=== PATIENT | male | born 1960 | race Two or more races ===

== ENCOUNTER 2020-02-14 12:22 | Emergency (ER) | payer OTHER, SELFPAY ==
[2020-02-14 12:58] VITALS: BP 116/75; PULSE 61; RESP 18; TEMP 36.8; O2SAT 98; BMI 22.1
--- NOTE | 2020-02-14 12:59 | XR_ITS ---
EXAMINATION: XR FINGER, LEFT CLINICAL INFORMATION: Thumb clicking COMPARISON: None TECHNIQUE: Three views of the left thumb. FINDINGS: The bones and soft tissues are normal. No fracture. Alignment is anatomic. Joint spaces are maintained. XR/XR finger LT min 2V IMPRESSION: Unremarkable exam.
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
== END 2020-02-14 14:20 | disposition home or self-care (01) ==
LOC: HO.ED 14:02
PROVIDERS: Emergency Provider Emergency Medicine
DX: S56.312A Strain of extensor or abductor muscles, fascia and tendons of left thumb at forearm level, initial encounter (principal); M79.645 Pain in left finger(s); I10 Essential (primary) hypertension; X58.XXXA Exposure to other specified factors, initial encounter; Y93.9 Activity, unspecified; Y92.9 Unspecified place or not applicable; Y99.9 Unspecified external cause status; Z79.899 Other long term (current) drug therapy
CPT/HCPCS: 73140; 99283

== ENCOUNTER 2020-02-23 09:28 | Emergency (ER) | payer OTHER, SELFPAY ==
--- NOTE | 2020-02-23 10:24 | ECG_ITS ---
Test Reason : LIGHT HEADED Blood Pressure : / mmHG Vent. Rate : 049 BPM Atrial Rate : 049 BPM P-R Int : 144 ms QRS Dur : 106 ms QT Int : 428 ms P-R-T Axes : 059 065 048 degrees QTc Int : 386 ms Sinus bradycardia Voltage criteria for left ventricular hypertrophy Abnormal ECG No significant changes seen Referred By: Leela Owen Electronically Signed By:MARIAJOSE ASHRAF MD
[2020-02-23 10:25] VITALS: BP 136/77; PULSE 52; RESP 18; TEMP 37.2; O2SAT 98; BMI 23.0
--- NOTE | 2020-02-23 10:25 | XR_ITS ---
EXAMINATION: XR CHEST CLINICAL INFORMATION: Cough COMPARISON: None TECHNIQUE: Frontal view of the chest was obtained. FINDINGS: Cardiac and mediastinal silhouette is within normal limits. Lungs are symmetric expanded.. No focal consolidation. No effusion, edema or pneumothorax. No acute osseous abnormality seen. XR/XR chest 1V IMPRESSION: No evidence of focal consolidation.
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
[2020-02-23 10:52] LABS: MANUAL DIFF FLAG NO
[2020-02-23 10:56] LABS: Basophils Percent Auto 0.3 % (0-2); Eosinophils Absolute Auto 0.1 X10*3/uL (0.0-0.4); Eosinophils Percent Auto 0.6 % (0-4); Hematocrit 41.1 % (42-52); Hemoglobin 14.2 g/dl (14.0-18.0); Imm Gran Abs Auto 0.03 X10*3/uL (0.00-0.03); Imm Gran Pct Auto 0.3 % (0.0-0.4); Lymphocytes Absolute Auto 2.8 X10*3/uL (1.2-4.9); Lymphocytes Percent Auto 26.7 % (20-40); Mean Corpuscular HGB Conc 34.5 g/dl (31.0-36.0); Mean Corpuscular Hemoglobin 31.6 pg (27.0-33.0); Mean Corpuscular Volume 91.3 fL (80-98); Mean Platelet Volume 10.4 fL (9.4-12.4); Monocytes Absolute Auto 0.8 X10*3/uL (0.1-1.2); Monocytes Percent Auto 7.4 % (2-11); Neutrophils Absolute Auto 6.7 X10*3/uL (2.0-8.3); Neutrophils Percent Auto 64.7 % (45-73); Platelet Count 199 X10*3/uL (160-400); Red Cell Distribution Width 11.7 % (11.0-16.0); White Blood Count 10.4 X10*3/uL (4.8-10.8)
[2020-02-23 11:23] LABS: Anion Gap 12 (12-20); Blood Urea Nitrogen 22 mg/dL (9-16); Calcium 9.3 mg/dL (8.4-10.2); Carbon Dioxide 24 mmol/L (22-29); Chloride 105 mmol/L (96-108); Creatinine Clr Calc Pharmacy 85.5; Estimated Glomerular Filt Rate > 60; Glucose Random 79 mg/dL (60-115); Sodium 137 mmol/L (135-145)
[2020-02-23 11:27] LABS: Troponin-I High Sensitivity < 3.5 ng/L (<3.5-35.0)
[2020-02-23 11:31] VITALS: BP 118/71; PULSE 45; RESP 16; TEMP 36.6; O2SAT 98
[2020-02-23] MEDS: ondansetron HCL 4 MG/2 ML VIAL IVPUSH (11:33)
[2020-02-23] MEDS: Acetaminophen 325 MG TABLET 650 MG PO (11:33)
[2020-02-23] MEDS: 0.9 % Sodium Chloride 500 ML IV (11:33)
[2020-02-23 13:13] LABS: Alanine Aminotransferase 23 U/L (0-40); Albumin Level 3.9 g/dL (3.5-5.0); Alkaline Phosphatase 58 U/L (39-117); Aspartate Amino Transferase 22 U/L (5-37); Bilirubin Direct 0.2 mg/dL (0.0-0.5); Bilirubin Total 0.5 mg/dL (0.0-1.0); Lipase 15 U/L (8-78); Magnesium 2.1 mg/dL (1.6-2.6); Total Protein 6.5 g/dL (6.5-8.0)
== END 2020-02-23 13:30 | disposition home or self-care (01) ==
PROVIDERS: Emergency Provider Emergency Medicine
DX: M79.10 Myalgia, unspecified site (principal); I10 Essential (primary) hypertension; R11.2 Nausea with vomiting, unspecified; R42 Dizziness and giddiness; F17.200 Nicotine dependence, unspecified, uncomplicated; Z20.828 Contact with and (suspected) exposure to other viral communicable diseases; Z71.6 Tobacco abuse counseling; Z79.899 Other long term (current) drug therapy
CPT/HCPCS: 36415; 71045; 80048; 80076; 83690; 83735; 84484; 85025; 93005; 96361; 96374; 99284; J2405; U0003

== ENCOUNTER 2020-02-26 09:17 | Emergency (ER) | payer OTHER, SELFPAY ==
[2020-02-26 09:28] VITALS: BP 158/107; PULSE 71; RESP 18; TEMP 36.6; O2SAT 100; BMI 22.1
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
[2020-02-26 09:48] LABS: Basophils Percent Auto 0.4 % (0-2); Eosinophils Absolute Auto 0.2 X10*3/uL (0.0-0.4); Eosinophils Percent Auto 2.5 % (0-4); Hematocrit 43.8 % (42-52); Hemoglobin 15.2 g/dl (14.0-18.0); Imm Gran Abs Auto 0.02 X10*3/uL (0.00-0.03); Imm Gran Pct Auto 0.3 % (0.0-0.4); Lymphocytes Absolute Auto 2.6 X10*3/uL (1.2-4.9); MANUAL DIFF FLAG NO; Mean Corpuscular HGB Conc 34.7 g/dl (31.0-36.0); Mean Corpuscular Hemoglobin 31.9 pg (27.0-33.0); Mean Corpuscular Volume 91.8 fL (80-98); Mean Platelet Volume 10.1 fL (9.4-12.4); Monocytes Absolute Auto 0.6 X10*3/uL (0.1-1.2); Neutrophils Absolute Auto 3.5 X10*3/uL (2.0-8.3); Neutrophils Percent Auto 50.8 % (45-73); Platelet Count 207 X10*3/uL (160-400); Red Blood Count 4.77 X10*6/uL (4.60-5.80); Red Cell Distribution Width 11.3 % (11.0-16.0); White Blood Count 6.9 X10*3/uL (4.8-10.8)
[2020-02-26] MEDS: LORazepam 2 MG/ML VIAL 1 MG IVPUSH (09:50)
[2020-02-26] MEDS: 0.9 % Sodium Chloride 500 ML 1000 ML IV (09:50)
[2020-02-26] MEDS: ondansetron HCL 4 MG/2 ML VIAL IVPUSH (09:50)
[2020-02-26 10:23] LABS: Ethanol 38 mg/dL
[2020-02-26 10:29] LABS: Alanine Aminotransferase 29 U/L (0-40); Albumin Level 4.6 g/dL (3.5-5.0); Alkaline Phosphatase 77 U/L (39-117); Anion Gap 11 (12-20); Aspartate Amino Transferase 26 U/L (5-37); Bilirubin Direct 0.2 mg/dL (0.0-0.5); Bilirubin Total 0.6 mg/dL (0.0-1.0); Blood Urea Nitrogen 17 mg/dL (9-16); Calcium 9.7 mg/dL (8.4-10.2); Carbon Dioxide 29 mmol/L (22-29); Chloride 101 mmol/L (96-108); Creatinine Clr Calc Pharmacy 78.2; Estimated Glomerular Filt Rate > 60; Glucose Random 103 mg/dL (60-115); Lipase 22 U/L (8-78); Potassium 3.9 mmol/l (3.3-5.1); Sodium 137 mmol/L (135-145); Total Protein 7.7 g/dL (6.5-8.0)
[2020-02-26] MEDS: Famotidine/PF 20 MG/2 ML VIAL IVPUSH (10:29)
[2020-02-26 10:33] LABS: Glucose Urine UA NEG (NEG); Leukocyte Esterase Urine NEG (NEG); Nitrite Urine NEG (NEG); Urine Blood NEG (NEG); Urine Ketones NEG (NEG); Urine Protein NEG (NEG-TRACE)
[2020-02-26 10:39] LABS: Appearance Urine CLEAR; Color Urine YELLOW; UACC Culture Trigger NO
[2020-02-26 11:16] VITALS: BP 114/72; PULSE 60; RESP 16
== END 2020-02-26 11:41 | disposition home or self-care (01) ==
PROVIDERS: Emergency Provider Emergency Medicine
DX: K29.20 Alcoholic gastritis without bleeding (principal); R10.9 Unspecified abdominal pain; F41.1 Generalized anxiety disorder; F43.0 Acute stress reaction; Z79.899 Other long term (current) drug therapy
CPT/HCPCS: 36415; 80048; 80076; 80320; 81003; 83690; 85025; 96374; 96375; 99284; J2060; J2405

== ENCOUNTER 2020-02-29 22:13 | Emergency (ER) | payer OTHER, SELFPAY ==
[2020-02-29 22:19] VITALS: BP 151/81; PULSE 73; RESP 19; TEMP 36.8; O2SAT 100; BMI 50.3
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
--- NOTE | 2020-02-29 23:04 | XR_ITS ---
EXAMINATION: XR ABDOMEN KUB CLINICAL INDICATION: Severe constipation. COMPARISON: None TECHNIQUE: AP view of the abdomen. FINDINGS: Small volume of stool in the colon. Most of the stool is in the ascending colon with very little stool in the left colon. No abnormal dilated bowel. Nonobstructive bowel pattern. No radiopaque urinary calculi. XR/XR KUB IMPRESSION: Normal abdomen. Small volume of stool in colon.
[2020-02-29] MEDS: Milk of Magnesia 30 ML ORAL.SUSP PO (23:27)
[2020-02-29] MEDS: bisacodyL 5 MG TABLET.DR 10 MG PO (23:27)
== END 2020-03-01 | disposition home or self-care (01) ==
PROVIDERS: Emergency Provider Internal Medicine
DX: K64.8 Other hemorrhoids (principal); K59.04 Chronic idiopathic constipation; F17.200 Nicotine dependence, unspecified, uncomplicated; Z71.6 Tobacco abuse counseling; F12.90 Cannabis use, unspecified, uncomplicated; Z79.899 Other long term (current) drug therapy
CPT/HCPCS: 74018; 99283

== ENCOUNTER 2020-03-31 09:28 | Emergency (ER) | payer OTHER, SELFPAY ==
[2020-03-31 09:51] VITALS: BP 145/96; PULSE 68; RESP 18; TEMP 36.7; O2SAT 99; BMI 22.1
--- NOTE | 2020-03-31 10:32 | ECG_ITS ---
Test Reason : MULTI COMPLAINTS Blood Pressure : / mmHG Vent. Rate : 055 BPM Atrial Rate : 055 BPM P-R Int : 150 ms QRS Dur : 100 ms QT Int : 412 ms P-R-T Axes : 059 064 048 degrees QTc Int : 394 ms Sinus bradycardia Moderate voltage criteria for LVH, may be normal variant Borderline ECG When compared with ECG of 23-FEB-2020 10:33, No significant change was found Referred By: Anabella Smith Electronically Signed By:Steven Kaur
--- NOTE | 2020-03-31 10:33 | XR_ITS ---
EXAMINATION: XR CHEST CLINICAL INFORMATION: Shortness of breath, abdominal pain COMPARISON: Chest radiograph 02/23/2020 TECHNIQUE: Portable upright AP view of the chest was obtained. FINDINGS: The lungs are clear. There is no airspace consolidation, definite groundglass opacity, or effusion. The heart is normal in size. The costophrenic sulci are clear. The vascularity is normal. The hilar and mediastinal contours are unremarkable. No visible acute bony abnormality. XR/XR chest 1V IMPRESSION: Unremarkable examination.
[2020-03-31] MEDS: 0.9 % Sodium Chloride 1,000 ML 999 ML IVCONT (11:11)
[2020-03-31 11:13] LABS: MANUAL DIFF FLAG NO
[2020-03-31 11:14] LABS: Basophils Percent Auto 0.3 % (0-2); Eosinophils Absolute Auto 0.1 X10*3/uL (0.0-0.4); Hematocrit 41.9 % (42-52); Hemoglobin 14.7 g/dl (14.0-18.0); Imm Gran Abs Auto 0.02 X10*3/uL (0.00-0.03); Imm Gran Pct Auto 0.3 % (0.0-0.4); Lymphocytes Absolute Auto 1.7 X10*3/uL (1.2-4.9); Lymphocytes Percent Auto 23.9 % (20-40); Mean Corpuscular HGB Conc 35.1 g/dl (31.0-36.0); Mean Corpuscular Hemoglobin 31.3 pg (27.0-33.0); Mean Corpuscular Volume 89.3 fL (80-98); Mean Platelet Volume 10.5 fL (9.4-12.4); Monocytes Absolute Auto 0.4 X10*3/uL (0.1-1.2); Monocytes Percent Auto 6.1 % (2-11); Neutrophils Absolute Auto 4.7 X10*3/uL (2.0-8.3); Neutrophils Percent Auto 67.4 % (45-73); Platelet Count 178 X10*3/uL (160-400); Red Blood Count 4.69 X10*6/uL (4.60-5.80); Red Cell Distribution Width 11.8 % (11.0-16.0); White Blood Count 6.9 X10*3/uL (4.8-10.8)
[2020-03-31 11:21] LABS: Glucose Urine UA NEG (NEG); Leukocyte Esterase Urine NEG (NEG); Nitrite Urine NEG (NEG); Specific Gravity - Urine 1.015 (1.005-1.025); Urine Blood NEG (NEG); Urine Ketones NEG (NEG); Urine Protein NEG (NEG-TRACE)
[2020-03-31 11:23] LABS: Appearance Urine CLEAR; Color Urine YELLOW
[2020-03-31 11:24] LABS: D Dimer < 200 NG/ML
[2020-03-31 11:26] LABS: Prothrombin Time 11.7 SEC (10.8-13.0)
[2020-03-31 11:36] LABS: Ethanol < 10 mg/dL
[2020-03-31 11:37] LABS: Alanine Aminotransferase 19 U/L (0-40); Albumin Level 4.4 g/dL (3.5-5.0); Alkaline Phosphatase 65 U/L (39-117); Anion Gap 14 (12-20); Aspartate Amino Transferase 21 U/L (5-37); Bilirubin Direct 0.2 mg/dL (0.0-0.5); Bilirubin Total 0.4 mg/dL (0.0-1.0); Blood Urea Nitrogen 21 mg/dL (9-16); Calcium 9.9 mg/dL (8.4-10.2); Carbon Dioxide 27 mmol/L (22-29); Chloride 102 mmol/L (96-108); Creatinine Clr Calc Pharmacy 85.1; Estimated Glomerular Filt Rate > 60; Glucose Random 99 mg/dL (60-115); Magnesium 2.1 mg/dL (1.6-2.6); Potassium 4.2 mmol/l (3.3-5.1); Sodium 139 mmol/L (135-145); Total Protein 7.4 g/dL (6.5-8.0)
[2020-03-31 11:38] LABS: Lipase 27 U/L (8-78)
[2020-03-31 11:38] LABS: Amphetamine Screen Urine Not Detected (Not Detect); Barbiturates, Urine Not Detected (Not Detect); Benzodiazepines Screen Urine Not Detected (Not Detect); Cannabinoid Screen Urine POSITIVE (Not Detect); Cocaine Screen Urine Not Detected (Not Detect); Opiate Screen Urine Not Detected (Not Detect); Phencyclidine Screen Urine Not Detected (Not Detect)
--- NOTE | 2020-03-31 11:38 | CT_ITS ---
EXAMINATION: CT ABDOMEN AND PELVIS WITHOUT CONTRAST CLINICAL INFORMATION: Abdominal pain COMPARISON: KUB February 2020 TECHNIQUE: Multidetector volumetric imaging was performed from the superior aspect of the liver through the pubic symphysis. Sagittal and coronal reformatted images were obtained on the technologist's workstation. This CT examination was performed using dose optimization techniques as appropriate, variously including the following: *Automated exposure control *Adjustment of mA and/or kV according to patient size (this includes techniques or standardized protocols for targeted exams where dose is matched to indication/reason for exam; i.e. extremities or head) *Use of iterative reconstruction technique DLP: 384 mGy-cm FINDINGS: LUNG BASES: The visualized lung bases are unremarkable. LIVER, GALLBLADDER, AND BILIARY TREE: The liver is normal in size, shape, and attenuation. No focal hepatic lesion or biliary ductal dilatation is present. The gallbladder is unremarkable with no evidence of radiopaque gallstones, gallbladder wall thickening, or obvious pericholecystic inflammatory changes. PANCREAS: Unremarkable. SPLEEN: Unremarkable. ADRENAL GLANDS: Unremarkable. KIDNEYS AND URETERS: There is a small 1 mm nonobstructing stone in the lower pole of the left kidney. The kidneys are otherwise unremarkable. No hydronephrosis, ureteral dilatation or ureteral stone is seen. BLADDER: There is mild diffuse bladder wall thickening. No bladder stone or mass is seen. GASTROINTESTINAL TRACT: The small and large bowel are unremarkable. The appendix is unremarkable. ABDOMINAL WALL: No significant hernia is appreciated. LYMPH NODES: Normal. VASCULAR: There is evidence of atherosclerotic disease. No aneurysm is seen. PELVIC VISCERA: The prostate gland is slightly enlarged measuring 3 x 4.5 x 4 cm. OSSEOUS STRUCTURES: There is degenerative disc disease at L4-L5. There is multilevel mild degenerative spondylosis. CT/CT abdomen pelvis wo con IMPRESSION: Small 1 mm nonobstructing left lower pole renal stone. Mild diffuse bladder wall thickening. Slightly enlarged prostate gland.
[2020-03-31 11:44] LABS: B Type Natriuretic Peptide < 10 pg/mL (<100); Troponin-I High Sensitivity < 3.5 ng/L (<3.5-35.0)
[2020-03-31 11:50] LABS: Influenza A PCR NEGATIVE (Negative); Influenza B PCR NEGATIVE (Negative); Resp Syncy Virus RNA Qual PCR NEGATIVE (Negative); SARS COV2 PCR INHOUSE NEGATIVE (Negative)
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
[2020-03-31 14:12] VITALS: BP 113/71; PULSE 50; RESP 18
== END 2020-03-31 15:02 | disposition home or self-care (01) ==
PROVIDERS: Physician Assistant Medical; Emergency Provider Emergency Medicine Emergency Medical Services
DX: J45.909 Unspecified asthma, uncomplicated (principal); Z20.828 Contact with and (suspected) exposure to other viral communicable diseases; N40.0 Benign prostatic hyperplasia without lower urinary tract symptoms; N20.0 Calculus of kidney; I10 Essential (primary) hypertension; F12.90 Cannabis use, unspecified, uncomplicated
CPT/HCPCS: 0241U; 36415; 71045; 74176; 80048; 80076; 80307; 80320; 81003; 83690; 83735; 83880; 84484; 85025; 85379; 85610; 93005; 96360; 99284

== ENCOUNTER 2020-04-12 21:02 | Emergency (ER) | payer OTHER, SELFPAY ==
[2020-04-12 21:20] VITALS: BP 141/75; PULSE 70; RESP 18; TEMP 36.6; O2SAT 97; BMI 22.1
[2020-04-12 23:49] VITALS: BP 120/75; PULSE 64; RESP 16; O2SAT 99
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
[2020-04-13 00:27] LABS: MANUAL DIFF FLAG NO
[2020-04-13 00:31] LABS: Basophils Percent Auto 0.4 % (0-2); Eosinophils Absolute Auto 0.3 X10*3/uL (0.0-0.4); Eosinophils Percent Auto 3.5 % (0-4); Hematocrit 38.4 % (42-52); Hemoglobin 13.4 g/dl (14.0-18.0); Imm Gran Abs Auto 0.01 X10*3/uL (0.00-0.03); Imm Gran Pct Auto 0.1 % (0.0-0.4); Lymphocytes Absolute Auto 2.9 X10*3/uL (1.2-4.9); Mean Corpuscular HGB Conc 34.9 g/dl (31.0-36.0); Mean Corpuscular Hemoglobin 31.6 pg (27.0-33.0); Mean Corpuscular Volume 90.6 fL (80-98); Mean Platelet Volume 10.5 fL (9.4-12.4); Monocytes Absolute Auto 0.6 X10*3/uL (0.1-1.2); Monocytes Percent Auto 7.7 % (2-11); Neutrophils Percent Auto 51.3 % (45-73); OBS Int Ctl Valid YES; OBS1 NEG (NEG); Platelet Count 185 X10*3/uL (160-400); Red Blood Count 4.24 X10*6/uL (4.60-5.80); White Blood Count 7.7 X10*3/uL (4.8-10.8)
[2020-04-13 00:38] LABS: Prothrombin Time 11.9 SEC (10.8-13.0)
[2020-04-13 01:04] LABS: Alanine Aminotransferase 26 U/L (0-40); Albumin Level 4.3 g/dL (3.5-5.0); Alkaline Phosphatase 61 U/L (39-117); Anion Gap 12 (12-20); Aspartate Amino Transferase 23 U/L (5-37); Bilirubin Total 0.6 mg/dL (0.0-1.0); Blood Urea Nitrogen 25 mg/dL (9-16); Calcium 9.3 mg/dL (8.4-10.2); Carbon Dioxide 28 mmol/L (22-29); Chloride 102 mmol/L (96-108); Creatinine Clr Calc Pharmacy 73.1; Estimated Glomerular Filt Rate > 60; Glucose Random 88 mg/dL (60-115); Potassium 3.7 mmol/l (3.3-5.1); Sodium 138 mmol/L (135-145)
== END 2020-04-13 03:05 | disposition home or self-care (01) ==
PROVIDERS: Emergency Provider Student in an Organized Health Care Education/Training Program
DX: K64.8 Other hemorrhoids (principal); I10 Essential (primary) hypertension
CPT/HCPCS: 36415; 80053; 82272; 85025; 85610; 99284

== ENCOUNTER 2020-04-16 12:49 | Emergency (ER) | payer OTHER, SELFPAY ==
[2020-04-16 13:17] VITALS: BP 119/65; PULSE 60; RESP 16; TEMP 36.8; O2SAT 97; BMI 22.1
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
[2020-04-16] MEDS: 0.9 % Sodium Chloride 1,000 ML 999 ML IVCONT (14:52)
[2020-04-16] MEDS: Morphine Sulfate 4 MG/ML CARTRIDGE IVPUSH (14:52)
[2020-04-16] MEDS: ondansetron HCL 4 MG/2 ML VIAL IVPUSH (14:53)
[2020-04-16 15:05] LABS: Basophils Percent Auto 0.4 % (0-2); Eosinophils Absolute Auto 0.2 X10*3/uL (0.0-0.4); Eosinophils Percent Auto 2.5 % (0-4); Hemoglobin 13.6 g/dl (14.0-18.0); Imm Gran Abs Auto 0.02 X10*3/uL (0.00-0.03); Imm Gran Pct Auto 0.2 % (0.0-0.4); Lymphocytes Absolute Auto 2.4 X10*3/uL (1.2-4.9); Lymphocytes Percent Auto 28.2 % (20-40); MANUAL DIFF FLAG NO; Mean Corpuscular HGB Conc 34.9 g/dl (31.0-36.0); Mean Corpuscular Hemoglobin 31.4 pg (27.0-33.0); Mean Corpuscular Volume 90.1 fL (80-98); Mean Platelet Volume 10.3 fL (9.4-12.4); Monocytes Absolute Auto 0.5 X10*3/uL (0.1-1.2); Monocytes Percent Auto 6.4 % (2-11); Neutrophils Absolute Auto 5.2 X10*3/uL (2.0-8.3); Neutrophils Percent Auto 62.3 % (45-73); Platelet Count 191 X10*3/uL (160-400); Red Blood Count 4.33 X10*6/uL (4.60-5.80); Red Cell Distribution Width 11.6 % (11.0-16.0); White Blood Count 8.4 X10*3/uL (4.8-10.8)
[2020-04-16 15:32] LABS: Alanine Aminotransferase 23 U/L (0-40); Albumin Level 4.3 g/dL (3.5-5.0); Alkaline Phosphatase 70 U/L (39-117); Anion Gap 11 (12-20); Aspartate Amino Transferase 21 U/L (5-37); Bilirubin Total 0.5 mg/dL (0.0-1.0); Blood Urea Nitrogen 14 mg/dL (9-16); Calcium 9.2 mg/dL (8.4-10.2); Carbon Dioxide 29 mmol/L (22-29); Chloride 104 mmol/L (96-108); Creatinine Clr Calc Pharmacy 90.1; Estimated Glomerular Filt Rate > 60; Glucose Random 118 mg/dL (60-115); Lipase 26 U/L (8-78); Potassium 3.9 mmol/l (3.3-5.1); Sodium 140 mmol/L (135-145); Total Protein 6.9 g/dL (6.5-8.0)
== END 2020-04-16 16:27 | disposition home or self-care (01) ==
PROVIDERS: Emergency Provider Emergency Medicine
DX: K59.00 Constipation, unspecified (principal); R10.2 Pelvic and perineal pain; F17.200 Nicotine dependence, unspecified, uncomplicated; Z71.6 Tobacco abuse counseling; Z79.899 Other long term (current) drug therapy
CPT/HCPCS: 36415; 80053; 83690; 85025; 96361; 96374; 96375; 99283; 99284; J2270; J2405

== ENCOUNTER → 2020-04-24 12:14 | Outpatient (BNVA) | payer OTHER, SELFPAY | PROVIDERS: Visit Provider Surgery | DX: K64.9 Unspecified hemorrhoids (principal) | CPT/HCPCS: 46600; 99202 ==

== ENCOUNTER 2020-05-19 08:31 | Day surgery (SDC) | payer OTHER, SELFPAY ==
[2020-05-12 14:51] VITALS: BMI 22.1
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
[2020-05-19 08:55] VITALS: BP 151/90; PULSE 66; RESP 16; TEMP 37.2; O2SAT 100
[2020-05-19] MEDS: Lactated Ringers 1,000 ML 100 ML IVCONT (09:00)
--- NOTE | 2020-05-19 09:03 | MHC.SHP ---
Pre-Procedural Eval Section B Chief Complaint: Bleeding hemorrhoids Allergies: Allergies Allergy/AdvReac Type Severity Reaction Status Date / Time iodine [IODINE] Allergy Unknown ITCHING Verified 05/12/20 14:32 quetiapine [From SEROQUEL] Allergy Unknown TIGHTNESS Verified 05/12/20 14:32 IN THROAT levofloxacin [From Levaquin] Allergy Anaphylaxis Verified 05/12/20 14:32 Plan I have reviewed the history and physical and performed a pertinent physical examination on my patient. No changes have occurred unless specified.
[2020-05-19 10:04] VITALS: BP 118/64; PULSE 48; RESP 16; TEMP 36.8; O2SAT 98
--- NOTE | 2020-05-19 10:04 | PM.OP ---
Brief Operative Note Date of Service: 05/19/20 Pre-op diagnosis: Internal and external hemorrhoids with pain and bleeding Post-op diagnosis: same Procedure: EUA, hemorrhoidectomy, x2 columns Surgeon: Kaiser Perkins MD Anesthesia: GLMA Estimated blood loss (mL): 20 Pathology: other (hemorrhoids) Condition: stable Disposition: PACU
--- NOTE | 2020-05-19 10:06 | P.OP_ITS ---
Operative Note Operative Note Date of Service: 05/19/20 Narrative: PROCEDURE EXAM UNDER ANESTHESIA, HEMORRHOIDECTOMY X2 COLUMNS PREOP DIAGNOSIS: INTERNAL AND EXTERNAL HEMORRHOIDS WITH PAIN AND BLEEDING POSTOP DIAGNOSIS: THE SAME ABOVE SURGEON: ADRIEN LO MD The patient is a 60-year-old male with longstanding issues with his hemorrhoids described as pain and bleeding. He therefore wanted to proceed with hemorrhoidectomy. He understood the technique of the procedure. He was aware of the risks, benefits, and alternatives. He was brought to the operating room placed in prone jeni-knife position under general anesthesia via laryngeal mask airway. The buttocks were retracted with wide tape laterally. The perianal was prepped and draped in the usual sterile fashion. A surgical time-out was done. The patient received Cefotan 2 g IV preoperatively. Examination of the anal orifice revealed an external hemorrhoid, bulky, on the right side. I inserted a Khalif Rivas retractor and examined the anal circumferentially. There was note of an internal and external hemorrhoidal column, bulky, on the right side. There was note of a hemorrhoidal column on the left which was also mix of internal and external hemorrhoids with the internal component appearing to prolapse easily. There were no other lesions. There was no fissure. There was no induration in the anal canal. I retracted the hemorrhoidal column on the right side with Marcelo graspers into the field of view. I proceeded to apply a figure-eight stitch with a chromic 3-0 at the pedicle of the hemorrhoid column on the right side. I made incision around this hemorrhoid column to the perianal skin using a blade 15. I excised this hemorrhoidal column above the plane of sphincters using scissors all the way to the pedicle. I then closed this incision with a running chromic 3-0 stitch. I proceeded to apply Marcelo graspers at the hemorrhoidal column on the left. This was used to retract the hemorrhoidal column out into the field. I made a figure of eight stitch at the pedicle proximal to the dentate line using chromic 3-0 and made an incision around this column to the anal verge using blade 15. I then excised this hemorrhoid column using scissors above the plane of sphincters . I closed this incision with a running chromic 3-0 stitch. Multiple additional hemostatic [id number] sutures were placed on the proximal aspect because of oozing. We observed for hemostasis. We cough fistulae irrigated and suctioned the irrigant fluid. I observed for about 2 minutes and once hemostasis was ensured I proceeded to then position a Gel-Foam packing into the anal canal. I infiltrated the perianal area with Marcaine 0.5% for postop analgesia. The Khalif Rivas retractor was removed the procedure was completed. The patient tolerated the procedure well. There were no immediate complications noted. Initial and final counts of sponges and instruments were correct. Estimated blood about 20 cc. The patient was extubated without difficulty and transferred to recovery room with stable by signs.
[2020-05-19 10:07] VITALS: BP 110/65; PULSE 48; RESP 14; O2SAT 94
[2020-05-19 10:12] VITALS: BP 109/63; PULSE 53; RESP 16; O2SAT 96
[2020-05-19 10:17] VITALS: BP 125/59; PULSE 56; RESP 18; O2SAT 97
[2020-05-19 10:32] VITALS: BP 122/58; PULSE 59; RESP 18; TEMP 36.8; O2SAT 97
--- NOTE | 2020-05-19 11:41 | HO.POSTANES ---
Post Anesthesia Evaluation Post Anesthesia Evaluation Vital Signs: Vital Signs Temp Pulse Resp BP Pulse Ox 05/19/20 10:32 98.2 F 59 18 122/58 L 97 05/19/20 10:17 56 18 125/59 L 97 05/19/20 10:12 53 16 109/63 96 05/19/20 10:07 48 L 14 110/65 94 05/19/20 10:04 98.3 F 48 L 16 118/64 98 05/19/20 08:55 99.0 F 66 16 151/90 H 100 Anesthesia: General LMA Mental Status: Awake Pain Control: Satisfactory Nausea/Vomiting: None Hydration: Adequate Anesthesia-Related Issues: No Anes. Related Issues
== END 2020-05-19 11:16 | disposition home or self-care (01) ==
PROVIDERS: Visit Provider Surgery
PROC: (CPT 46260; principal; 2020-05-19 10:30)
DX: K64.8 Other hemorrhoids (principal); K64.4 Residual hemorrhoidal skin tags; I10 Essential (primary) hypertension; Z79.899 Other long term (current) drug therapy
CPT/HCPCS: 46260; 88304; J1100; J2250; J2405; J3010

== ENCOUNTER → 2020-06-01 08:48 | Outpatient (BNVA) | payer OTHER, SELFPAY | PROVIDERS: Visit Provider Surgery | DX: K64.9 Unspecified hemorrhoids (principal) | CPT/HCPCS: 99212 ==

== ENCOUNTER 2020-08-18 07:47 | Outpatient (REF) | payer OTHER, SELFPAY ==
--- NOTE | ~2020-08-18 | XR_ITS ---
EXAMINATION: XR SHOULDER, RIGHT CLINICAL INFORMATION: Pain COMPARISON: Previous x-ray May 2019 TECHNIQUE: Three views of the right shoulder. FINDINGS: Bone alignment is normal. No fracture or dislocation is seen. There is arthritis at the glenohumeral and acromioclavicular joints with joint space narrowing and osteophyte formation. Soft tissues are unremarkable. XR/XR shoulder RT min 2V IMPRESSION: Arthritis.
== END 2020-08-18 07:48 | disposition home or self-care (01) ==
LOC: HO.HOSX 07:47
PROVIDERS: Visit Provider Physician Assistant
DX: M19.011 Primary osteoarthritis, right shoulder (principal)
CPT/HCPCS: 73030; 99202

== ENCOUNTER 2020-09-22 13:26 | Outpatient (REF) | payer OTHER, SELFPAY ==
--- NOTE | ~2020-09-22 | XR_ITS ---
EXAMINATION: XR CERVICAL SPINE CLINICAL INFORMATION: Neck pain. COMPARISON: None TECHNIQUE: 6 views of the cervical spine, inclusive of flexion and extension views, were obtained. FINDINGS: There is normal cervical lordosis and spinal alignment. Mild to moderate multilevel degenerative disc disease is seen from C3-C4 to C6-C7 with disc space narrowing, sclerosis and adjacent endplates, marginal osteophyte formation and mild bilateral neural foraminal narrowing. Mild multilevel bilateral facet arthropathy is seen. The odontoid process is intact. The prevertebral soft tissues are unremarkable. XR/XR cervical spine min 6V IMPRESSION: Mild to moderate multilevel degenerative changes as detailed above. No acute abnormality.
== END 2020-09-22 13:27 | disposition home or self-care (01) ==
LOC: HO.XRAY 13:26
PROVIDERS: Visit Provider Nurse Practitioner Family
DX: M54.2 Cervicalgia (principal)
CPT/HCPCS: 72052; 99202

== ENCOUNTER → 2020-10-20 08:39 | Outpatient (BNVA) | payer OTHER, SELFPAY | PROVIDERS: Visit Provider Nurse Practitioner Family ==

== ENCOUNTER 2020-10-21 10:31 | Emergency (ER) | payer OTHER, SELFPAY ==
--- NOTE | ~2020-10-21 | XR_ITS ---
EXAMINATION: XR CHEST CLINICAL INFORMATION: Dyspnea COMPARISON: 03/31/2020 TECHNIQUE: Frontal view of the chest was obtained. FINDINGS: Lungs are well expanded. The bronchial boyd appear to be chronically, mildly thickened. Query if there is history of cigarette smoking, bronchitis or asthma. No acute findings. No pulmonary edema, consolidation or pleural effusion. Cardiomediastinal silhouette has normal size and contour. The visualized bones are intact. XR/XR chest 1V IMPRESSION: No acute pulmonary disease compared to 03/31/2020.
[2020-10-21 10:48] VITALS: BP 118/76; PULSE 59; RESP 16; TEMP 36.6; O2SAT 99; BMI 23.6
[2020-10-21 11:02] VITALS: BP 133/83; PULSE 60; RESP 16; TEMP 36.7; O2SAT 99
--- NOTE | 2020-10-21 11:05 | ECG_ITS ---
Test Reason : DIZZINESS Blood Pressure : / mmHG Vent. Rate : 056 BPM Atrial Rate : 056 BPM P-R Int : 160 ms QRS Dur : 102 ms QT Int : 420 ms P-R-T Axes : 052 059 041 degrees QTc Int : 405 ms Sinus bradycardia Moderate voltage criteria for LVH, may be normal variant Borderline ECG When compared with ECG of 31-MAR-2020 10:57, No significant change was found Referred By: Leela Owen Electronically Signed By:MARY KWAN
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
[2020-10-21] MEDS: Lidocaine 4 % Patch ADH..PATCH 1 PATCH TRANSDERMA (11:31)
[2020-10-21] MEDS: diazePAM 5 MG TABLET PO (11:32)
[2020-10-21 11:34] LABS: MANUAL DIFF FLAG NO
[2020-10-21 11:37] LABS: Basophils Percent Auto 0.3 % (0-2); Eosinophils Absolute Auto 0.2 X10*3/uL (0.0-0.4); Eosinophils Percent Auto 2.7 % (0-4); Hematocrit 40.3 % (42-52); Hemoglobin 13.9 g/dl (14.0-18.0); Imm Gran Abs Auto 0.02 X10*3/uL (0.00-0.03); Imm Gran Pct Auto 0.3 % (0.0-0.4); Lymphocytes Absolute Auto 1.5 X10*3/uL (1.2-4.9); Lymphocytes Percent Auto 21.4 % (20-40); Mean Corpuscular HGB Conc 34.5 g/dl (31.0-36.0); Mean Corpuscular Hemoglobin 31.2 pg (27.0-33.0); Mean Corpuscular Volume 90.6 fL (80-98); Mean Platelet Volume 10.2 fL (9.4-12.4); Monocytes Absolute Auto 0.4 X10*3/uL (0.1-1.2); Monocytes Percent Auto 6.1 % (2-11); Neutrophils Absolute Auto 4.9 X10*3/uL (2.0-8.3); Neutrophils Percent Auto 69.2 % (45-73); Platelet Count 170 X10*3/uL (160-400); Red Blood Count 4.45 X10*6/uL (4.60-5.80); Red Cell Distribution Width 11.9 % (11.0-16.0); White Blood Count 7.1 X10*3/uL (4.8-10.8)
[2020-10-21 11:47] LABS: COVID-19 Test Negative (Negative)
[2020-10-21 12:06] LABS: Alanine Aminotransferase 24 U/L (0-40); Albumin Level 4.3 g/dL (3.5-5.0); Alkaline Phosphatase 64 U/L (39-117); Anion Gap 12 (12-20); Aspartate Amino Transferase 33 U/L (5-37); Bilirubin Direct 0.3 mg/dL (0.0-0.5); Bilirubin Total 0.6 mg/dL (0.0-1.0); Blood Urea Nitrogen 16 mg/dL (9-16); Calcium 10.1 mg/dL (8.4-10.2); Carbon Dioxide 27 mmol/L (22-29); Chloride 103 mmol/L (96-108); Creatinine Clr Calc Pharmacy 80.5; Estimated Glomerular Filt Rate > 60; Glucose Random 96 mg/dL (60-115); Magnesium 1.6 mg/dL (1.6-2.6); Potassium 4.1 mmol/L (3.3-5.1); Sodium 138 mmol/L (135-145)
[2020-10-21 12:18] LABS: Troponin-I High Sensitivity < 3.5 ng/L (<3.5-35.0)
== END 2020-10-21 12:33 | disposition home or self-care (01) ==
PROVIDERS: Emergency Provider Emergency Medicine
DX: M54.2 Cervicalgia (principal); J43.9 Emphysema, unspecified; I10 Essential (primary) hypertension; F17.210 Nicotine dependence, cigarettes, uncomplicated; Z79.899 Other long term (current) drug therapy; Z20.822 Contact with and (suspected) exposure to COVID-19
CPT/HCPCS: 36415; 71045; 80048; 80076; 83735; 84484; 85025; 87635; 93005; 99283; 99284

== ENCOUNTER 2021-06-25 10:46 | Emergency (ER) | payer OTHER, SELFPAY ==
[2021-06-25 11:51] VITALS: BP 120/89; PULSE 68; RESP 18; TEMP 36.4; O2SAT 100; BMI 22.2
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
[2021-06-25] MEDS: 0.9 % Sodium Chloride 1,000 ML 125 ML IVCONT (13:53)
[2021-06-25 13:58] LABS: MANUAL DIFF FLAG NO
[2021-06-25 14:00] VITALS: BP 115/67; PULSE 53; RESP 18; O2SAT 97
[2021-06-25 14:01] LABS: Basophils Percent Auto 0.5 % (0-2); Eosinophils Absolute Auto 0.2 X10*3/uL (0.0-0.4); Eosinophils Percent Auto 2.9 % (0-4); Hematocrit 43.7 % (42.0-52.0); Hemoglobin 14.9 g/dl (14.0-18.0); Imm Gran Abs Auto 0.02 X10*3/uL (0.00-0.03); Imm Gran Pct Auto 0.2 % (0.0-0.4); Lymphocytes Absolute Auto 2.4 X10*3/uL (1.2-4.9); Mean Corpuscular HGB Conc 34.1 g/dl (31.0-36.0); Mean Corpuscular Hemoglobin 31.7 pg (27.0-33.0); Mean Platelet Volume 10.4 fL (9.4-12.4); Monocytes Absolute Auto 0.4 X10*3/uL (0.1-1.2); Neutrophils Absolute Auto 5.1 x10*3/uL (2.0-8.3); Neutrophils Percent Auto 62.4 % (45-73); Platelet Count 192 X10*3/uL (160-400); Red Cell Distribution Width 12.3 % (11.0-16.0); White Blood Count 8.2 X10*3/uL (4.8-10.8)
[2021-06-25 14:17] LABS: Alanine Aminotransferase 41 U/L (0-40); Albumin Level 4.4 g/dL (3.5-5.0); Alkaline Phosphatase 71 U/L (39-117); Anion Gap 13 (12-20); Aspartate Amino Transferase 42 U/L (5-37); Bilirubin Direct 0.2 mg/dL (0.0-0.5); Bilirubin Total 0.4 mg/dL (0.0-1.0); Blood Urea Nitrogen 19 mg/dL (9-16); Calcium 10.1 mg/dL (8.4-10.2); Carbon Dioxide 28 mmol/L (22-29); Chloride 103 mmol/L (96-108); Creatinine Clr Calc Pharmacy 80.7; Estimated Glomerular Filt Rate > 60; Glucose Random 83 mg/dL (60-115); Lipase 20 U/L (8-78); Potassium 4.7 mmol/L (3.3-5.1); Sodium 139 mmol/L (135-145); Total Protein 7.8 g/dL (6.5-8.0)
[2021-06-25] MEDS: Pantoprazole Sodium 40 MG/10 ML VIAL IVPUSH (14:54)
== END 2021-06-25 15:28 | disposition home or self-care (01) ==
PROVIDERS: Emergency Provider Emergency Medicine
DX: K29.70 Gastritis, unspecified, without bleeding (principal); K70.10 Alcoholic hepatitis without ascites; I10 Essential (primary) hypertension; F17.200 Nicotine dependence, unspecified, uncomplicated; F12.90 Cannabis use, unspecified, uncomplicated
CPT/HCPCS: 36415; 80048; 80076; 83690; 85025; 96361; 96374; 99284

== ENCOUNTER 2021-08-10 07:56 | Outpatient (REF) | payer OTHER, SELFPAY ==
--- NOTE | ~2021-08-10 | US_ITS ---
EXAMINATION: US ABDOMEN COMPLETE CLINICAL INFORMATION: Altered liver function. Concern for alcoholic cirrhosis. COMPARISON: CT abdomen and pelvis 03/31/2020. X-ray KUB 02/29/2020. TECHNIQUE: Real-time imaging of the abdominal viscera. FINDINGS: PANCREAS: The pancreas is partially obscured by gas. The visualized head and the body the pancreas are homogeneous in echotexture. ABDOMINAL AORTA: The proximal, mid, and distal segments are normal in caliber. INFERIOR VENA CAVA: Visualized portions are normal. LIVER: Normal. The liver is normal in size. The liver contour is normal. Parenchymal echogenicity is normal. No focal hepatic lesion. There is no intrahepatic biliary duct dilatation seen. GALLBLADDER: Normal. The gallbladder is physiologically distended without evidence of stones, sludge, polyps, wall thickening or pericholecystic fluid. COMMON BILE DUCT: Normal in caliber measuring 0.5 cm in diameter. RIGHT KIDNEY: There is an anechoic cyst measuring 8 x 7 x 7 mm in the mid pole. No additional cysts are seen. No hydronephrosis or renal calculi. The kidney measures 10.4 cm in maximum dimension. LEFT KIDNEY: There is an anechoic cyst in the upper pole measuring 3 x 2 x 2 mm. No additional cysts are seen. No hydronephrosis or renal calculi. The kidney measures 9.9 cm in maximum dimension. SPLEEN: Normal. The spleen measures 8.6 cm in maximum dimension. FREE FLUID: None. US/US abdomen complete IMPRESSION: Bilateral renal cysts. No echogenic renal calculi or hydronephrosis is seen. The rest of the abdominal ultrasound is unremarkable.
== END 2021-08-10 07:57 | disposition home or self-care (01) ==
LOC: HO.US 07:56
PROVIDERS: Visit Provider Nurse Practitioner
DX: R79.89 Other specified abnormal findings of blood chemistry (principal)
CPT/HCPCS: 76700

== ENCOUNTER 2022-05-15 15:49 | Emergency (ER) | payer OTHER, SELFPAY ==
--- NOTE | ~2022-05-15 | XR_ITS ---
EXAMINATION: XR CHEST CLINICAL INFORMATION: Cough COMPARISON: 10/21/2020 TECHNIQUE: Frontal view of the chest was obtained. FINDINGS: No significant abnormality is noted involving the heart, lungs, mediastinum, bony thorax or soft tissues. XR/XR chest 1V IMPRESSION: Unremarkable examination.
[2022-05-15 15:54] VITALS: BP 148/88; PULSE 66; RESP 18; TEMP 36.6; O2SAT 99; BMI 26.6
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
--- NOTE | 2022-05-15 16:25 | ECG_ITS ---
Test Reason : lung issues Blood Pressure : / mmHG Vent. Rate : 061 BPM Atrial Rate : 061 BPM P-R Int : 156 ms QRS Dur : 102 ms QT Int : 398 ms P-R-T Axes : 068 063 051 degrees QTc Int : 400 ms Normal sinus rhythm Minimal voltage criteria for LVH, may be normal variant ( Sokolow-Osullivan ) Borderline ECG When compared with ECG of 21-OCT-2020 11:19, No significant change was found Referred By: Shital Dietz Electronically Signed By:Steven Kaur
[2022-05-15 17:00] LABS: Hematocrit 40.1 % (42.0-52.0); Hemoglobin 14.1 g/dl (14.0-18.0); Mean Corpuscular HGB Conc 35.2 g/dl (31.0-36.0); Mean Corpuscular Hemoglobin 31.9 pg (27.0-33.0); Mean Corpuscular Volume 90.7 fL (80.0-98.0); Platelet Count 193 X10*3/uL (160-400); Red Blood Count 4.42 X10*6/uL (4.60-5.80); Red Cell Distribution Width 12.3 % (11.0-16.0); White Blood Count 6.6 X10*3/uL (4.8-10.8)
[2022-05-15 17:15] LABS: COVID-19 Test Negative (Negative); IDNOW Serial# 16C4AD1C; IDNOW Serial# BCCEAD1C; Influenza A Negative (Negative); Influenza B2 Negative (Negative)
[2022-05-15 17:37] LABS: Anion Gap 9 (12-20); Blood Urea Nitrogen 9 mg/dL (9-16); Calcium 9.9 mg/dL (8.4-10.2); Carbon Dioxide 27 mmol/L (22-29); Chloride 106 mmol/L (96-108); Creatinine Clr Calc Pharmacy 86.3; Estimated Glomerular Filt Rate > 60; Glucose Random 99 mg/dL (60-115); Potassium 4.1 mmol/L (3.3-5.1); Sodium 138 mmol/L (135-145)
[2022-05-15 17:39] LABS: Alanine Aminotransferase 25 U/L (0-40); Albumin Level 4.4 g/dL (3.5-5.0); Alkaline Phosphatase 75 U/L (39-117); Aspartate Amino Transferase 33 U/L (5-37); Bilirubin Direct 0.2 mg/dL (0.0-0.5); Bilirubin Total 0.6 mg/dL (0.0-1.0); Total Protein 7.2 g/dL (6.5-8.0)
[2022-05-15 17:43] LABS: B Type Natriuretic Peptide 19 pg/mL (<100)
[2022-05-15 17:49] LABS: Troponin-I High Sensitivity < 3.5 ng/L (<3.5-35.0)
[2022-05-15 18:23] VITALS: BP 142/81; PULSE 58; RESP 16; TEMP 36.8; O2SAT 99
[2022-05-15 19:53] LABS: Troponin-I High Sensitivity < 3.5 ng/L (<3.5-35.0)
[2022-05-15 20:18] LABS: D Dimer High Sensitivity < 150 NG/ML
== END 2022-05-15 21:03 | disposition home or self-care (01) ==
PROVIDERS: Nurse Practitioner Family; Physician Assistant; Emergency Provider Emergency Medicine
DX: R06.02 Shortness of breath (principal); R06.01 Orthopnea; R05.9 Cough, unspecified; I10 Essential (primary) hypertension; F17.210 Nicotine dependence, cigarettes, uncomplicated; Z20.822 Contact with and (suspected) exposure to COVID-19; Z20.828 Contact with and (suspected) exposure to other viral communicable diseases; Z71.6 Tobacco abuse counseling; Z79.899 Other long term (current) drug therapy
CPT/HCPCS: 36415; 71045; 80048; 80076; 83880; 84484; 85027; 85379; 87502; 87635; 93005; 99283; 99284

== ENCOUNTER 2022-06-13 16:15 | Outpatient (REF) | payer OTHER, SELFPAY ==
--- NOTE | ~2022-06-13 | US_ITS ---
EXAMINATION: US RETROPERITONEAL LIMITED (AORTA) CLINICAL INFORMATION: Abdominal pain. Abdominal aortic aneurysm screening. COMPARISON: None. TECHNIQUE: Pedraza-scale, color Doppler and spectral Doppler evaluation of the abdominal aorta. FINDINGS: Calcified plaque is seen in the distal aorta and both common iliac arteries without evidence of aneurysm. The measurements of the aorta in maximum AP and transverse dimensions respectively are as follows: Proximal: 2.8 x 2.4 cm. Mid: 2.1 x 1.9 cm. Distal: 2.0 x 2.2 cm. PSV: 6.8 cm/s. The measurements of the common iliac arteries in maximum AP and TRV dimensions are as follows: Right Common Iliac Artery: 1.6 x 1.7 cm. Left Common Iliac Artery: 1.4 x 1.6 cm. US/US abdominal aortic aneurysm IMPRESSION: No evidence of abdominal aortic aneurysm.
== END 2022-06-13 16:16 | disposition home or self-care (01) ==
LOC: HO.US 16:15
PROVIDERS: Visit Provider Registered Nurse
DX: Z13.6 Encounter for screening for cardiovascular disorders (principal)
CPT/HCPCS: 76706

== ENCOUNTER → 2022-06-18 08:34 | Outpatient (BNVA) | payer OTHER, SELFPAY | PROVIDERS: PCP Student in an Organized Health Care Education/Training Program; Visit Provider Internal Medicine | DX: J44.9 Chronic obstructive pulmonary disease, unspecified (principal); Z87.891 Personal history of nicotine dependence | CPT/HCPCS: 99202 ==

== ENCOUNTER 2022-07-25 | Outpatient (REF) | payer OTHER, SELFPAY | END 2022-07-25 00:01 | disposition home or self-care (01) | LOC: HO.RESP | PROVIDERS: PCP Student in an Organized Health Care Education/Training Program; Visit Provider Internal Medicine | DX: J44.9 Chronic obstructive pulmonary disease, unspecified (principal); F17.200 Nicotine dependence, unspecified, uncomplicated; Z71.6 Tobacco abuse counseling | CPT/HCPCS: 94010; 99212 ==

== ENCOUNTER 2022-07-26 13:49 | Outpatient (REF) | payer OTHER, SELFPAY ==
--- NOTE | ~2022-07-26 | CT_ITS ---
EXAMINATION: CT CHEST SCREENING CLINICAL INFORMATION: 56 pack year history. Current smoker. COMPARISON: Previous chest x-ray most recent May 2022 TECHNIQUE: Multidetector volumetric CT imaging of the chest is performed without contrast using low dose technique. Additional 2D coronal and sagittal reformatted images and axial 3D maximum intensity projection (MIP) images are generated on the CT workstation. This CT examination was performed using dose optimization techniques as appropriate, variously including the following: *Automated exposure control *Adjustment of mA and/or kV according to patient size (this includes techniques or standardized protocols for targeted exams where dose is matched to indication/reason for exam; i.e. extremities or head) *Use of iterative reconstruction technique DLP: 48 mGy-cm FINDINGS: LUNGS: Emphysema. Faint 3 mm groundglass attenuation left upper lobe nodule axial image 158 series 5 small 2 mm right upper lobe nodules probably representing endobronchial secretions axial image 174 and 186 series 5. No endobronchial or endotracheal lesion. MEDIASTINUM: The mediastinum is normal. CORONARY ARTERY CALCIFICATION: Mild PLEURA: There is no pleural effusion. No pleural mass or thickening. AXILLA: No lymphadenopathy. UPPER ABDOMEN: Unremarkable OSSEOUS STRUCTURES: Degenerative changes of the spine. CT/CT lung screening IMPRESSION: Emphysema. Small pulmonary nodules. ASSESSMENT: Lung-RADS category 2: Benign RECOMMENDATION: Annual low-dose chest CT follow-up recommended
== END 2022-07-26 13:50 | disposition home or self-care (01) ==
LOC: HO.CT 13:49
PROVIDERS: PCP Student in an Organized Health Care Education/Training Program; Visit Provider Physician Assistant Medical
DX: Z12.2 Encounter for screening for malignant neoplasm of respiratory organs (principal); F17.210 Nicotine dependence, cigarettes, uncomplicated
CPT/HCPCS: 71271; G0296

== ENCOUNTER → 2022-10-02 08:10 | Outpatient (BNVA) | payer OTHER, SELFPAY | PROVIDERS: PCP Student in an Organized Health Care Education/Training Program; Visit Provider Internal Medicine | DX: J44.9 Chronic obstructive pulmonary disease, unspecified (principal); F17.210 Nicotine dependence, cigarettes, uncomplicated | CPT/HCPCS: 99212 ==

== ENCOUNTER 2023-01-03 13:53 | Outpatient (REF) | payer OTHER, SELFPAY ==
--- NOTE | ~2023-01-03 | XR_ITS ---
EXAMINATION: XR SHOULDER, LEFT CLINICAL INFORMATION: Pain COMPARISON: None available. TECHNIQUE: 5 views of the left shoulder. FINDINGS: No acute visible fracture or dislocation. Decreased acromiohumeral interval suggesting rotator cuff pathology. Degenerative arthropathy of the glenohumeral and acromioclavicular joint. Joint spaces and alignment are otherwise maintained. Soft tissues are unremarkable. Visualized portions of the left chest are unremarkable. XR/XR shoulder LT min 2V IMPRESSION: 1. No acute visible fracture or dislocation. 2. Decreased acromiohumeral interval suggesting rotator cuff pathology.
== END 2023-01-03 13:54 | disposition home or self-care (01) ==
LOC: HO.HHCX 13:53
PROVIDERS: Visit Provider Registered Nurse
DX: M25.512 Pain in left shoulder (principal); G89.29 Other chronic pain
CPT/HCPCS: 73030

== ENCOUNTER 2023-01-17 20:22 | Emergency (ER) | payer OTHER, SELFPAY ==
[2023-01-17 20:53] VITALS: BP 119/70; PULSE 56; RESP 18; TEMP 36.6; O2SAT 97; BMI 22.8
[2023-01-17 22:19] VITALS: BP 140/78; PULSE 60; RESP 20; TEMP 36.6; O2SAT 98
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
== END 2023-01-18 00:45 | disposition home or self-care (01) ==
PROVIDERS: Emergency Provider Emergency Medicine; PCP Student in an Organized Health Care Education/Training Program
DX: R11.2 Nausea with vomiting, unspecified (principal); G47.30 Sleep apnea, unspecified; I10 Essential (primary) hypertension; E78.00 Pure hypercholesterolemia, unspecified; F17.210 Nicotine dependence, cigarettes, uncomplicated; F12.90 Cannabis use, unspecified, uncomplicated; Z79.899 Other long term (current) drug therapy
CPT/HCPCS: 36415; 71046; 80053; 85025; 99283; 99284

== ENCOUNTER 2023-02-13 08:12 | Outpatient (REF) | payer OTHER, SELFPAY ==
[2023-02-13 11:20] LABS: Hematocrit 40.5 % (42.0-52.0); Hemoglobin 14.1 g/dl (14.0-18.0); Mean Corpuscular HGB Conc 34.8 g/dl (31.0-36.0); Mean Corpuscular Hemoglobin 32.6 pg (27.0-33.0); Mean Corpuscular Volume 93.5 fL (80.0-98.0); Platelet Count 193 X10*3/uL (160-400); Red Blood Count 4.33 X10*6/uL (4.60-5.80); Red Cell Distribution Width 11.9 % (11.0-16.0); White Blood Count 8.2 X10*3/uL (4.8-10.8)
[2023-02-13 11:30] LABS: Estimated Average Glucose 100 mg/dL; Hemoglobin A1c % 5.1 % (<6.0)
[2023-02-13 11:43] LABS: Alanine Aminotransferase 29 U/L (0-40); Albumin Level 4.5 g/dL (3.5-5.0); Alkaline Phosphatase 75 U/L (39-117); Anion Gap 11 (12-20); Aspartate Amino Transferase 35 U/L (5-37); Bilirubin Total 0.5 mg/dL (0.0-1.0); Blood Urea Nitrogen 18 mg/dL (9-16); Calcium 9.7 mg/dL (8.4-10.2); Carbon Dioxide 26 mmol/L (22-29); Chloride 103 mmol/L (96-108); Cholesterol 174 mg/dL (<200); Estimated Glomerular Filt Rate > 60; Glucose Random 68 mg/dL (60-115); HDL Cholesterol 63 mg/dL (>40); LDL Cholesterol Calculated 91 mg/dL (<100); Potassium 4.1 mmol/L (3.3-5.1); Sodium 136 mmol/L (135-145); Total Protein 7.7 g/dL (6.5-8.0); Triglycerides 100 mg/dL (<150)
[2023-02-13 11:55] LABS: HBc Num1 0.07 S/CO (0.00-0.79); HIV AB/AG Nonreactive (Nonreactive); HIV Num 1 0.05 S/CO (0.00-0.99); Hepatitis B Core Antibody Nonreactive (Nonreactive); ~HepC Num1 0.08 S/CO (0.00-0.79); ~Hepatitis B Surface Antibody REACTIVE (Nonreactive); ~Hepatitis C Antibody Nonreactive (Nonreactive)
[2023-02-13 12:02] LABS: Syphilis Screen Nonreactive (Nonreactive)
[2023-02-13 12:05] LABS: Prostate Specific Antigen 0.31 ng/mL (<0.05-4.0); TSH reflex Free T4 0.43 uIU/mL (0.32-4.0); Vitamin B12 323 pg/mL (200-900)
[2023-02-13 12:34] LABS: Creatinine Urine 53.89 mg/dL; Microalbum/Creatinine Ratio Ur 11.1 ug/mg cr (<30)
[2023-02-13 16:52] LABS: CT PCR NOT DETECTED (Not Detect.); NG PCR NOT DETECTED (Not Detect.)
[2023-02-18 01:29] LABS: VITAMIN D (1,25 OH) D3 23 pg/mL; Vit D (1,25-Dihydroxy) Total 23 pg/mL (18-72); Vitamin D (1,25 OH) D2 <8 pg/mL
== END 2023-02-13 08:13 | disposition home or self-care (01) ==
LOC: HO.HHCL 08:12
PROVIDERS: Visit Provider Student in an Organized Health Care Education/Training Program
DX: Z00.00 Encounter for general adult medical examination without abnormal findings (principal); Z11.3 Encounter for screening for infections with a predominantly sexual mode of transmission
CPT/HCPCS: 0353U; 36415; 80053; 80061; 82043; 82570; 82607; 82652; 82746; 83036; 84153; 84443; 85027; 86704; 86706; 86780; 86803; 87389

== ENCOUNTER 2023-03-24 09:15 | Outpatient (AMB) | payer OTHER, SELFPAY ==
[2023-03-24 09:35] VITALS: BP 118/72; PULSE 57; O2SAT 100; BMI 22.7
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
== END 2023-03-24 10:03 | disposition home or self-care (01) ==
PROVIDERS: PCP Student in an Organized Health Care Education/Training Program; Visit Provider Internal Medicine
DX: J44.9 Chronic obstructive pulmonary disease, unspecified (principal); F17.210 Nicotine dependence, cigarettes, uncomplicated; G47.33 Obstructive sleep apnea (adult) (pediatric)
CPT/HCPCS: 99213

== ENCOUNTER → 2023-03-24 09:15 | Outpatient (BNVA) | payer OTHER, SELFPAY | PROVIDERS: PCP Student in an Organized Health Care Education/Training Program; Visit Provider Internal Medicine | DX: G47.33 Obstructive sleep apnea (adult) (pediatric) (principal); J44.9 Chronic obstructive pulmonary disease, unspecified; F17.210 Nicotine dependence, cigarettes, uncomplicated | CPT/HCPCS: 99212 ==

== ENCOUNTER → 2023-05-14 08:37 | Outpatient (REF) | payer MEDICAID, SELFPAY | LOC: HO.SL 08:37 | PROVIDERS: PCP Student in an Organized Health Care Education/Training Program; Visit Provider Internal Medicine | DX: G47.33 Obstructive sleep apnea (adult) (pediatric) (principal) | CPT/HCPCS: 95806 ==

== ENCOUNTER → 2023-05-14 08:48 | Outpatient (BNV) | payer MEDICAID, SELFPAY | PROVIDERS: PCP Student in an Organized Health Care Education/Training Program; Visit Provider Internal Medicine | DX: R06.83 Snoring (principal) | CPT/HCPCS: 95806 ==

== ENCOUNTER 2023-05-28 09:43 | Outpatient (AMB) | payer MEDICAID, SELFPAY ==
[2023-05-28 09:58] VITALS: BP 112/62; PULSE 60; O2SAT 99; BMI 22.0
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
== END 2023-05-28 10:38 | disposition home or self-care (01) ==
PROVIDERS: PCP Student in an Organized Health Care Education/Training Program; Referring Provider Student in an Organized Health Care Education/Training Program; Visit Provider Internal Medicine
DX: F17.210 Nicotine dependence, cigarettes, uncomplicated (principal); J44.9 Chronic obstructive pulmonary disease, unspecified; G47.9 Sleep disorder, unspecified
CPT/HCPCS: 99213

== ENCOUNTER → 2023-05-28 09:43 | Outpatient (BNVA) | payer MEDICAID, SELFPAY | PROVIDERS: PCP Student in an Organized Health Care Education/Training Program; Visit Provider Internal Medicine | DX: J44.9 Chronic obstructive pulmonary disease, unspecified (principal); G47.9 Sleep disorder, unspecified; F17.210 Nicotine dependence, cigarettes, uncomplicated | CPT/HCPCS: 99212 ==

== ENCOUNTER 2023-06-24 07:52 | Outpatient (AMB) | payer MEDICAID, SELFPAY ==
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
[2023-06-24 08:18] VITALS: BP 118/65; PULSE 66; BMI 22.5
== END 2023-06-24 09:44 | disposition home or self-care (01) ==
PROVIDERS: PCP Student in an Organized Health Care Education/Training Program; Visit Provider Physician Assistant
DX: J44.9 Chronic obstructive pulmonary disease, unspecified (principal); R11.0 Nausea; K21.9 Gastro-esophageal reflux disease without esophagitis; Z12.11 Encounter for screening for malignant neoplasm of colon; K64.9 Unspecified hemorrhoids
CPT/HCPCS: 99203

== ENCOUNTER → 2023-06-24 07:52 | Outpatient (BNVA) | payer MEDICAID, SELFPAY | PROVIDERS: PCP Student in an Organized Health Care Education/Training Program; Visit Provider Physician Assistant | DX: Z12.11 Encounter for screening for malignant neoplasm of colon (principal); K21.9 Gastro-esophageal reflux disease without esophagitis; K64.9 Unspecified hemorrhoids; R11.0 Nausea; J44.9 Chronic obstructive pulmonary disease, unspecified | CPT/HCPCS: 99212 ==

== ENCOUNTER 2023-07-31 09:27 | Outpatient (REF) | payer MEDICAID, SELFPAY ==
--- NOTE | ~2023-07-31 | XR_ITS ---
EXAMINATION: XR SHOULDER, LEFT CLINICAL INFORMATION: Pain. COMPARISON: Radiographs dated 01/03/2023. TECHNIQUE: AP external rotation, Grashey, scapular Y, and axillary views of the left shoulder. FINDINGS: There is bony demineralization. The glenohumeral joint is intact. The acromioclavicular and coracoclavicular intervals are normal. There is mild osteoarthritic change of the acromioclavicular and coracoclavicular intervals. There is some narrowing of the rotator cuff interval, and there is cortical irregularity of the greater tuberosity of the proximal left humerus. No fracture or dislocation is seen. There is no focal soft tissue calcification or foreign body. No left pneumothorax is seen. XR/XR shoulder LT min 2V IMPRESSION: 1. There is mild osteoarthritic change of the left glenohumeral and acromioclavicular joints. 2. Findings suggest left rotator cuff impingement, without fay calcific tendinitis noted.
== END 2023-07-31 09:28 | disposition home or self-care (01) ==
LOC: HO.XRAY 09:27
PROVIDERS: PCP Student in an Organized Health Care Education/Training Program; Visit Provider Registered Nurse Emergency
DX: M25.512 Pain in left shoulder (principal)
CPT/HCPCS: 73030; 99212

== ENCOUNTER 2023-07-31 09:27 | Outpatient (AMB) | payer MEDICAID, SELFPAY ==
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
[2023-07-31 09:35] VITALS: BP 128/79; PULSE 65; RESP 18; O2SAT 97; BMI 22.7
== END 2023-07-31 09:42 | disposition home or self-care (01) ==
PROVIDERS: PCP Student in an Organized Health Care Education/Training Program; Visit Provider Registered Nurse Emergency
DX: M25.512 Pain in left shoulder (principal)
CPT/HCPCS: 99213

== ENCOUNTER 2023-08-19 06:07 | Outpatient (REF) | payer MEDICAID, SELFPAY ==
--- NOTE | ~2023-08-19 | FL_ITS ---
EXAMINATION: XR FLUOROSCOPY WITH IMAGES CLINICAL INFORMATION: Left shoulder pain. COMPARISON: None available. TECHNIQUE: Fluoroscopy Supervised By: Dr. Lawrence Basilio. Fluoroscopy Time: 0.3 minutes. Cumulative Dose: 1.19 mGy. DAP: 0.0206 Gycm2. Images: 3. FINDINGS: Intraoperative fluoroscopy and spot films were performed during a procedure in the OR. Images demonstrate a spinal needle overlying the left shoulder joint with contrast injected. Please see Dr. Lawrence Basilio report for complete details. FL/FL guidance in treatment room IMPRESSION: Intraoperative fluoroscopy and spot films were obtained. Please see Dr. Lawrence Basilio's report for complete details.
== END 2023-08-19 06:08 | disposition home or self-care (01) ==
LOC: CF 06:07
PROVIDERS: Visit Provider Anesthesiology
DX: M25.512 Pain in left shoulder (principal)
CPT/HCPCS: 20610; J2795; J3301; Q9967

== ENCOUNTER 2023-08-19 07:48 | Outpatient (AMB) | payer MEDICAID, SELFPAY ==
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
[2023-08-19 08:14] VITALS: BP 140/80; PULSE 70; RESP 18; O2SAT 98; BMI 22.7
[2023-08-19 08:15] VITALS: BP 142/78; PULSE 78; RESP 18; O2SAT 96
== END 2023-08-19 08:10 | disposition home or self-care (01) ==
LOC: HO.PMCPRC 07:48
PROVIDERS: PCP Student in an Organized Health Care Education/Training Program; Referring Provider Student in an Organized Health Care Education/Training Program; Visit Provider Anesthesiology
DX: M25.512 Pain in left shoulder (principal)
CPT/HCPCS: 20610; 77002

== ENCOUNTER 2023-09-19 08:38 | Outpatient (AMB) | payer MEDICAID, SELFPAY ==
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
[2023-09-19 08:50] VITALS: BP 138/81; PULSE 64; RESP 18; O2SAT 99; BMI 22.7
== END 2023-09-19 08:58 | disposition home or self-care (01) ==
PROVIDERS: PCP Student in an Organized Health Care Education/Training Program; Visit Provider Registered Nurse Emergency
DX: I83.819 Varicose veins of unspecified lower extremity with pain (principal); M25.512 Pain in left shoulder
CPT/HCPCS: 99213

== ENCOUNTER → 2023-09-19 08:38 | Outpatient (BNVA) | payer MEDICAID, SELFPAY | PROVIDERS: PCP Student in an Organized Health Care Education/Training Program; Visit Provider Registered Nurse Emergency | DX: I83.819 Varicose veins of unspecified lower extremity with pain (principal); M25.512 Pain in left shoulder | CPT/HCPCS: 99212 ==

== ENCOUNTER 2023-11-13 10:06 | Outpatient (AMB) | payer MEDICAID, SELFPAY ==
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
== END 2023-11-13 10:44 | disposition home or self-care (01) ==
PROVIDERS: PCP Student in an Organized Health Care Education/Training Program; Visit Provider Surgery Vascular Surgery
DX: I83.12 Varicose veins of left lower extremity with inflammation (principal)
CPT/HCPCS: 99204

== ENCOUNTER → 2023-11-13 10:06 | Outpatient (BNVA) | payer MEDICAID, SELFPAY | PROVIDERS: PCP Student in an Organized Health Care Education/Training Program; Visit Provider Surgery Vascular Surgery | DX: I83.12 Varicose veins of left lower extremity with inflammation (principal) | CPT/HCPCS: 99202 ==

== ENCOUNTER 2023-11-26 09:36 | Outpatient (AMB) | payer MEDICAID, SELFPAY ==
[2023-11-26 09:53] VITALS: BP 122/78; PULSE 68; O2SAT 96; BMI 23.1
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
== END 2023-11-26 10:18 | disposition home or self-care (01) ==
PROVIDERS: PCP Student in an Organized Health Care Education/Training Program; Visit Provider Internal Medicine
DX: J44.9 Chronic obstructive pulmonary disease, unspecified (principal); F17.210 Nicotine dependence, cigarettes, uncomplicated; G47.9 Sleep disorder, unspecified
CPT/HCPCS: 99213

== ENCOUNTER → 2023-11-26 09:36 | Outpatient (BNVA) | payer MEDICAID, SELFPAY | PROVIDERS: PCP Student in an Organized Health Care Education/Training Program; Visit Provider Internal Medicine | DX: J44.9 Chronic obstructive pulmonary disease, unspecified (principal); G47.9 Sleep disorder, unspecified; F17.210 Nicotine dependence, cigarettes, uncomplicated | CPT/HCPCS: 99212 ==

== ENCOUNTER 2023-12-29 10:24 | Emergency (ER) | payer MEDICAID, SELFPAY ==
--- NOTE | ~2023-12-29 | XR_ITS ---
EXAMINATION: XR CHEST CLINICAL INFORMATION: Shortness of breath COMPARISON: 01/17/2023 TECHNIQUE: 2 views of the chest were obtained. FINDINGS: No significant abnormality is noted involving the heart, lungs, mediastinum, bony thorax or soft tissues. XR/XR chest 2V IMPRESSION: Unremarkable examination. Electronically signed by: Jesus Gilman MD 12/29/2023 12:12 PM EDT RP
[2023-12-29 10:30] VITALS: BP 106/82; PULSE 71; RESP 20; TEMP 37.2; O2SAT 97; BMI 24.2
[2023-12-29 11:14] LABS: Basophils Absolute Auto 0.1 X10*3/uL (0.0-0.2); Basophils Percent Auto 0.5 % (0-2); Eosinophils Absolute Auto 0.2 X10*3/uL (0.0-0.4); Eosinophils Percent Auto 1.6 % (0-4); Hemoglobin 14.6 g/dl (14.0-18.0); Imm Gran Abs Auto 0.04 X10*3/uL (0.00-0.03); Imm Gran Pct Auto 0.3 % (0.0-0.4); Lymphocytes Absolute Auto 2.2 X10*3/uL (1.2-4.9); Lymphocytes Percent Auto 18.4 % (20-40); MANUAL DIFF FLAG NO; Mean Corpuscular HGB Conc 36.5 g/dl (31.0-36.0); Mean Corpuscular Hemoglobin 32.3 pg (27.0-33.0); Mean Corpuscular Volume 88.5 fL (80.0-98.0); Mean Platelet Volume 9.9 fL (9.4-12.4); Monocytes Absolute Auto 1.1 X10*3/uL (0.1-1.2); Monocytes Percent Auto 9.5 % (2-11); Neutrophils Absolute Auto 8.1 x10*3/uL (2.0-8.3); Neutrophils Percent Auto 69.7 % (45-73); Platelet Count 214 X10*3/uL (160-400); Red Blood Count 4.52 X10*6/uL (4.60-5.80); Red Cell Distribution Width 11.6 % (11.0-16.0); White Blood Count 11.7 X10*3/uL (4.8-10.8)
[2023-12-29 11:29] LABS: Alanine Aminotransferase 17 U/L (0-40); Albumin Level 4.4 g/dL (3.5-5.0); Alkaline Phosphatase 75 U/L (39-117); Anion Gap 12 (12-20); Aspartate Amino Transferase 21 U/L (5-37); Bilirubin Total 0.7 mg/dL (0.0-1.0); Blood Urea Nitrogen 13 mg/dL (9-16); COVID-19 Test Negative (Negative); Calcium 10.4 mg/dL (8.4-10.2); Carbon Dioxide 24 mmol/L (22-29); Chloride 103 mmol/L (96-108); Creatinine Clr Calc Pharmacy 69.3; Estimated Glomerular Filt Rate > 60; Glucose Random 91 mg/dL (60-115); IDNOW Serial# 152EDE1D; Magnesium 1.8 mg/dL (1.6-2.6); Potassium 3.4 mmol/L (3.3-5.1); Sodium 136 mmol/L (135-145); Total Protein 7.5 g/dL (6.5-8.0)
[2023-12-29 12:00] VITALS: BP 109/71; PULSE 65; RESP 18; TEMP 36.7; O2SAT 97
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
[2023-12-29] MEDS: predniSONE 20 MG TABLET 40 MG PO (13:48)
[2023-12-29] MEDS: Albuterol Sulfate 5 MG, Albuterol/Iprat 2.5/0.5MG 3 ML 3 ML INHALE (14:01)
[2023-12-29 14:05] VITALS: PULSE 57; RESP 17; O2SAT 100
[2023-12-29 14:51] VITALS: BP 109/71; PULSE 57; RESP 17; TEMP 37.2; O2SAT 95
== END 2023-12-29 14:57 | disposition home or self-care (01) ==
PROVIDERS: Emergency Provider Emergency Medicine; PCP Student in an Organized Health Care Education/Training Program
DX: J40 Bronchitis, not specified as acute or chronic (principal); R06.02 Shortness of breath; R05.9 Cough, unspecified; R50.9 Fever, unspecified; Z79.899 Other long term (current) drug therapy; Z11.52 Encounter for screening for COVID-19
CPT/HCPCS: 36415; 71046; 80053; 83735; 85025; 87635; 94640; 99284; 99285

== ENCOUNTER 2024-01-27 11:38 | Outpatient (REF) | payer MEDICAID, SELFPAY ==
--- NOTE | ~2024-01-27 | XR_ITS ---
EXAMINATION: XR FOOT, RIGHT CLINICAL INFORMATION: Splinter of right heel splinter right heel COMPARISON: None available. TECHNIQUE: AP, lateral, and oblique views of the right foot. FINDINGS: The bones are intact. No fracture. Alignment is anatomic. Joint spaces are maintained. There is soft tissue swelling in the plantar aspect of the calcaneus in the area of concern indicated by the patient. No radiopaque foreign body or gas is seen in this area. A splinter may be better visualized by ultrasound. There is an Achilles enthesophyte with several calcifications seen at the insertion of the Achilles tendon. XR/XR foot RT min 3V IMPRESSION: 1. No bony abnormality. 2. No radiopaque foreign body or gas is seen in the area of concern. A splinter may be better visualized by ultrasound. Electronically signed by: Annetta Barton MD 01/27/2024 03:08 PM EDT
== END 2024-01-27 11:39 | disposition home or self-care (01) ==
LOC: HO.HHCX 11:38
PROVIDERS: Visit Provider Internal Medicine
DX: S90.851A Superficial foreign body, right foot, initial encounter (principal)
CPT/HCPCS: 73630

== ENCOUNTER 2024-01-28 10:09 | Emergency (ER) | payer MEDICAID, SELFPAY ==
--- NOTE | ~2024-01-28 | XR_ITS ---
EXAMINATION: XR FOOT, RIGHT CLINICAL INFORMATION: Evaluation for foreign body COMPARISON: 01/27/2024 TECHNIQUE: AP, lateral, and oblique views of the right foot. FINDINGS: No fracture, dislocation or destructive process or radiopaque foreign body. Mild soft tissue swelling along the undersurface of the heel as was seen on yesterday's exam. Mild enthesopathy changes along the posterior calcaneus noted. XR/XR foot RT 2V IMPRESSION: No foreign body seen. Electronically signed by: Bradford Ochoa MD 01/28/2024 01:54 PM EDT
[2024-01-28 10:13] VITALS: BP 137/84; PULSE 68; RESP 16; TEMP 36.1; O2SAT 99; BMI 24.2
[2024-01-28 15:18] VITALS: BP 132/76; PULSE 57; RESP 16; TEMP 36.3; O2SAT 97
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
[2024-01-28] MEDS: Doxycycline Monohydrate 100 MG CAPSULE PO (17:15)
[2024-01-28] MEDS: cephALEXin 500 MG CAPSULE PO (17:15)
[2024-01-28 17:16] VITALS: BP 132/76; PULSE 57; RESP 16; TEMP 36.3; O2SAT 97
== END 2024-01-28 17:17 | disposition home or self-care (01) ==
PROVIDERS: Emergency Provider Emergency Medicine; PCP Student in an Organized Health Care Education/Training Program
DX: M79.5 Residual foreign body in soft tissue (principal); Z18.33 Retained wood fragments; I10 Essential (primary) hypertension; E78.5 Hyperlipidemia, unspecified; J44.9 Chronic obstructive pulmonary disease, unspecified
CPT/HCPCS: 73620; 99283; 99284

== ENCOUNTER 2024-03-03 09:41 | Emergency (ER) | payer MEDICAID, SELFPAY ==
--- NOTE | ~2024-03-03 | XR_ITS ---
EXAMINATION: XR FINGER, RIGHT CLINICAL INFORMATION: FB thumb. COMPARISON: None available. TECHNIQUE: PA view of the right hand as well as oblique and lateral views of the right thumb. FINDINGS: No radiopaque foreign body. No abnormal soft tissue calcification. Mild volar thumb soft tissue swelling. No acute fracture or dislocation. No concerning lytic or blastic osseous lesion. Mild joint space narrowing with small marginal osteophytes scattered throughout the metacarpophalangeal and interphalangeal joints. No periarticular osseous erosion or osteopenia. XR/XR finger RT min 2V IMPRESSION: 1. No radiopaque foreign body. Mild volar thumb soft tissue swelling. 2. Mild degenerative arthritis scattered throughout the metacarpophalangeal and interphalangeal joints. Electronically signed by: Kareem Fuentes MD 03/03/2024 11:40 AM [facility]
[2024-03-03 10:01] VITALS: BP 132/76; PULSE 65; RESP 18; TEMP 36.3; O2SAT 98; BMI 23.3
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
[2024-03-03] MEDS: Bacitracin Oint 0.9 GM PACKET 1 APPL TOPICAL (13:16)
[2024-03-03 13:19] VITALS: BP 103/55; PULSE 57; RESP 16; TEMP 36.4; O2SAT 97
[2024-03-03 13:30] VITALS: BP 103/55; PULSE 57; RESP 16; TEMP 36.4; O2SAT 97
== END 2024-03-03 13:30 | disposition home or self-care (01) ==
PROVIDERS: Emergency Provider Emergency Medicine; PCP Student in an Organized Health Care Education/Training Program
DX: S61.031A Puncture wound without foreign body of right thumb without damage to nail, initial encounter (principal); W45.8XXA Other foreign body or object entering through skin, initial encounter; M79.644 Pain in right finger(s); Y93.H2 Activity, gardening and landscaping; Y92.038 Other place in apartment as the place of occurrence of the external cause; Y99.9 Unspecified external cause status
CPT/HCPCS: 73140; 99283; 99284

== ENCOUNTER → 2024-04-22 23:27 | Outpatient (BNV) | payer MEDICAID, SELFPAY | PROVIDERS: Emergency Provider Internal Medicine; PCP Student in an Organized Health Care Education/Training Program; Visit Provider Radiology Diagnostic Radiology | DX: K56.41 Fecal impaction (principal) | CPT/HCPCS: 74018 ==

== ENCOUNTER 2024-08-17 09:26 | Outpatient (REF) | payer MEDICAID, SELFPAY ==
--- OUTSIDE RECORDS SUMMARY | 2024-08-17 10:21 | XMS_ITS | Encounter Summary ---
Author Organization [employer] Address [address] [facility] [address] [place] [address] Care Team Providers Care Slat Basket Top Maker Name Role Phone Hazel Hu MD Primary Care Pro vider Reason for Visit * Reason Onset Date Comments Appointment Request 07/09/2024 Encounter Details Date Type Department Care Team ([facility] Contact Info) Description 07/09/2024 Telephone [facility] [address] [place] [address] Hazel Hu MD [address] [place] [address] Appointment Request Social History Tobacco Use Types Packs/Day Years Used Date Smoking Tobacco: Every Day Cigarettes 1.5 53.3 Started: 1969 Passive Smoke Exposure: Never Smokeless Tobacco: Current Comments:Started at his 12 y of age until now -smokes 1 PQT a day but before 2PQT a day ---smoking for 51 years ---PQT a day calc 76.5 a year Alcohol Use Standard Drinks/Week Comments Yes 4 (1 standard drink = 0.6 oz pur e alcohol) social Depression Answer Date Recorded Patient Health Questionnaire-9 Score 3 02/12/2023 Patient Health Questionnaire-9 Score 3 02/12/2023 Last PHQ-9: Questionnaire Data Not on file 1 04/14/2022 Housing Stability Answer Date Recorded What is your housing situation today? I have darrell rizo 10/28/[address] you li ve. Do you have problems with any of the following? None of the above 10/28/2023 Food Insecurity Answer Date Recorded Within the past 12 months, y ou worried that your food would run out before you got money to buy more: Never True 10/28/2023 Within the past 12 months,th e food you bought just didn't last and you didn't have enough money to get more: Never True Transportation Answer Date Recorded In the past 12 months, has l ack of transportation kept you from medical appts, meetings, work or from getting things needed for daily living? No 10/28/2023 Utilities Answer Date Recorded In the past 12 months, has t he electric, gas, oil or water company threatened to shut off services in your home? No 10/28/2023 Depression Answer Date Recorded Patient Health Questionnaire-2 Score 0 02/12/2023 Internet Access Answer Date Recorded Internet Access Q1 Yes 12/15/2023 Internet Access Q2 Not on file 12/15/2023 Sex and Gender Information Value Date Recorded Sex Assigned at Male 02/11/2022 10:34 AM EDT Legal Sex Male 10:34 AM EDT Gender Identity Male 02/11/2022 10:34 AM EDT Sexual Orientation Straight 02/11/2022 10 :34 AM EDT documented as of this encounter Miscellaneous Notes * Telephone Encounter - Burt Tan - 07/09/2024 10:03 AM EDT Tc from pt requesting a callback to r/s appointment 07/09/2024 documented in this encounter Plan of Treatment Upcoming Encounters Date Type Department Care Team (Late st Contact Info) Description 08/27/2024 10:00 AM EDT Clinical Support [facility] [address] [place] [phone] Angeline Bond RN [address] [place] [address] 09/03/2024 1:00 PM EDT Office Visit [facility] [address] [place] [address] [phone] Hazel Hu MD [address] [place] [phone] documented as of this encounter Goals Goal Patient Goal Type Associated Problems Recent Progress Patient-Stated? Author Smoking cessation General No Dari Simmons, PharmD documented as of this encounter Visit Diagnoses Not on filedocumented in this encounter Additional Health Concerns Assessment Noted Time PHQ-9 Depression Total Score: 3 02/13/20 10:59 AM EDT documented as of this encounter Care Teams Slat Basket Top Maker Relationship Specialty Start Date End Date Hazel Hu MD [address] [place] [phone] PCP - General Internal Medicine 01/08/23 documented as of this encounter
--- OUTSIDE RECORDS SUMMARY | 2024-08-17 10:21 | XMS_ITS | Encounter Summary ---
Author Organization [employer] Address [address] [facility] 7t [place] [address] Care Team Providers Care Counter Attendant Name Role Phone Hazel Hu MD Primary Care Pro vider Reason for Visit * Reason Comments Med Refill Encounter Details Date Type Department Care Team (Late st Contact Info) Description 05/25/2024 Refill [facility] [address] [place] [address] Hazel Hu MD [address] [place] [address] Annual physical exam Social History Tobacco Use Types Packs/Day Years [...] AM EDT documented as of this encounter Plan of Treatment Upcoming Encounters Date Type Department Care Team (Late st Contact Info) Description 08/27/2024 10:00 AM EDT Clinical Support [facility] [address] [place] [phone] Angeline Bond RN [address] [place] [address] 09/03/2024 1:00 PM EDT Office Visit [facility] [address] [place] [phone] Hazel Hu MD [address] [place] [phone] documented as of this encounter Goals Goal Patient Goal Type Associated Problems Recent Progress Patient-Stated? Author Smoking cessation General Dari Bravo, SusieD documented as of this encounter Visit Diagnoses Diagnosis Annual physical exam Routine general medical examination at a health care facility documented in this encounter Additional Health Concerns Assessment Noted Time PHQ-9 Depression Total Score: 3 02/13/20 23 10:59 AM EDT documented as of this encounter Care Teams Counter Attendant Relationship Specialty Start Date End Date Hazel Hu MD [address] [place] [phone] PCP - General Internal Medicine 01/08/23 documented as of this encounter
--- OUTSIDE RECORDS SUMMARY | 2024-08-17 10:21 | XMS_ITS | Encounter Summary ---
Author Organization [employer] Address [address] [facility] [address] [place] [address] Care Team Providers Care Pet Groomer Name Role Phone Christa Banegas [facility] Primary Care Provider [phone] Hazel Hu MD Primary Care Pro vider Reason for Visit * Reason Onset Date Comments Appointment Request 06/18/2022 Encounter Details Date Type Department Care Team ([facility] Contact Info) Description 06/18/2022 Telephone [facility] [address] [place] [phone] Christa Banegas [address] Dept [place] [address] Appointment Request Social History Tobacco Use Types Packs/Day Years Used Date Smoking Tobacco: Every Day Cigarettes 1.5 53.3 Started: 1969 Smokeless Tobacco: Current Alcohol Use Standard Drinks/Week Comments Yes 4 (1 standard drink = 0.6 oz pur e alcohol) Sex and Gender Information Value Date Recorded Sex Assigned at Male 02/11/2022 10:34 AM EDT Legal Sex Male 10:34 AM EDT Gender Identity Male 02/11/2022 10:34 AM EDT Sexual Orientation Straight 02/11/2022 10 :34 AM EDT COVID-19 Exposure Response Date Recorded In the last 10 days, have yo u been in contact with someone who was confirmed or suspected to have Coronavirus/COVID-19? No / Unsure 06/13/2022 12:33 PM EST documented as of this encounter Miscellaneous Notes * Telephone Encounter - Juana Hinkle RN - 06/18/2022 12:48 PM EST TC to pt, no answer. L/M reminding he NCNS for SK[facility]PER initial appt on 04/25/22 and now is cancelling his [facility] initial appt 06/25/22. Left # for him to call and reschedule. Will update PCP. * Telephone Encounter - Randall Seguraos - 06/18/2022 12:36 PM EST Tc from pt requesting to r/s appt on 06-25-22 ( Initial [facility] TOP[facility] ) documented in this encounter Plan of Treatment Upcoming Encounters Date Type Department Care Team (Late st Contact Info) Description 08/27/2024 10:00 AM EDT Clinical Support [address] [phone] Angeline Bond RN [address] [place] [address] 09/03/2024 1:00 PM EDT Office Visit [address] [address] Hazel uH MD [address] [place] [phone] documented as of this encounter Visit Diagnoses Not on filedocumented in this encounter Care Teams Pet Groomer Relationship Specialty Start Date End Date Christa Banegas FNP PCP - General Family Medicine 12/06/21 01/07/23 Hazel Hu MD [address] [place] [phone] PCP - General Internal Medicine 01/08/23 documented as of this encounter
--- OUTSIDE RECORDS SUMMARY | 2024-08-17 10:21 | XMS_ITS | Encounter Summary ---
Author Organization [employer] Address [address] [facility] [address] [place] [address] Care Team Providers Care Petal Cutter Name Role Phone Hazel Hu MD Primary Care Pro vider Reason for Visit * Reason Onset Date Comments Med Refill 08/16/2024 Encounter Details Date Type Department Care Team ([facility] st Contact Info) Description 08/16/2024 Refill [facility] [address] [place], [place] [phone] Hazel Hu MD [address] [place] [address] Lumbago with sciatica, left side Social History Tobacco Use Types Packs/Day Years [...] encounter Miscellaneous Notes * Telephone Encounter - Marysol Ocasio RN - 08/16/2024 1:22 PM EDT Telephone call placed to pt regarding below message. Informed tylenol refill sent but in order to continue Rxing, he needs to get labs to recheck his liver. Informed labs ordered, can come to the labanytime at his convenience. Pt states will come tomorrow. Also informed I would like to book appt with PCP as he hasn't been seen in a while . Pt enthusiastically agreeable to this. Booked for followup with PCP 09/03. Pt agrees with plan and denied having any further questions or concerns at this time. Mailed appt reminder. Please advise pt that needs to get chem done to monitor I see when he was in the hospital in 04/2024 had elevated LFTS ,I am refilling this tylenol for 30 days but needs to recheck chem given tylenolcould affect liver if ongoing elevated LFTs,please advise to take no more than 1 tab BID if needed -I am ordering chem today Thanks * Telephone Encounter - Jennifer Osman LPN - 08/16/2024 11:18 AM EDT Last seen 07/26/24. documented in this encounter Plan of Treatment Upcoming Encounters Date Type Department Care Team (Late st Contact Info) Description 08/27/2024 10:00 AM EDT Clinical Support [facility] [address] [place] [phone] Angeline Bond, SALINA [address] [place] [address] 09/03/2024 1:00 PM EDT Office Visit [facility] [address] [place] [phone] Hazel Hu MD [address] [place] [address] documented as of this encounter Goals Goal Patient Goal Type Associated Problems Recent Progress Patient-Stated? Author Smoking cessation General Dari Bravo, SusieD documented as of this encounter Visit Diagnoses Diagnosis Lumbago with sciatica, left side documented in this encounter Additional Health Concerns Assessment Noted Time PHQ-9 Depression Total Score: 3 02/13/20 23 10:59 AM EDT documented as of this encounter Care Teams Petal Cutter Relationship Specialty Start Date End Date Hazel Hu MD [address] [place] [address] PCP - General Internal Medicine 01/08/23 documented as of this encounter
--- OUTSIDE RECORDS SUMMARY | 2024-08-17 10:21 | XMS_ITS | Encounter Summary ---
Author Organization [employer] Address [address] [facility] 7t [place] [address] Care Team Providers Care Senior Informatica Developer Name Role Phone Hazel Hu MD Primary Care Pro vider Reason for Visit * Reason Comments Med Refill Encounter Details Date Type Department Care Team (Late st Contact Info) Description 10/02/2023 Refill [facility] MEDICINE [address] [place] [address] Hazel Hu MD 230 [place] [address] Lumbago with sciatica, left side Social History [...] housing situation today? I have darrell rizo 01/27/[address] you li ve. Do you have problems with any of the following? None of the above 01/27/2023 Food Insecurity Answer Date Recorded Within the past 12 months, y ou worried that your food would run out before you got money to buy more: Never True 01/27/2023 Within the past 12 months,th e food you bought just didn't last and you didn't have enough money to get more: Never True Transportation Answer Date Recorded In the past 12 months, has l ack of transportation kept you from medical appts, meetings, work or from getting things needed for daily living? No 01/27/2023 Utilities Answer Date Recorded In the past 12 months, has t he electric, gas, oil or water company threatened to shut off services in your home? No 01/27/2023 Depression Answer Date Recorded Patient Health Questionnaire-2 Score 0 02/12/2023 Sex and Gender Information Value Date Recorded Sex Assigned at Male 02/11/2022 10:34 AM EDT Legal Sex Male 10:34 AM EDT Gender Identity Male 02/11/2022 10:34 AM EDT Sexual Orientation Straight 02/11/2022 10 :34 AM EDT documented as of this encounter Plan of Treatment Upcoming Encounters Date Type Department Care Team (Late st Contact Info) Description 08/27/2024 10:00 AM EDT Clinical Support [facility] MEDICINE [address] [place] [phone] Angeline Bond RN 505 [place] [address] 09/03/2024 1:00 PM EDT Office Visit [facility] MEDICINE [address] [place] [phone] Hazel Hu MD [address] [place] [phone] documented as of this encounter Goals Goal Patient Goal Type Associated Problems Recent Progress Patient-Stated? Author Smoking cessation General Dari Bravo, SusieD documented as of this encounter Visit Diagnoses Diagnosis Lumbago with sciatica, left side documented in this encounter Additional Health Concerns Assessment Noted Time PHQ-9 Depression Total Score: 3 02/13/20 10:59 AM EDT documented as of this encounter Care Teams Senior Informatica Developer Relationship Specialty Start Date End Date Hazel Hu MD [address] [place] [phone] PCP - General Internal Medicine 01/08/23 documented as of this encounter
--- OUTSIDE RECORDS SUMMARY | 2024-08-17 10:21 | XMS_ITS | Encounter Summary ---
Author Organization [employer] Address 75 [facility] 7t h Floor [address] Care Team Providers Care Pie Crimping Machine Operator Name Role Phone Hazel Hu MD Primary Care Pro vider Reason for Visit * Reason Comments Med Refill Encounter Details Date Type Department Care Team ([facility] st Contact Info) Description 06/04/2024 Refill [facility] MEDICINE [address] [place] [address] Hazel Hu MD 230 [place], [place] [phone] Social History Tobacco Use Types Packs/Day Years [...] Description 08/27/2024 10:00 AM EDT Clinical Support [facility] [address] [place] [phone] Angeline Bond RN 505 [place] [address] 09/03/2024 1:00 PM EDT Office Visit [facility] [address] [place] [phone] Hazel Hu MD [address] [place] [phone] documented as of this encounter Goals Goal Patient Goal Type Associated Problems Recent Progress Patient-Stated? Author Smoking cessation General No Dari Simmons, SusieD documented as of this encounter Visit Diagnoses Not on filedocumented in this encounter Additional Health Concerns Assessment Noted Time PHQ-9 Depression Total Score: 3 02/13/20 23 10:59 AM EDT documented as of this encounter Care Teams Pie Crimping Machine Operator Relationship Specialty Start Date End Date Hazel Hu MD [address] [place] [address] PCP - General Internal Medicine 01/08/23 documented as of this encounter
--- OUTSIDE RECORDS SUMMARY | 2024-08-17 10:21 | XMS_ITS | Encounter Summary ---
Author Organization [employer] Address 75 [facility] 7t [place] [address] Care Team Providers Care Soil Science Teacher Name Role Phone Hazel Hu MD Primary Care Pro vider Encounter Details Date Type Department Care Team (Late st Contact Info) Description 05/20/2024 Orders Only [facility]INE 230 [place], [place] [phone] Jaqueline Davis ANP 230 [place] [address] Social History Tobacco Use Types Packs/Day Years [...] Description 08/27/2024 10:00 AM EDT Clinical Support [facility] [address] [place] [phone] Angeline Bond, SALINA 505 [place] [address] 09/03/2024 1:00 PM EDT Office Visit [facility] [address] [place] [phone] Hazel Hu MD [address] [place] [phone] documented as of this encounter Goals Goal Patient Goal Type Associated Problems Recent Progress Patient-Stated? Author Smoking cessation General Dari Bravo, SusieD documented as of this encounter Visit Diagnoses Not on filedocumented in this encounter Additional Health Concerns Assessment Noted Time PHQ-9 Depression Total Score: 3 02/13/20 10:59 AM EDT documented as of this encounter Care Teams Soil Science Teacher Relationship Specialty Start Date End Date Hazel Hu MD [address] [place] [address] PCP - General Internal Medicine 01/08/23 documented as of this encounter
--- OUTSIDE RECORDS SUMMARY | 2024-08-17 10:21 | XMS_ITS | Encounter Summary ---
Author Organization [employer] Address 75 [facility] 7t [place] [address] Care Team Providers Care Finger Waver Name Role Phone Hazel Hu MD Primary Care Pro vider Encounter Details Date Type Department Care Team (Late st Contact Info) Description 08/16/2024 Orders Only [facility] MEDICINE 230 [place], [place] [phone] Hazel Hu MD 230 [place] [address] Transaminitis (Primary Dx) Social History Tobacco Use Types Packs/Day Years [...] your housing situation today? I have darrell darrius 10/28/[address] you li [...] Description 08/27/2024 10:00 AM EDT Clinical Support [facility] MEDICINE [address] [place] [phone] Angeline Bond RN 505 [place] [address] 09/03/2024 1:00 PM EDT Office Visit [facility] MEDICINE [address] [place] [phone] Hazel Hu MD [address] [place] [phone] Scheduled Orders Name Type Priority Associated Diagnoses Orde r Schedule Comprehensive Metabolic Panel Lab Routine Transaminitis Expected: 08/16/2024 (Approximate), Expires: 08/16/2025 documented as of this encounter Goals Goal Patient Goal Type Associated Problems Recent Progress Patient-Stated? Author Smoking cessation General Dari Bravo, Moustapha documented as of this encounter Visit Diagnoses Diagnosis Transaminitis- Primary Nonspecific elevation of levels of transaminase or lactic acid dehydrogenase (LDH) documented in this encounter Additional Health Concerns Assessment Noted Time PHQ-9 Depression Total Score: 3 02/13/20 10:59 AM EDT documented as of this encounter Care Teams Finger Waver Relationship Specialty Start Date End Date Hazel Hu MD [address] [place] [address] PCP - General Internal Medicine 01/08/23 documented as of this encounter
--- OUTSIDE RECORDS SUMMARY | 2024-08-17 10:21 | XMS_ITS | Encounter Summary ---
Author Organization [employer] Address 75 [facility] 7t [place] [address] Care Team Providers Care Taxi Servicer Name Role Phone Hazel Hu MD Primary Care Pro vider Reason for Visit * Reason Onset Date Comments Med Refill 01/14/2024 Encounter Details Date Type Department Care Team ([facility] st Contact Info) Description 01/14/2024 Telephone [facility] MEDICINE 230 [place] [address] Hazel Hu MD 230 [place] [address] Med Refill Social History Tobacco Use Types Packs/Day Years [...] encounter Miscellaneous Notes * Telephone Encounter - Kacie Hutchison MD - 01/14/2024 3:35 PM EDT Sent script * Telephone Encounter - Daya Hendrickson LPN - 01/14/2024 1:24 PM EDT PCP VAC.Please review request medication is not pended as last filled 11/26/22 * Telephone Encounter - Bceca Krause - 01/14/2024 1:16 PM EDT TC from pt requesting medication refill. Medications needing refill : sildenafil (Viagra) 50 MG tablet To be sent to: [facility] - [place], [place] - [address] documented in this encounter Plan of Treatment Upcoming Encounters Date Type Department Care Team (Late st Contact Info) Description 08/27/2024 10:00 AM EDT Clinical Support [facility] MEDICINE [address] [place] [phone] Angeline Bond, SALINA 505 [place] [address] 09/03/2024 1:00 PM EDT Office Visit [facility] [address] [place] [phone] Hazel Hu MD [address] [place] [address] documented as of this encounter Goals Goal Patient Goal Type Associated Problems Recent Progress Patient-Stated? Author Smoking cessation General Dari Bravo, PharmD documented as of this encounter Visit Diagnoses Not on filedocumented in this encounter Additional Health Concerns Assessment Noted Time PHQ-9 Depression Total Score: 3 02/13/20 10:59 AM EDT documented as of this encounter Care Teams Taxi Servicer Relationship Specialty Start Date End Date Hazel Hu MD [address] [place] [phone] PCP - General Internal Medicine 01/08/23 documented as of this encounter
--- OUTSIDE RECORDS SUMMARY | 2024-08-17 10:21 | XMS_ITS | Encounter Summary ---
Author Organization [employer] Address [address] [facility] 7t [place] [address] Care Team Providers Care Fabrication Lead Name Role Phone Hazel Hu MD Primary Care Pro vider Reason for Visit * Reason Onset Date Comments Med Refill 01/14/2024 Encounter Details Date Type Department Care Team ([facility] st Contact Info) Description 01/14/2024 Telephone [facility] MEDICINE [address] [place] [address] Hazel Hu MD 230 [place] [address] Med Refill Social History Tobacco Use Types [...] encounter Miscellaneous Notes * Telephone Encounter - Becca Krause - 01/14/2024 1:17 PM EDT TC from pt requesting medication refill. Medications needing refill : traMADol (Ultram) 50 MG tablet To be sent to: [facility] - [place], [place] - [address] [place] [address] documented in this encounter Plan of Treatment Upcoming Encounters Date Type Department Care Team ([facility] st Contact Info) Description 08/27/2024 10:00 AM EDT Clinical Support [facility] MEDICINE [address] [place] [phone] Angeline Bond RN 505 [place] [address] 09/03/2024 1:00 PM EDT Office Visit [facility] MEDICINE [address] [place] [phone] Hazel Hu MD 230 [place] [address] documented as of this encounter Goals Goal Patient Goal Type Associated Problems Recent Progress Patient-Stated? Author Smoking cessation General No Dari Simmons, SusieD documented as of this encounter Visit Diagnoses Not on filedocumented in this encounter Additional Health Concerns Assessment Noted Time PHQ-9 Depression Total Score: 3 02/13/20 10:59 AM EDT documented as of this encounter Care Teams Fabrication Lead Relationship Specialty Start Date End Date Hazel Hu MD [address] [place] [phone] PCP - General Internal Medicine 01/08/23 documented as of this encounter
--- OUTSIDE RECORDS SUMMARY | 2024-08-17 10:21 | XMS_ITS | Encounter Summary ---
Author Organization [employer] Address [address] [facility] 7t [place] [address] Care Team Providers Care Quill Machine Tender Name Role Phone Hazel Hu MD Primary Care Pro vider Encounter Details Date Type Department Care Team (Late st Contact Info) Description 01/14/2024 Orders Only [facility] MEDICINE 230 [place], [place] [phone] Kacie Hutchison MD 230 [place] [address] Social History Tobacco Use Types Packs/Day Years [...] Description 08/27/2024 10:00 AM EDT Clinical Support [facility] MEDICINE [address] [place] [phone] Angeline Bond RN 505 [place] [address] 09/03/2024 1:00 PM EDT Office Visit [facility] MED[facility] [address] [place] [address] Hazel Hu MD [address] [place] [phone] documented as of this encounter Goals Goal Patient Goal Type Associated Problems Recent Progress Patient-Stated? Author Smoking cessation General No Dari Simmons, Moustapha documented as of this encounter Visit Diagnoses Not on filedocumented in this encounter Additional Health Concerns Assessment Noted Time PHQ-9 Depression Total Score: 3 02/13/20 23 10:59 AM EDT documented as of this encounter Care Teams Quill Machine Tender Relationship Specialty Start Date End Date Hazel Hu MD [address] [place] [address] PCP - General Internal Medicine 01/08/23 documented as of this encounter
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
--- OUTSIDE RECORDS SUMMARY | 2024-08-17 10:21 | XMS_ITS | Encounter Summary ---
Author Organization [employer] Address [address] [facility] 7[address] [place] [address] Care Team Providers Care Heat Treating Operator Name Role Phone Hazel Hu MD Primary Care Pro vider Reason for Visit * Reason Comments Med Refill Encounter Details Date Type Department Care Team ([facility] st Contact Info) Description 05/25/2024 Refill [facility] [address] [place] [address] Hazel Hu MD [address] [place], [place] [phone] Annual physical exam Social History Tobacco Use [...] Description 08/27/2024 10:00 AM EDT Clinical Support [facility] [address] [place] [phone] Angeline Bond RN [address] [place] [address] 09/03/2024 1:00 PM EDT Office Visit [facility] [address] [place] [phone] Hazel Hu MD [address] [place] [phone] documented as of this encounter Goals Goal [...] documented as of this encounter Care Teams Heat Treating Operator Relationship Specialty Start Date End Date Hazel Hu MD [address] [place] [phone] PCP - General Internal Medicine 01/08/23 documented as of this encounter
--- OUTSIDE RECORDS SUMMARY | 2024-08-17 10:22 | XMS_ITS | Encounter Summary ---
Author Organization [employer] Address 75 [facility] 7t [place] [address] Care Team Providers Care Truck Driver Name Role Phone Hazel Hu MD Primary Care Pro vider Reason for Visit * Reason Comments Med Refill Encounter Details Date Type Department Care Team (Late st Contact Info) Description 07/27/2024 Refill [facility] [address] [place], [place] [phone] Kacie Hutchison MD [address] [place] [address] Lumbago with sciatica, left side Social History [...] Description 08/27/2024 10:00 AM EDT Clinical Support [facility] [address] [place] [phone] Angeline Bond RN [address] [place] [address] 09/03/2024 1:00 PM EDT Office Visit [facility] [address] [place] [phone] Hazel Hu MD [address] [place] [phone] documented as of this encounter Goals Goal Patient Goal Type Associated Problems Recent Progress Patient-Stated? Author Smoking cessation General No Dari Simmons, PharmD documented as of this encounter Visit Diagnoses Diagnosis Lumbago with sciatica, left side documented in this encounter Additional Health Concerns Assessment Noted Time PHQ-9 Depression Total Score: 3 02/13/20 23 10:59 AM EDT documented as of this encounter Care Teams Truck Driver Relationship Specialty Start Date End Date Hazel Hu MD [address] [place] [phone] PCP - General Internal Medicine 01/08/23 documented as of this encounter
--- OUTSIDE RECORDS SUMMARY | 2024-08-17 10:22 | XMS_ITS | Encounter Summary ---
Author Organization [employer] Address [address] [facility] 7t [place] [address] Care Team Providers Care Absorption Plant Operator Helper Name Role Phone Hazel Hu MD Primary Care Pro vider Reason for Visit * Reason Comments Med Refill Encounter Details Date Type Department Care Team ([facility] st Contact Info) Description 08/09/2024 Refill [facility] [address] [place], [place] [phone] Yahir Hickman MD [address] [place], [place] [phone] Social History Tobacco Use Types Packs/Day Years [...] Description 08/27/2024 10:00 AM EDT Clinical Support [facility] [address] [place] [phone] Angeline Bond RN [address] [place] [address] 09/03/2024 1:00 PM EDT Office Visit [facility] [address] [place] [phone] Hazel Hu MD [address] [place] [phone] documented as of this encounter Goals Goal Patient Goal Type Associated Problems Recent Progress Patient-Stated? Author Smoking cessation General No Dari Simmons, PharmD documented as of this encounter Visit Diagnoses Not on filedocumented in this encounter Additional Health Concerns Assessment Noted Time PHQ-9 Depression Total Score: 3 02/13/20 23 10:59 AM EDT documented as of this encounter Care Teams Absorption Plant Operator Helper Relationship Specialty Start Date End Date Hazel Hu MD [address] [place] [phone] PCP - General Internal Medicine 01/08/23 documented as of this encounter
[2024-08-17 14:45] LABS: Anion Gap 13 (12-20)
[2024-08-17 14:52] LABS: Alanine Aminotransferase 49 U/L (0-40); Albumin Level 4.6 g/dL (3.5-5.0); Aspartate Amino Transferase 65 U/L (5-37); Bilirubin Total 0.8 mg/dL (0.0-1.0); Blood Urea Nitrogen 14 mg/dL (9-16); Carbon Dioxide 31 mmol/L (22-29); Chloride 101 mmol/L (96-108); Cholesterol 182 mg/dL (<200); Estimated Glomerular Filt Rate > 60; Glucose Random 77 mg/dL (60-115); HDL Cholesterol 83 mg/dL (>40); LDL Cholesterol Calculated 83 mg/dL (<100); Potassium 4.1 mmol/L (3.3-5.1); Sodium 141 mmol/L (135-145); Total Protein 7.8 g/dL (6.5-8.0); Triglycerides 80 mg/dL (<150)
[2024-08-17 17:59] LABS: Alkaline Phosphatase 77 U/L (39-117)
== END 2024-08-17 09:27 | disposition home or self-care (01) ==
LOC: HO.HHCL 09:26
PROVIDERS: Visit Provider Student in an Organized Health Care Education/Training Program
DX: R74.01 Elevation of levels of liver transaminase levels (principal); E78.5 Hyperlipidemia, unspecified; Z00.00 Encounter for general adult medical examination without abnormal findings
CPT/HCPCS: 36415; 80053; 80061; 82306

== ENCOUNTER 2024-09-03 15:49 | Outpatient (REF) | payer MEDICAID, SELFPAY ==
--- NOTE | ~2024-09-03 | XR_ITS ---
EXAMINATION: XR CHEST CLINICAL INFORMATION: pt w worening cough COMPARISON: 12/29/2023. TECHNIQUE: 2 views of the chest were obtained. FINDINGS: The cardiac, hilar, and mediastinal contours are normal. The lungs are mildly hyperaerated, however clear bilaterally. There is no pneumothorax or pleural effusion. There is no focal osseous or soft tissue abnormality. Mild degenerative changes of the spine. XR/XR chest 2V IMPRESSION: No active pulmonary disease. Electronically signed by: Chu Haddad MD 09/03/2024 04:28 PM EDT
== END 2024-09-03 15:50 | disposition home or self-care (01) ==
LOC: HO.HHCX 15:49
PROVIDERS: Visit Provider Student in an Organized Health Care Education/Training Program
DX: R05.8 Other specified cough (principal)
CPT/HCPCS: 71046

== ENCOUNTER → 2024-09-03 15:50 | Outpatient (BNV) | payer MEDICAID, SELFPAY | PROVIDERS: Visit Provider Radiology Diagnostic Radiology | DX: J98.4 Other disorders of lung (principal) | CPT/HCPCS: 71046 ==

== ENCOUNTER 2024-11-01 13:52 | Outpatient (REF) | payer MEDICAID, SELFPAY ==
--- OUTSIDE RECORDS SUMMARY | 2024-11-01 14:43 | XMS_ITS | Encounter Summary ---
Author Organization [employer] Address [address] [facility] 7[address] [place] [address] Care Team Providers Care Hyperion Essbase Developer Name Role Phone Hazel Hu MD Primary Care Pro vider Leonora Michel RN Unavailable [phone] Nelida Serrato Unavailable Encounter Details Date Type Department Care Team (Latest Contact Info) Description 11/01/2024 Travel Social History Tobacco Use Types Packs/Day Years Used Date Smoking Tobacco: Every Day Cigarettes 1.5 53.6 Started: 1971 Passive Smoke Exposure: Never Smokeless [...] Answer Date Recorded Patient Health Questionnaire-9 Score 0 09/03/2024 Patient Health Questionnaire-9 Score 0 09/03/2024 Last PHQ-9: Questionnaire Data Not on file 0 09/03/2024 Housing Stability Answer Date Recorded What is your housing situation today? I have darrell rizo 11/01/[address] you li ve. Do you have problems with any of the following? None of the above 11/01/2024 Food Insecurity Answer Date Recorded Within the past 12 months, y ou worried that your food would run out before you got money to buy more: Never True 11/01/2024 Within the past 12 months,th e food you bought just didn't last and you didn't have enough money to get more: Never True Transportation Answer Date Recorded In the past 12 months, has l ack of transportation kept you from medical appts, meetings, work or from getting things needed for daily living? No 11/01/2024 Utilities Answer Date Recorded In the past 12 months, has t he electric, gas, oil or water company threatened to shut off services in your home? No 11/01/2024 Depression Answer Date Recorded Patient Health Questionnaire-2 Score 0 09/03/2024 Internet Access Answer Date Recorded Internet Access Q1 Yes 11/01/2024 Internet Access Q2 Not on file 11/01/2024 Sex and Gender Information Value Date Recorded Sex Assigned at Male 02/11/2022 10:34 AM EDT Legal Sex Male 10:34 AM EDT Gender Identity Male 02/11/2022 10:34 AM EDT Sexual Orientation Straight 02/11/2022 10 :34 AM EDT documented as of this encounter Plan of Treatment Upcoming Encounters Date Type Department Care Team (Late st Contact Info) Description 12/10/2024 9:30 AM EDT Clinical Support [facility] [address] [place] [address] Angeline Bond RN [address] [place] [address] documented as of this encounter Goals Goal Patient Goal Type Associated Problems Recent Progress Patient-Stated? Author Smoking cessation General No Dari Simmons, SusieD documented as of this encounter Visit Diagnoses Not on filedocumented in this encounter Additional Health Concerns Assessment Noted Time PHQ-9 Depression Total Score: 0 09/04/19 25 1:01 PM EDT documented as of this encounter Care Teams Hyperion Essbase Developer Relationship Specialty Start Date End Date Hazel Hu MD [address] [place] [address] PCP - General Internal Medicine 01/08/23 Leonora Michel RN [address] [place] [address] Registered Nurse Family Medicine 09/08/24 Nelida Serrato 09/08/24 documented as of this encounter
[2024-11-01 16:41] LABS: Alanine Aminotransferase 37 U/L (0-40); Albumin Level 4.8 g/dL (3.5-5.0); Alkaline Phosphatase 75 U/L (39-117); Anion Gap 13 (12-20); Aspartate Amino Transferase 47 U/L (5-37); Blood Urea Nitrogen 14 mg/dL (9-16); Calcium 9.7 mg/dL (8.4-10.2); Carbon Dioxide 27 mmol/L (22-29); Chloride 104 mmol/L (96-108); Estimated Glomerular Filt Rate > 60; Potassium 4.5 mmol/L (3.3-5.1); Sodium 139 mmol/L (135-145); Total Protein 7.6 g/dL (6.5-8.0)
== END 2024-11-01 13:53 | disposition home or self-care (01) ==
LOC: HO.HHCL 13:52
PROVIDERS: PCP Student in an Organized Health Care Education/Training Program; Visit Provider Student in an Organized Health Care Education/Training Program
DX: R74.01 Elevation of levels of liver transaminase levels (principal)
CPT/HCPCS: 36415; 80053

== ENCOUNTER 2024-11-02 09:10 | Outpatient (REF) | payer MEDICAID, SELFPAY ==
--- NOTE | ~2024-11-02 | US_ITS ---
CLINICAL HISTORY: pt w ongoing transaminitis to eval liver US abdomen complete Comparison: CR - XR KUB - 04/23/24 00:39 EST US/UT/SR - US RETROPERITONEUM LIMITED - 06/13/22 16:28 EST CR - XR KUB - 02/29/20 23:14 EST Findings: Visualized aspects of pancreas are unremarkable. The pancreatic duct in the visualized aspect is within normal limits and measures 0.2 cm. Pancreatic tail is obscured due to overlying bowel gas. The aorta and inferior vena cava are normal caliber. Increased echogenicity of the liver. Liver is 13.7 cm in length. There is a calcification in the liver. Vague geographic area of increased echogenicity in the right hepatic lobe measuring 5.8 x 3.8 cm is indeterminate on this current exam. CT or MRI liver mass protocol is recommended for further characterization. There is no intrahepatic bile duct dilatation. Common bile duct is normal in caliber measuring 0.4 cm. Gallbladder wall thickness is normal measuring 0.2 cm. Sonographic Sinclair's sign is negative. The main portal vein Demonstrates color Doppler. Right kidney is 10.9 cm in length. Cyst in the right mid kidney measuring 0.8 cm. Cyst in the right upper kidney measuring 1.2 cm. Left kidney measures 10.6 cm in length. Cyst in the left upper pole measuring 0.4 cm. Cyst in the left mid kidney measuring 0.9 cm. Spleen is normal measuring 0.9 cm. No ascites. IMPRESSION: 1. Evidence of diffuse hepatocellular process. 2. Vague geographic area of increased echogenicity in the right hepatic lobe measuring 5.8 x 3.8 cm is indeterminate on this current exam. CT or MRI liver mass protocol is recommended for further characterization. This document has been electronically signed by: Nathaniel Estevez DO on 11/03/2024 10:36:03
--- OUTSIDE RECORDS SUMMARY | 2024-11-02 09:41 | XMS_ITS | Encounter Summary ---
Author Organization [employer] Address [address] [facility] 7t [place] [address] Care Team Providers Care Control Clerk Auditing Name Role Phone Hazel Hu MD Primary Care Pro vider Leonora Michel RN Unavailable [phone] Nelida Serrato Unavailable Encounter Details Date [...] Description 12/10/2024 9:30 AM EDT Clinical Support [facility] [address] [place] [address] Angeline Bond RN [address] [place] [address] documented as of this encounter Goals Goal Patient Goal Type Associated Problems Recent Progress Patient-Stated? Author Smoking cessation General No Dari Simmons, SusieD documented as of this encounter Visit Diagnoses Not on filedocumented in this encounter Additional Health Concerns Assessment Noted Time PHQ-9 Depression Total Score: 0 09/04/19 25 1:01 PM EDT documented as of this encounter Care Teams Control Clerk Auditing Relationship Specialty Start Date End Date Hazel Hu MD [address] [place] [address] PCP - General Internal Medicine 01/08/23 Leonora Michel RN [address] [place] [address] Registered Nurse Family Medicine 09/08/24 Nelida Serrato 09/08/24 documented as of this encounter
== END 2024-11-02 09:11 | disposition home or self-care (01) ==
LOC: HO.US 09:10
PROVIDERS: PCP Student in an Organized Health Care Education/Training Program; Visit Provider Student in an Organized Health Care Education/Training Program
DX: R74.01 Elevation of levels of liver transaminase levels (principal)
CPT/HCPCS: 76700

== ENCOUNTER → 2024-11-02 09:12 | Outpatient (BNV) | payer MEDICAID, SELFPAY | PROVIDERS: PCP Student in an Organized Health Care Education/Training Program; Visit Provider Family Medicine | DX: K76.89 Other specified diseases of liver (principal) | CPT/HCPCS: 76700 ==

== ENCOUNTER 2024-12-06 12:48 | Outpatient (REF) | payer MEDICAID, SELFPAY ==
--- NOTE | ~2024-12-06 | CT_ITS ---
EXAMINATION: CT LOW-DOSE SCREENING CHEST WITHOUT CONTRAST CLINICAL INFORMATION: 64-year-old male, smoker, 51 pack years. Lung cancer screening. COMPARISON: 07/26/2022. TECHNIQUE: Multidetector volumetric CT imaging of the chest is performed on a Siemens SOMATOM Definition scanner without contrast using low dose technique. Additional 2D coronal and sagittal reformatted images and axial 3D maximum intensity projection (MIP) images are generated on the CT workstation. This CT examination was performed using dose optimization techniques as appropriate, variously including the following: *Automated exposure control *Adjustment of mA and/or kV according to patient size (this includes techniques or standardized protocols for targeted exams where dose is matched to indication/reason for exam; i.e. extremities or head) *Use of iterative reconstruction technique FINDINGS: PULMONARY NODULES: -There are a few tiny calcified granulomata present, unchanged. -3 mm groundglass nodule left upper lobe (series 5, image 46), stable. -There is no new or enlarging pulmonary nodule. LUNGS: -Lungs are symmetrically expanded and clear bilaterally. -No abnormal opacities or evidence of interstitial abnormality. -Mild thickening of the small airways diffusely, findings suggestive of chronic bronchitis. -Mild paraseptal emphysema present. -No effusion or pneumothorax. MEDIASTINUM: -Imaged thyroid is unremarkable. -No mediastinal adenopathy or mass. -The aorta is normal in caliber and course. -Main pulmonary artery is normal. -Cardiac size is normal. No pericardial effusion. -Central airways are patent. -Esophagus is normal. CORONARY ARTERY CALCIFICATION: Mild three-vessel coronary calcification. CHEST WALL/AXILLA: -No mass or abnormal lymph nodes. UPPER ABDOMEN: -Included portions of the solid organs in the upper abdomen unremarkable on noncontrast imaging. OSSEOUS STRUCTURES: -No suspicious focal findings. -Mild degenerative spinal changes. CT/CT lung screening IMPRESSION: 1. Stable left upper lobe 3 mm groundglass nodule, benign. No new or enlarging pulmonary nodules. 2. Mild paraseptal emphysema. No active lung disease. 3. Mild thickening of the small airways suggesting chronic bronchitis. ASSESSMENT: 1. Lung-RADS Category 2: Benign appearance or behavior of nodules. 2. Lung-RADS Category S: None. RECOMMENDATION: Continued routine annual low-dose CT lung screening in 1 year is recommended. An order for CT CHEST LOW DOSE CANCER SCREENING ([id number]) can be placed. Electronically signed by: Chu Haddad MD 12/06/2024 01:17 PM EDT
--- OUTSIDE RECORDS SUMMARY | 2024-12-06 13:55 | XMS_ITS | Encounter Summary ---
Author Organization [employer] Address [address] [facility] 7t [place] [address] Care Team Providers Care Roper Operator Name Role Phone Hazel Hu MD Primary Care Pro vider Leonora Michel RN Unavailable Nelida Serrato Unavailable Reason for Visit * Reason Onset Date Comments Appointment Request 07/09/2024 Encounter Details Date Type Department Care Team ([facility] st Contact Info) Description 07/09/2024 Telephone [facility] [address] [place] [address] Hazel Hu MD [address] [place] [address] Appointment Request Social History Tobacco Use Types [...] Description 12/10/2024 9:30 AM EDT Clinical Support [facility] [address] [place] [address] Angeline Bond, SALINA [address] [place], [place] [phone] documented as of this encounter Goals Goal Patient Goal Type Associated Problems Recent Progress Patient-Stated? Author Smoking cessation General No Dari Simmons, PharmD documented as of this encounter Visit Diagnoses Not on filedocumented in this encounter Additional Health Concerns Assessment Noted Time PHQ-9 Depression Total Score: 3 02/13/20 23 10:59 AM EDT documented as of this encounter Care Teams Roper Operator Relationship Specialty Start Date End Date Hazel Hu MD [address] [place] [address] PCP - General Internal Medicine 01/08/23 Leonora Michel RN [address] [place] [address] Registered Nurse Family Medicine 09/08/24 Nelida Serrato 09/08/24 documented as of this encounter
== END 2024-12-06 12:49 | disposition home or self-care (01) ==
LOC: HO.CT 12:48
PROVIDERS: PCP Student in an Organized Health Care Education/Training Program; Visit Provider Physician Assistant Medical
DX: Z12.2 Encounter for screening for malignant neoplasm of respiratory organs (principal); F17.210 Nicotine dependence, cigarettes, uncomplicated
CPT/HCPCS: 71271

== ENCOUNTER → 2024-12-06 12:50 | Outpatient (BNV) | payer MEDICAID, SELFPAY | PROVIDERS: PCP Student in an Organized Health Care Education/Training Program; Visit Provider Radiology Diagnostic Radiology | DX: F17.210 Nicotine dependence, cigarettes, uncomplicated (principal) | CPT/HCPCS: 71271 ==

== ENCOUNTER 2024-12-30 09:00 | Outpatient (RCR) | payer MEDICAID, SELFPAY | END 2024-12-31 10:13 | disposition home or self-care (01) | LOC: HO.PT 09:00 | PROVIDERS: PCP Student in an Organized Health Care Education/Training Program; Visit Provider Student in an Organized Health Care Education/Training Program | DX: M54.2 Cervicalgia (principal); M25.512 Pain in left shoulder; G89.29 Other chronic pain | CPT/HCPCS: 97110; 97161; 97530 ==

== ENCOUNTER 2025-01-12 08:45 | Outpatient (AMB) | payer MEDICAID, SELFPAY ==
--- OUTSIDE RECORDS SUMMARY | 2025-01-10 09:00 | XMS_ITS | Encounter Summary ---
Author Organization [employer] Address [address] [facility] 7t [place] [address] Care Team Providers Care Audit Reviewer Name Role Phone Hazel Hu MD Primary Care Pro vider Leonora Michel RN Unavailable [phone] Nelida Serrato Unavailable Reason for Visit * Reason Comments Dentures Encounter Details Date Type Department Care Team (Late st Contact Info) Description 01/10/2025 9:00 AM EDT Office Visit [facility]ULT [facility] [address] [place] [address] Derek Gomes, DMD [address] [place] [address] Social History Tobacco Use Types Packs/Day Years Used Date Smoking Tobacco: Every Day Cigarettes 1.5 53.7 Started: 1971 Passive Smoke Exposure: Never Smokeless [...] the past 12 months, has t he [employer], gas, oil or water company threatened to [...] Description 01/13/2025 10:00 AM EDT Office Visit [facility] [address] [place] [address] Derek Gomes, DMD [address] [place] [address] 02/11/2025 9:00 AM EDT Clinical Support [address] [address] Angeline Bond, SALINA [address] [place], [place] [phone] 02/25/2025 11:30 AM EST Office Visit [address] [address] Eric Muñoz MD [address] [place] [address] documented as of this encounter Goals Goal [...] documented as of this encounter Care Teams Audit Reviewer Relationship Specialty Start Date End Date Hazel Hu MD [address] [place] [address] PCP - General Internal Medicine 01/08/23 Leonora Michel, SALINA [address] [place] [address] Registered Nurse Family Medicine 09/08/24 Nelida Serrato 09/08/24 documented as of this encounter
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
[2025-01-12 08:49] VITALS: BP 127/62; PULSE 64; O2SAT 98; BMI 22.7
--- OUTSIDE RECORDS SUMMARY | 2025-01-12 09:21 | XMS_ITS | Encounter Summary ---
Author Organization [employer] Address [address] [facility] 7t [place] [address] Care Team Providers Care Clinical Operations Manager Name Role Phone Hazel Hu MD Primary Care Pro vider Leonora Michel RN Unavailable [phone] Nelida Serrato Unavailable Reason for Visit * Reason Comments Med Refill Encounter Details Date Type Department Care Team (Late st Contact Info) Description 05/25/2024 Refill [facility] [address] [place], [place] [phone] Hazel Hu MD [address] [place], [place] [phone] Annual physical exam Social History Tobacco Use [...] Description 01/13/2025 10:00 AM EDT Office Visit [facility] [address] [place] [address] Derek Gomes, DONTRELL [address] [place] [address] 02/11/2025 9:00 AM EDT Clinical Support [facility] [address] [place] [address] Angeline Bond, SALINA [address] [place] [address] 02/25/2025 11:30 AM EST Office Visit [address] [address] Eric Muñoz MD 230 [place] [address] documented as of this encounter Goals Goal [...] documented as of this encounter Care Teams Clinical Operations Manager Relationship Specialty Start Date End Date Hazel Hu MD [address] [place] [address] [phone] PCP - General Internal Medicine 01/08/23 Leonora Michel RN [address] [place] [address] Registered Nurse Family Medicine 09/08/24 Nelida Serrato 09/08/24 documented as of this encounter
--- OUTSIDE RECORDS SUMMARY | 2025-01-12 09:21 | XMS_ITS | Encounter Summary ---
Author Organization [employer] Address [address] [facility] 7t [place] [address] Care Team Providers Care Banking Manager Name Role Phone Hazel Hu MD Primary Care Pro vider Leonora Michel RN Unavailable [phone] Nelida Serrato Unavailable Reason for Visit * Reason Comments Med Refill Encounter Details Date Type Department Care Team (Late st Contact Info) Description 08/09/2024 Refill [facility] [address] [place], [place] [phone] Yahir Hickman MD 230 [place], [place] [phone] Social History Tobacco Use Types Packs/Day Years [...] the past 12 months, has t he [employer], gas, oil or water company threatened to [...] 01/13/2025 10:00 AM EDT Office Visit [facility] [address] [place] [phone] Derek Gomes, DONTRELL [address] [place] [address] 02/11/2025 9:00 AM EDT Clinical Support [facility] [address] [place] [phone] Angeline Bond, SALINA 505 [place] [address] 02/25/2025 11:30 AM EST Office Visit [address] [address] Eric Muñoz MD [address] [place] [address] documented as of this encounter Goals Goal Patient Goal Type Associated Problems Recent Progress Patient-Stated? Author Smoking cessation General Dari Bravo, SusieD documented as of this encounter Visit Diagnoses Not on filedocumented in this encounter Additional Health Concerns Assessment Noted Time PHQ-9 Depression Total Score: 3 02/13/20 23 10:59 AM EDT documented as of this encounter Care Teams Banking Manager Relationship Specialty Start Date End Date Hazel Hu MD [address] [place] [phone] PCP - General Internal Medicine 01/08/23 Leonora Michel, SALINA [address] [place] [address] Registered Nurse Family Medicine 09/08/24 Nelida Serrato 09/08/24 documented as of this encounter
--- OUTSIDE RECORDS SUMMARY | 2025-01-12 09:21 | XMS_ITS | Encounter Summary ---
Author Organization [employer] Address [address] [facility] 7t [place] [address] Care Team Providers Care Police Crime Scene Technician Name Role Phone Hazel Hu MD Primary Care Pro vider Leonora Michel RN Unavailable [phone] Nelida Serrato Unavailable Reason for Visit * Reason Comments Med Refill Encounter Details Date Type Department Care Team (Late st Contact Info) Description 10/02/2023 Refill [facility] [address] [place] [address] Hazel Hu MD [address] [place], [place] [phone] Lumbago with sciatica, left side Social History [...] Description 01/13/2025 10:00 AM EDT Office Visit [facility] [address] [place] [phone] Derek Gomes, DONTRELL [address] [place] [address] 02/11/2025 9:00 AM EDT Clinical Support [facility] [address] [place] [address] Angeline Bond RN 505 [place] [address] 02/25/2025 11:30 AM EST Office Visit [facility] [address] [place] [phone] Eric Muñoz MD 230 [place] [address] documented as of this encounter Goals Goal Patient Goal Type Associated Problems Recent Progress Patient-Stated? Author Smoking cessation General No Dari Simmons, SusieD documented as of this encounter Visit Diagnoses Diagnosis Lumbago with sciatica, left side documented in this encounter Additional Health Concerns Assessment Noted Time PHQ-9 Depression Total Score: 3 02/13/20 23 10:59 AM EDT documented as of this encounter Care Teams Police Crime Scene Technician Relationship Specialty Start Date End Date Hazel Hu MD [address] [place] [address] PCP - General Internal Medicine 01/08/23 Leonora Michel RN [address] [place] [address] Registered Nurse Family Medicine 09/08/24 Nelida Serrato 09/08/24 documented as of this encounter
--- OUTSIDE RECORDS SUMMARY | 2025-01-12 09:21 | XMS_ITS | Encounter Summary ---
Author Organization [employer] Address [address] [facility] 7t [place] [address] Care Team Providers Care Lang Interpreter Name Role Phone Christa Banegas OPEN DEVELOPER OPERATOR Primary Care Provider Anna Hazel Hanson MD Primary Care Pro vider Leonora Michel RN Unavailable [phone] Nelida Serrato Unavailable Reason for Visit * Reason Onset Date Comments Appointment Request 06/18/2022 Encounter Details Date Type Department Care Team (Late st Contact Info) Description 06/18/2022 Telephone [facility] [address] [place] [address] Christa Banegas FNP Appointment Request Social History Tobacco Use Types Packs/Day Years Used Date Smoking Tobacco: Every Day Cigarettes 1.5 53.7 Started: 1969 Smokeless Tobacco: Current Alcohol Use [...] no answer. L/M reminding he NCNS for HEARING AID TECHNICIAN initial appt on 04/25/22 and now is cancelling his HEARING AID TECHNICIAN initial appt 06/25/22. Left # for him to call and reschedule. Will update PCP. * Telephone Encounter - Randall Jones - 06/18/2022 12:36 PM EST Tc from pt requesting to r/s appt on 06-25-22 ( Initial HEARING AID TECHNICIAN ) documented in this encounter Plan of Treatment Upcoming Encounters Date Type Department Care Team ([facility] st Contact Info) Description 01/13/2025 10:00 AM EDT Office Visit [facility] [address] [place] [phone] Derek Gomes, DMD [address] [place] [address] 02/11/2025 9:00 AM EDT Clinical Support [facility] [address] [place] [phone] Angeline Bond RN [address] [place] [address] 02/25/2025 11:30 AM EST Office Visit [address] [address] Eric Muñoz MD [address] [place] [address] documented as of this encounter Visit Diagnoses Not on filedocumented in this encounter Care Teams Lang Interpreter Relationship Specialty Start Date End Date Christa Banegas FNP PCP - General Family Medicine 12/06/21 01/07/23 Hazel Hu MD [address] [place] [phone] PCP - General Internal Medicine 01/08/23 Leonora Michel, SALINA [address] [place] [address] [place] [address] Registered Nurse Family Medicine 09/08/24 Nelida Serrato 09/08/24 documented as of this encounter
--- OUTSIDE RECORDS SUMMARY | 2025-01-12 09:21 | XMS_ITS | Encounter Summary ---
Author Organization [email or web address] Address [address] [facility] 7t [place] [address] Care Team Providers Care District Director Name Role Phone Hazel Hu MD Primary Care Pro vider Leonora Michel RN Unavailable [phone] Nelida Serrato Unavailable Reason for Visit * Reason Onset Date Comments Appointment Request 07/09/2024 Encounter Details Date Type Department Care Team ([facility] st Contact Info) Description 07/09/2024 Telephone [facility] [address] [place] [address] Hazel Hu MD 230 [place] [address] Appointment Request Social History Tobacco Use Types [...] Description 01/13/2025 10:00 AM EDT Office Visit [facility] [address] [place] [address] Derek Gomes, DONTRELL [address] [place] [address] 02/11/2025 9:00 AM EDT Clinical Support [facility] [address] [place] [address] Angeline Bond, SALINA [address] [place] [address] 02/25/2025 11:30 AM EST Office Visit [facility] [address] [place] [address] Eric Muñoz MD [address] [place] [address] [phone] documented as of this encounter Goals Goal Patient Goal Type Associated Problems Recent Progress Patient-Stated? Author Smoking cessation General Dari Bravo, PharmD documented as of this encounter Visit Diagnoses Not on filedocumented in this encounter Additional Health Concerns Assessment Noted Time PHQ-9 Depression Total Score: 3 02/13/20 10:59 AM EDT documented as of this encounter Care Teams District Director Relationship Specialty Start Date End Date Hazel Hu MD [address] [place] [address] [phone] PCP - General Internal Medicine 01/08/23 Leonora Michel RN [address] [place] [address] Registered Nurse Family Medicine 09/08/24 Nelida Serrato 09/08/24 documented as of this encounter
--- OUTSIDE RECORDS SUMMARY | 2025-01-12 09:21 | XMS_ITS | Encounter Summary ---
Author Organization [employer] Address [address] [facility] 7t [place] [address] Care Team Providers Care Senior Audit Manager Name Role Phone Hazel Hu MD Primary Care Pro vider Leonora Michel RN Unavailable [phone] Nelida Serrato Unavailable Reason for Visit * Reason Comments Med Refill Encounter Details Date Type Department Care Team (Late st Contact Info) Description 09/01/[address] [facility] MEDICINE [address] [place] [address] Hazel Hu MD [address] [place], [place] [phone] Social History Tobacco Use Types Packs/Day Years [...] AM EDT documented as of this encounter Functional Status * Over the past 2 weeks, how often have you been bothered by any of the following problems? Question Answer Date of Assessment Author Patient Health Questionnaire -2 Score 0 09/03/2024 1:01 PM NIKOLAIT Flori Whipple MA * Little interest or pleasure in doing things Answer Date of Assessment Author Not at all 09/03/2024 1:01 PM NIKOLAIT Clarissa Whipple MA * Feeling down, depressed, or hopeless Answer Date of Assessment Author Not at all 09/03/2024 1:01 PM NIKOLAIT Clarissa Whipple MA * Trouble falling or staying asleep, or sleeping too much Answer Date of Assessment Author Not at all 09/03/2024 1:01 PM Clarissa Farrell MA * Feeling tired or having little energy Answer Date of Assessment Author Not at all 09/03/2024 1:01 PM NIKOLAIT Clarissa Whipple MA * Poor appetite or overeating Answer Date of Assessment Author Not at all 09/03/2024 1:01 PM EDT Clarissa Whipple MA * Feeling bad about yourself - or that you are a failure or have let yourself or your family down Answer Date of Assessment Author Not at all 09/03/2024 1:01 PM EDT Clarissa Whipple MA * Trouble concentrating on things, such as reading the newspaper or watching television Answer Date of Assessment Author Not at all 09/03/2024 1:01 PM EDT Clarissa Whipple MA * Moving or speaking so slowly that other people could have noticed? Or the opposite - being so fidgety or restless that you have been moving around a lot more than usual. Answer Date of Assessment Author Not at all 09/03/2024 1:01 PM NIKOLAIT Clarissa Whpiple MA * Thoughts that you would be better off or hurting yourself in some way Answer Date of Assessment Author Not at all 09/03/2024 1:01 PM EDT Clarissa Whipple MA * Patient Health Questionnaire-9 Score Answer Date of Assessment Author 0 09/03/2024 1:01 PM NIKOLAIT Clarissa Whipple MA * Over the last 2 weeks, how often have you been bothered by any of the following problems? Question Answer Date of Assessment Author Feeling nervous, anxious, or on edge 0 09/03/2024 1:01 PM EDT Flori Whipple MA Not being able to stop or co ntrol worrying 0 09/03/2024 1:01 PM EDT Flori Whipple MA Worrying too much about diff erent things 0 09/03/2024 1:01 PM EDT Flori Whipple MA Trouble relaxing 0 09/03/2024 1:01 PM EDT Flori Ruiz MA Being so restless that it is hard to sit still 0 09/03/2024 1:01 PM NIKOLAIT Flori Whipple MA Becoming easily annoyed or irritable 0 09/03/2024 1:01 PM EDT Flori Whipple MA Feeling afraid as if somethi ng awful might happen 0 09/03/2024 1:01 PM EDT Flori Whipple MA TOÑA-7 Total Score 0 09/03/2024 1:01 PM EDT Flori Whipple MA documented as of this encounter Plan of Treatment Upcoming Encounters Date Type Department Care Team (Late st Contact Info) Description 01/13/2025 10:00 AM EDT Office Visit [facility] ADULT DENTAL [address] [place] [address] Derek Gomes, DMD [address] [place] [address] 02/11/2025 9:00 AM EDT Clinical Support [facility] MEDICINE [address] [place] [address] Angeline Bond RN [address] [place], [place] [phone] 02/25/2025 11:30 AM EST Office Visit [facility] MED[facility]INE [address] [place] [address] Eric Muñoz MD 230 [place] [address] documented as of this encounter Goals Goal Patient Goal Type Associated Problems Recent Progress Patient-Stated? Author Smoking cessation General Dari Bravo, PharmD documented as of this encounter Visit Diagnoses Not on filedocumented in this encounter Additional Health Concerns Assessment Noted Time PHQ-9 Depression Total Score: 3 02/13/20 23 10:59 AM EDT documented as of this encounter Care Teams Senior Audit Manager Relationship Specialty Start Date End Date Hazel Hu MD [address] [place] [address] PCP - General Internal Medicine 01/08/23 Leonora Michel RN [address] [place] [address] Registered Nurse Family Medicine 09/08/24 Nelida Serrato 09/08/24 documented as of this encounter
--- OUTSIDE RECORDS SUMMARY | 2025-01-12 09:21 | XMS_ITS | Encounter Summary ---
Author Organization [employer] Address [address] [facility] 7t [place] [address] Care Team Providers Care Marine Chronometer Assembler Name Role Phone Hazel Hu MD Primary Care Pro vider Leonora Michel RN Unavailable [phone] Nelida Serrato Unavailable Reason for Visit * Reason Comments Med Refill Encounter Details Date Type Department Care Team (Late st Contact Info) Description 07/27/2024 Refill [facility] MED & PEDS [address] [place], [place] [phone] Kacie Hutchison MD 230 [place] [address] Lumbago with sciatica, left side Social History [...] Description 01/13/2025 10:00 AM EDT Office Visit [facility] ADULT DENTAL [address] [place] [phone] Derek Gomes, DONTRELL [address] [place] [address] 02/11/2025 9:00 AM EDT Clinical Support [facility] MEDICINE [address] [place] [address] Angeline Bond RN 505 [place] [address] 02/25/2025 11:30 AM EST Office Visit [facility] MEDICINE [address] [place] [address] Eric Muñoz MD [address] [place] [address] documented as of this encounter Goals Goal Patient Goal Type Associated Problems Recent Progress Patient-Stated? Author Smoking cessation General Dari Bravo, PharmD documented as of this encounter Visit Diagnoses Diagnosis Lumbago with sciatica, left side documented in this encounter Additional Health Concerns Assessment Noted Time PHQ-9 Depression Total Score: 3 02/13/20 10:59 AM EDT documented as of this encounter Care Teams Marine Chronometer Assembler Relationship Specialty Start Date End Date Hazel Hu MD [address] [place] [address] PCP - General Internal Medicine 01/08/23 Leonora Michel RN [address] [place] [address] Registered Nurse Family Medicine 09/08/24 Nelida Serrato 09/08/24 documented as of this encounter
--- OUTSIDE RECORDS SUMMARY | 2025-01-12 09:21 | XMS_ITS ---
Author Organization [employer] Address [address] [facility] 7t [place] [address] Care Team Providers Care Learning And Development Officer Name Role Phone Hazel Hu MD Primary Care Pro vider Leonora Michel RN Unavailable [phone] Nelida Serrato Unavailable CM Complex Status:Outreach In Progress (Enrolling) Start date:09/08/2024 Enrollment reason:Referred by provider Overview PCP Referral- PT needs help with apts Case Team Name Relationship Phone Leonora Michel RN(Responsible Staff) Registered Nurse [phone] Continued Care and Services Coordination
--- OUTSIDE RECORDS SUMMARY | 2025-01-12 09:21 | XMS_ITS | Encounter Summary ---
Author Organization [employer] Address [address] [facility] 7t [place] [address] Care Team Providers Care Analysis Analyst Name Role Phone Hazel Hu MD Primary Care Pro vider Leonora Michel RN Unavailable [phone] Nelida Serrato Unavailable Reason for Visit * Reason Onset Date Comments Med Refill 01/14/2024 Encounter Details Date Type Department Care Team ([facility] st Contact Info) Description 01/14/2024 Telephone [facility] MEDICINE [address] [place] [address] Hazel Hu MD [address] [place] [address] Med Refill Social History Tobacco Use Types [...] 50 MG tablet To be sent to: [facility] - [place], [place] - [address] [place] [address] documented in this encounter Plan of Treatment Upcoming Encounters Date Type Department Care Team ([facility] st Contact Info) Description 01/13/2025 10:00 AM EDT Office Visit [facility] ADULT DENTAL [address] [place] [address] Derek Gomes, DONTRELL [address] [place] [address] 02/11/2025 9:00 AM EDT Clinical Support [facility] MEDICINE [address] [place] [address] McMAngeline melgar RN [address] [place] [address] 02/25/2025 11:30 AM EST Office Visit [facility] MEDICINE [address] [place], [place] [phone] Eric Muñoz MD 230 [place], [place] [phone] documented as of this encounter Goals Goal Patient Goal Type Associated Problems Recent Progress Patient-Stated? Author Smoking cessation General Dari Bravo, PharmD documented as of this encounter Visit Diagnoses Not on filedocumented in this encounter Additional Health Concerns Assessment Noted Time PHQ-9 Depression Total Score: 3 02/13/20 10:59 AM EDT documented as of this encounter Care Teams Analysis Analyst Relationship Specialty Start Date End Date Hazel Hu MD [address] [place], [place] [phone] PCP - General Internal Medicine 01/08/23 Leonora Michel RN [address] [place] [address] Registered Nurse Family Medicine 09/08/24 Nelida Serrato 09/08/24 documented as of this encounter
--- OUTSIDE RECORDS SUMMARY | 2025-01-12 09:21 | XMS_ITS | Encounter Summary ---
Author Organization [employer] Address [address] [facility] 7t [place] [address] Care Team Providers Care Shaker Screen Operator Name Role Phone Hazel Hu MD Primary Care Pro vider Leonora Michel RN Unavailable [phone] Nelida Serrato Unavailable Reason for Visit * Reason Comments Med Refill Encounter Details Date Type Department Care Team (Late st Contact Info) Description 05/25/2024 Refill [facility] MEDICINE [address] [place] [address] Hazel Hu MD 230 [place], [place] [phone] Annual physical exam Social History Tobacco Use [...] the past 12 months, has t he [employer], gas, oil or water company threatened to [...] Description 01/13/2025 10:00 AM EDT Office Visit [facility] ADULT DENTAL [address] [place] [address] Derek Gomes, DONTRELL 230 [place] [address] 02/11/2025 9:00 AM EDT Clinical Support [facility] MEDICINE [address] [place] [address] Angeline Bond, SALINA [address] [place] [address] 02/25/2025 11:30 AM EST Office Visit [address] [address] Eric Muñoz MD 230 [place] [address] documented as of this encounter Goals Goal [...] documented as of this encounter Care Teams Shaker Screen Operator Relationship Specialty Start Date End Date Hazel Hu MD [address] [place] [address] PCP - General Internal Medicine 01/08/23 Leonora Michel RN [address] [place] [address] Registered Nurse Family Medicine 09/08/24 Nelida Serrato 09/08/24 documented as of this encounter
--- OUTSIDE RECORDS SUMMARY | 2025-01-12 09:21 | XMS_ITS | Encounter Summary ---
Author Organization [employer] Address [address] [facility] 7t [place] [address] Care Team Providers Care Plant Maintenance Mechanic Name Role Phone Hazel Hu MD Primary Care Pro vider Leonora Michel RN Unavailable [phone] Nelida Serrato Unavailable Reason for Visit * Reason Comments Med Refill Encounter Details Date Type Department Care Team (Late st Contact Info) Description 06/04/2024 Refill [facility] MEDICINE [address] [place] [address] Hazel Hu MD 230 [place], [place] [phone] Social History Tobacco Use Types Packs/Day Years [...] the past 12 months, has t he [employer], gas, oil or water company threatened to [...] Description 01/13/2025 10:00 AM EDT Office Visit [facility] ADULT DENTAL [address] [place] [address] Derek Gomes, DONTRELL [address] [place] [address] 02/11/2025 9:00 AM EDT Clinical Support [facility] MEDICINE [address] [place] [address] Angeline Bond RN 505 [place] [address] 02/25/2025 11:30 AM EST Office Visit [address] [address] Eric Muñoz MD 230 [place] [address] documented as of this encounter Goals Goal Patient Goal Type Associated Problems Recent Progress Patient-Stated? Author Smoking cessation General No Simmons, Dari, SusieD documented as of this encounter Visit Diagnoses Not on filedocumented in this encounter Additional Health Concerns Assessment Noted Time PHQ-9 Depression Total Score: 3 02/13/20 23 10:59 AM EDT documented as of this encounter Care Teams Plant Maintenance Mechanic Relationship Specialty Start Date End Date Hazel Hu MD [address] [place] [phone] PCP - General Internal Medicine 01/08/23 Leonora Michel, SALINA [address] [place] [address] Registered Nurse Family Medicine 09/08/24 Nelida Serrato 09/08/24 documented as of this encounter
--- OUTSIDE RECORDS SUMMARY | 2025-01-12 09:21 | XMS_ITS | Encounter Summary ---
Author Organization [employer] Address [address] [facility] 7t [place] [address] Care Team Providers Care Oil And Gas Lease Pumper Name Role Phone Hazel Hu MD Primary Care Pro vider Leonora Michel RN Unavailable [phone] Nelida Serrato Unavailable Encounter Details Date Type Department Care Team ([facility] st Contact Info) Description 05/20/2024 Orders Only [facility] MEDICINE [address] [place], [place] [phone] Jaqueline Davis, ANP [address] [place] [address] Social History Tobacco Use Types Packs/Day Years [...] 10:00 AM EDT Office Visit [facility] ADULT DENTAL [address] [place] [address] Derek Gomes, DMD 230 [place] [address] 02/11/2025 9:00 AM EDT Clinical Support [facility] MEDICINE [address] [place] [address] Angeline Bond RN 505 [place] [address] 02/25/2025 11:30 AM EST Office Visit [facility] MEDICINE [address] [place] [address] Eric Muñoz MD [address] [place] [address] documented as of this encounter Goals Goal Patient Goal Type Associated Problems Recent Progress Patient-Stated? Author Smoking cessation General No Dari Simmons, PharmD documented as of this encounter Visit Diagnoses Not on filedocumented in this encounter Additional Health Concerns Assessment Noted Time PHQ-9 Depression Total Score: 3 02/13/20 23 10:59 AM EDT documented as of this encounter Care Teams Oil And Gas Lease Pumper Relationship Specialty Start Date End Date Hazel Hu MD [address] [place] [address] PCP - General Internal Medicine 01/08/23 Leoonra Michel, SALINA [address] [place] [address] Registered Nurse Family Medicine 09/08/24 Nelida Serrato 09/08/24 documented as of this encounter
--- OUTSIDE RECORDS SUMMARY | 2025-01-12 09:21 | XMS_ITS | Encounter Summary ---
Author Organization [employer] Address [address] [facility] 7t [place] [address] Care Team Providers Care Contact Lens Polisher Name Role Phone Hazel Hu MD Primary Care Pro vider Leonora Michel RN Unavailable [phone] Nelida Serrato Unavailable Reason for Visit * Reason Comments Med Refill Encounter Details Date Type Department Care Team (Late st Contact Info) Description 01/11/2025 Refill [facility] MEDICINE [address] [place] [address] Yahir Hickman MD 230 [place], [place] [phone] Social History Tobacco Use Types Packs/Day Years [...] the past 12 months, has t he [employer], gas, oil or water company threatened to [...] Description 01/13/2025 10:00 AM EDT Office Visit [facility] ADULT DENTAL [address] [place] [address] Derek Gomes, DONTRELL [address] [place] [address] 02/11/2025 9:00 AM EDT Clinical Support [facility] MEDICINE [address] [place] [address] Angeline Bond, SALINA 505 [place] [address] 02/25/2025 11:30 AM EST Office Visit [address] [address] Eric Muñoz MD [address] [place] [address] documented as of this encounter Goals Goal Patient Goal Type Associated Problems Recent Progress Patient-Stated? Author Smoking cessation General Dari Bravo, PharmD documented as of this encounter Visit Diagnoses Not on filedocumented in this encounter Additional Health Concerns Assessment Noted Time PHQ-9 Depression Total Score: 0 09/04/19 1:01 PM EDT documented as of this encounter Care Teams Contact Lens Polisher Relationship Specialty Start Date End Date Hazel Hu MD [address] [place] [address] PCP - General Internal Medicine 01/08/23 Leonora Michel, SALINA [address] [place] [address] Registered Nurse Family Medicine 09/08/24 Nelida Serrato 09/08/24 documented as of this encounter
--- OUTSIDE RECORDS SUMMARY | 2025-01-12 09:21 | XMS_ITS | Clinical Summary ---
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 [facility] Co de Phone Number [facility] [address] [place] [address] [phone] * Hepatitis C Antibody with Reflex to HCV, RNA, Quantitative, Real-Time PCR (02/13/2023 8:25 AM EDT) Hepatitis C Antibody Nonreactive Nonreactive [facility] Comment:Antibodies to HCV no t detected; does not exclude early acuteHCV infection. Blood Venous blood specimen / Unknown 02/13/2023 8:25 AM EDT 02/13/2023 11:12 AM EDT us Hazel Rojas MD LAB BLOOD ORDERAB LES Final Result Performing Organization Address [facility] Co de Phone Number [facility] [address] [place] [phone] * HIV-1/2 Antigen and Antibodies, Fourth Generation, with Reflexes (02/13/2023 8:25 AM EDT) HIV AB/AG Nonreactive Nonreactive [facility] Comment:HIV-1 p24 Ag and/or HIV-1/HIV-2 Ab not detected.A test result that is nonreactive does not exclude thepossibility of exposure to or infection with HIV-1 and/orHIV-2. Nonreactive results in this assay for individualswith prior exposure to HIV-1 and/or HIV-2 may be due toantigen and antibody levels that are below the limit ofdetection of this assay.The [employer] HIV Ag/Ab Combo assay result andsupplemental assay results should be interpreted inconjunction with the patient's clinical presentation,history and other laboratory results. If the results areinconsistent with clinical evidence, additional testing issuggested to confirm the result. Blood Venous blood specimen / Unknown 02/13/2023 8:25 AM EDT 02/13/2023 11:12 AM EDT us Hazel Rojas MD LAB BLOOD ORDERAB LES Final Result Performing Organization Address City/State/[facility] Co de Phone Number [facility] [address] [place] [phone] [phone] from Last 3 Months or Most Recently Relevant to Health Maintenance Insurance [facility] C3 DENTAL-[facility] MEDICAID STAND ADULT Care Teams Model Maker Plastic Relationship Specialty Start Date End Date Hazel Hu MD [address] [place] [phone] PCP - General Internal Medicine 01/08/23 Leonora Michel RN [address] [place] [address] Registered Nurse Family Medicine 09/08/24 Nelida Serrato 09/08/24
--- OUTSIDE RECORDS SUMMARY | 2025-01-12 09:21 | XMS_ITS | Encounter Summary ---
Author Organization [employer] Address 75 [facility] 7t [place] [address] Care Team Providers Care Merchandise Supervisor Name Role Phone Hazel Hu MD Primary Care Pro vider Leonora Michel RN Unavailable [phone] Nelida Serrato Unavailable Encounter Details Date Type Department Care Team ([facility] Contact Info) Description 01/14/2024 Orders Only [facility] [address] [place] [address] Kacie Hutchison MD [address] [place] [address] Social History Tobacco Use Types Packs/Day Years [...] Description 01/13/2025 10:00 AM EDT Office Visit [facility] ADULT DENTAL [address] [place] [phone] Derek Gomes, DMD [address] [place] [address] 02/11/2025 9:00 AM EDT Clinical Support [facility] [address] [place] [address] Angeline Bond RN 505 [place] [address] 02/25/2025 11:30 AM EST Office Visit [facility] [address] [place] [phone] Eric Muñoz MD 230 [place] [address] documented as of this encounter Goals Goal Patient Goal Type Associated Problems Recent Progress Patient-Stated? Author Smoking cessation General No Dari Simmons, PharmD documented as of this encounter Visit Diagnoses Not on filedocumented in this encounter Additional Health Concerns Assessment Noted Time PHQ-9 Depression Total Score: 3 02/13/20 23 10:59 AM EDT documented as of this encounter Care Teams Merchandise Supervisor Relationship Specialty Start Date End Date Hazel Hu MD [address] [place] [phone] PCP - General Internal Medicine 01/08/23 Leonora Michel, SALINA [address] [place] [address] Registered Nurse Family Medicine 09/08/24 Nelida Serrato 09/08/24 documented as of this encounter
--- OUTSIDE RECORDS SUMMARY | 2025-01-12 09:21 | XMS_ITS | Encounter Summary ---
Author Organization [employer] Address 75 [facility] 7t [place] [address] Care Team Providers Care Orthodontic Assistant Name Role Phone Hazel Hu MD Primary Care Pro vider Leonora Michel RN Unavailable [phone] Nelida Serrato Unavailable Reason for Visit * Reason Comments Med Refill Encounter Details Date Type Department Care Team (Late st Contact Info) Description 09/20/2024 Refill [facility] [address] [place] [address] Hazel Hu MD 230 [place], [place] [phone] Social History Tobacco Use Types Packs/Day Years [...] the past 12 months, has t he [employer], gas, oil or water company threatened to [...] Description 01/13/2025 10:00 AM EDT Office Visit [facility] ADULT DENTAL [address] [place] [phone] Derek Gomes, DONTRELL 230 [place] [address] 02/11/2025 9:00 AM EDT Clinical Support [facility] [address] [place] [address] Angeline Bond RN 505 [place] [address] 02/25/2025 11:30 AM EST Office Visit [address] [address] Eric Muñoz MD 230 [place] [address] documented as of this encounter Goals Goal Patient Goal Type Associated Problems Recent Progress Patient-Stated? Author Smoking cessation General No Simmons, Dari, SusieD documented as of this encounter Visit Diagnoses Not on filedocumented in this encounter Additional Health Concerns Assessment Noted Time PHQ-9 Depression Total Score: 0 09/04/19 25 1:01 PM EDT documented as of this encounter Care Teams Orthodontic Assistant Relationship Specialty Start Date End Date Hazel Hu MD [address] [place] [address] [phone] PCP - General Internal Medicine 01/08/23 Leonora Michel, SALINA [address] [place] [address] Registered Nurse Family Medicine 09/08/24 Nelida Serrato 09/08/24 documented as of this encounter
--- OUTSIDE RECORDS SUMMARY | 2025-01-12 09:21 | XMS_ITS | Encounter Summary ---
Author Organization [employer] Address 75 [facility] 7t [place] [address] Care Team Providers Care Studio Producer Name Role Phone Hazel Hu MD Primary Care Pro vider Leonora Michel RN Unavailable [phone] Nelida Serrato Unavailable Reason for Visit * Reason Comments Med Refill Encounter Details Date Type Department Care Team (Late st Contact Info) Description 12/29/2024 Refill [facility] [address] [place] [address] Hazel Hu MD 230 [place], [place] [phone] Social History Tobacco Use Types Packs/Day Years [...] the past 12 months, has t he [employer], gas, oil or water company threatened to [...] 01/13/2025 10:00 AM EDT Office Visit [facility] ADULT DENTAL [address] [place] [phone] Derek Gomes, DONTRELL [address] [place] [address] 02/11/2025 9:00 AM EDT Clinical Support [facility] [address] [place] [address] Angeline Bond, SALINA 505 [place] [address] 02/25/2025 11:30 AM EST Office Visit [facility] [address] [place] [address] Eric Muñoz MD 230 [place] [address] documented as of this encounter Goals Goal Patient Goal Type Associated Problems Recent Progress Patient-Stated? Author Smoking cessation General No Simmons, Dari, SusieD documented as of this encounter Visit Diagnoses Not on filedocumented in this encounter Additional Health Concerns Assessment Noted Time PHQ-9 Depression Total Score: 0 09/04/19 25 1:01 PM EDT documented as of this encounter Care Teams Studio Producer Relationship Specialty Start Date End Date Hazel Hu MD [address] [place] [address] [phone] PCP - General Internal Medicine 01/08/23 Leonora Michel, SALINA [address] [place] [address] Registered Nurse Family Medicine 09/08/24 Nelida Serrato 09/08/24 documented as of this encounter
--- OUTSIDE RECORDS SUMMARY | 2025-01-12 09:21 | XMS_ITS | Encounter Summary ---
Author Organization [employer] Address 75 [facility] 7t [place] [address] Care Team Providers Care Mold Shop Supervisor Name Role Phone Hazel Hu MD Primary Care Pro vider Leonora Michel RN Unavailable [phone] Nelida Serrato Unavailable Encounter Details Date Type Department Care Team ([facility] Contact Info) Description 12/06/2024 Results Follow-Up [facility] [address] [place] [address] Hazel Hu MD 230 [place] [address] CT Lung Screening Low dose Social History Tobacco Use Types Packs/Day Years [...] as of this encounter Miscellaneous Notes * Result Encounter Note - Hazel Rojas MD - 12/06/2024 2:42 PM EDT Please assist pt getting apt w me for next 1 to 2 months for annual exam Thanks documented in this encounter Plan of Treatment Upcoming Encounters Date Type Department Care Team (Late st Contact Info) Description 01/13/2025 10:00 AM EDT Office Visit [facility] ADULT DENTAL [address] [place] [address] Derek Gomes, DMD 230 [place] [address] 02/11/2025 9:00 AM EDT Clinical Support [facility] [address] [place] [address] Angeline Bond RN 505 [place] [address] 02/25/2025 11:30 AM EST Office Visit [facility] 230 [place] [address] Eric Muñoz MD 230 [place] [address] documented as of this encounter Goals Goal Patient Goal Type Associated Problems Recent Progress Patient-Stated? Author Smoking cessation General Dari Bravo, PharmD documented as of this encounter Visit Diagnoses Not on filedocumented in this encounter Additional Health Concerns Assessment Noted Time PHQ-9 Depression Total Score: 0 09/04/19 1:01 PM EDT documented as of this encounter Care Teams Mold Shop Supervisor Relationship Specialty Start Date End Date Hazel Hu MD [address] [place] [address] PCP - General Internal Medicine 01/08/23 Leonora Michel RN [address] [place] [address] Registered Nurse Family Medicine 09/08/24 Nelida Serrato 09/08/24 documented as of this encounter
--- OUTSIDE RECORDS SUMMARY | 2025-01-12 09:21 | XMS_ITS | Encounter Summary ---
Author Organization [employer] Address 75 [facility] 7t [place] [address] Care Team Providers Care Prepress Proofer Name Role Phone Hazel Hu MD Primary Care Pro vider Leonora Michel RN Unavailable [phone] Nelida Serrato Unavailable Reason for Visit * Reason Onset Date Comments Med Refill 01/14/2024 Encounter Details Date Type Department Care Team ([facility] st Contact Info) Description 01/14/2024 Telephone [facility] MED[facility]INE [address] [place] [address] Hazel Hu MD 230 [place] [address] Med Refill Social History Tobacco Use Types [...] last filled 11/26/22 * Telephone Encounter - Becca Krause - 01/14/2024 1:16 PM EDT TC from pt requesting medication refill. Medications needing refill : sildenafil (Viagra) 50 MG tablet To be sent to: [facility] - [place], [place] - [address] [facility] documented in this encounter Plan of Treatment Upcoming Encounters Date Type Department Care Team (Late st Contact Info) Description 01/13/2025 10:00 AM EDT Office Visit [facility] ADULT DENTAL [address] [place] [address] Derek Gomes, DMD [address] [place] [address] 02/11/2025 9:00 AM EDT Clinical Support [facility] MED[facility]INE [address] [place] [address] Angeline Bond RN 505 [place], [place] [phone] 02/25/2025 11:30 AM EST Office Visit [address] [address] Eric Muñoz MD 230 [place] [address] documented as of this encounter Goals Goal Patient Goal Type Associated Problems Recent Progress Patient-Stated? Author Smoking cessation General Dari Bravo, SusieD documented as of this encounter Visit Diagnoses Not on filedocumented in this encounter Additional Health Concerns Assessment Noted Time PHQ-9 Depression Total Score: 3 02/13/20 23 10:59 AM EDT documented as of this encounter Care Teams Prepress Proofer Relationship Specialty Start Date End Date Hazel Hu MD [address] [place] [address] PCP - General Internal Medicine 01/08/23 Leonora Michel RN 505 [place], [place] [phone] Registered Nurse Family Medicine 09/08/24 Nelida Serrato 09/08/24 documented as of this encounter
--- OUTSIDE RECORDS SUMMARY | 2025-01-12 09:21 | XMS_ITS | Encounter Summary ---
Author Organization [employer] Address 75 [facility] 7t [place] [address] Care Team Providers Care Auxiliary Engineer Name Role Phone Hazel Hu MD Primary Care Pro vider Leonora Michel RN Unavailable [phone] Nelida Serrato Unavailable Reason for Visit * Reason Comments Med Refill Encounter Details Date Type Department Care Team (Late st Contact Info) Description 08/19/2024 Refill [facility] [address] [place], [place] [phone] Yahir Hickman MD 230 [place], [place] [phone] Social History Tobacco Use Types Packs/Day Years [...] the past 12 months, has t he [employer], gas, oil or water company threatened to [...] Description 01/13/2025 10:00 AM EDT Office Visit [facility] ADULT DENTAL [address] [place] [address] Derek Gomes, DONTRELL 230 [place] [address] 02/11/2025 9:00 AM EDT Clinical Support [facility] [address] [place] [address] Angeline Bond, SALINA 505 [place] [address] 02/25/2025 11:30 AM EST Office Visit [address] [address] Eric Muñoz MD [address] [place] [address] documented as of this encounter Goals Goal Patient Goal Type Associated Problems Recent Progress Patient-Stated? Author Smoking cessation General Dari Bravo, SusieD documented as of this encounter Visit Diagnoses Not on filedocumented in this encounter Additional Health Concerns Assessment Noted Time PHQ-9 Depression Total Score: 3 02/13/20 23 10:59 AM EDT documented as of this encounter Care Teams Auxiliary Engineer Relationship Specialty Start Date End Date Hazel Hu MD [address] [place] [address] PCP - General Internal Medicine 01/08/23 Leonora Michel, SALINA [address] [place] [address] Registered Nurse Family Medicine 09/08/24 Nelida Serrato 09/08/24 documented as of this encounter
--- OUTSIDE RECORDS SUMMARY | 2025-01-12 09:21 | XMS_ITS ---
Author Organization [employer] Address 75 [facility] 7t [place] [address] Care Team Providers Care Rn Practitioner Name Role Phone Hazel Hu MD Primary Care Pro vider Leonora Michel RN Unavailable [phone] Nelida Serrato Unavailable CHW Complex Status:Outreach In Progress (Enrolling) Start date:09/08/2024 Enrollment reason:Referred by provider Overview PCP Referral- PT needs help with apts. Please outreach for enrollment. Case Team Name Relationship Phone Nelida Serrato(Responsible Staff) [phone] Continued Care and Services Coordination
== END 2025-01-12 10:03 | disposition home or self-care (01) ==
LOC: HO.HGI 08:46
PROVIDERS: PCP Student in an Organized Health Care Education/Training Program; Visit Provider Nurse Practitioner Family
DX: R19.7 Diarrhea, unspecified (principal); R79.89 Other specified abnormal findings of blood chemistry
CPT/HCPCS: 99215

== ENCOUNTER → 2025-01-12 08:45 | Outpatient (BNVA) | payer MEDICAID, SELFPAY | PROVIDERS: PCP Student in an Organized Health Care Education/Training Program; Visit Provider Nurse Practitioner Family | DX: R79.89 Other specified abnormal findings of blood chemistry (principal); R19.7 Diarrhea, unspecified | CPT/HCPCS: 99212 ==

== ENCOUNTER 2025-01-13 08:43 | Outpatient (REF) | payer MEDICAID, SELFPAY ==
--- OUTSIDE RECORDS SUMMARY | 2025-01-10 09:00 | XMS_ITS | Encounter Summary ---
Author Organization [employer] Address [address] [facility] [address]t [place] [address] Care Team Providers Care Senior Care Assistant Name Role Phone Hazel Hu MD Primary Care Pro vider Leonora Michel RN Unavailable [phone] Nelida Serrato Unavailable Reason for Visit * Reason Comments Dentures Encounter Details Date Type Department Care Team (Late st Contact Info) Description 01/10/2025 9:00 AM EDT Office Visit [facility] [address] [place] [address] Derek Gomes, DMD [address] [place], [place] [phone] Social History Tobacco Use Types Packs/Day Years Used Date Smoking Tobacco: Every Day Cigarettes 1.5 53.8 Started: 1969 Passive Smoke Exposure: Never Smokeless [...] the past 12 months, has t he [employer], gas, oil or water company threatened to [...] AM EDT documented as of this encounter Last Filed Vital Signs Vital Sign Reading Time Taken Comments Blood Pressure 130/76 01/10/2025 9:06 AM EDT Pulse - - Temperature - - Respiratory Rate - - Oxygen Saturation - - Inhaled Oxygen Concentration - - Weight - - Height - - Body Mass Index - - documented in this encounter Progress Notes * Derek Gomes DMD - 01/10/2025 9:00 AM EDT C/C: broken F/. Pt used crazy glue to glue it back Crack resin base of F/. Need to send F/ to lab for repair Pt does not want to be without F/ for couple days Recommend pt to come back on morning to drop his F/ and we will give the F/ back to him oniday. Pt agreed Jer documented in this encounter Plan of Treatment Upcoming Encounters Date Type Department Care Team (Late st Contact Info) Description 01/13/2025 10:00 AM EDT Office Visit [facility] [address] [place] [address] Derek Gomes, DMD [address] [place] [address] 02/11/2025 9:00 AM EDT Clinical Support [address] [address] Angeline Bond, SALINA [address] [place], [place] [phone] 02/25/2025 11:30 AM EST Office Visit [address] [address] Eric Muñoz MD [address] [place] [address] documented as of this encounter Goals Goal Patient Goal Type Associated Problems Recent Progress Patient-Stated? Author Smoking cessation General Dari Bravo, Moustapha documented as of this encounter Procedures Procedure Name Priority Date/Time Associated Diagnosis Comments NO CHARGE VISIT Routine 01/10/2025 9:00 AM EDT documented in this encounter Visit Diagnoses Not on filedocumented in this encounter Additional Health Concerns Assessment Noted Time PHQ-9 Depression Total Score: 0 09/04/19 25 1:01 PM EDT documented as of this encounter Care Teams Senior Care Assistant Relationship Specialty Start Date End Date Hazel Hu MD [address] [place] [address] PCP - General Internal Medicine 01/08/23 Leonora Michel, SALINA [address] [place] [address] Registered Nurse Family Medicine 09/08/24 Nelida Serrato 09/08/24 documented as of this encounter
--- OUTSIDE RECORDS SUMMARY | 2025-01-13 09:13 | XMS_ITS | Encounter Summary ---
Author Organization [employer] Address 75 [facility] 7t [place] [address] Care Team Providers Care Crew Chief Name Role Phone Hazel Hu MD Primary Care Pro vider Leonora Michel RN Unavailable [phone] Nelida Serrato Unavailable Reason for Visit * Reason Comments Med Refill Encounter Details Date Type Department Care Team (Late st Contact Info) Description 09/01/2024 Refill [facility] MEDICINE [address] [place] [address] Hazel Hu MD 230 [place], [place] [phone] Social History Tobacco Use Types Packs/Day Years [...] 1:01 PM NIKOLAIT Clarissa Whipple MA * Thoughts that you would be [...] Description 01/13/2025 10:00 AM EDT Office Visit [facility] ADULT DENTAL [address] [place] [address] Derek Gomes, DMD 230 [place] [address] 02/11/2025 9:00 AM EDT Clinical Support [facility] MEDICINE [address] [place] [address] Angeline Bond RN 505 [place], [place] [phone] 02/25/2025 11:30 AM EST Office Visit [facility] MEDICINE [address] [place] [address] Eric Muñoz MD 230 [place] [address] documented as of this encounter Goals Goal Patient Goal Type Associated Problems Recent Progress Patient-Stated? Author Smoking cessation General Dari Bravo, PharmD documented as of this encounter Visit Diagnoses Not on filedocumented in this encounter Additional Health Concerns Assessment Noted Time PHQ-9 Depression Total Score: 3 02/13/20 23 10:59 AM EDT documented as of this encounter Care Teams Crew Chief Relationship Specialty Start Date End Date Hazel Hu MD 230 [place] [address] PCP - General Internal Medicine 01/08/23 Leonora Michel RN 505 [place] [address] Registered Nurse Family Medicine 09/08/24 Nelida Serrato 09/08/24 documented as of this encounter
--- OUTSIDE RECORDS SUMMARY | 2025-01-13 09:13 | XMS_ITS ---
Author Organization [employer] Address 75 [facility] 7t [place] [address] Care Team Providers Care Pipe Smoker Machine Operator Name Role Phone Hazel Hu MD Primary Care Pro vider Leonora Michel RN Unavailable [phone] Nelida Serrato Unavailable CHW Complex Status:Outreach In Progress (Enrolling) Start date:09/08/2024 Enrollment reason:Referred by provider Overview PCP Referral- PT needs help with apts. Please outreach for enrollment. Case Team Name Relationship Phone Nelida Serrato(Responsible Staff) [phone] Continued Care and Services Coordination
--- OUTSIDE RECORDS SUMMARY | 2025-01-13 09:13 | XMS_ITS | Encounter Summary ---
Author Organization [employer] Address 75 [facility] 7t [place] [address] Care Team Providers Care Teacher Advisor Name Role Phone Hazel Hu MD Primary Care Pro vider Leonora Michel RN Unavailable [phone] Nelida Serrato Unavailable Reason for Visit * Reason Comments Med Refill Encounter Details Date Type Department Care Team (Late st Contact Info) Description 08/09/[address] [facility] MEDICINE [address] [place], [place] [phone] Yahir Hickman MD 230 [place], [place] [phone] Social History Tobacco Use Types Packs/Day Years [...] the past 12 months, has t he [employer], gas, oil or water company threatened to [...] AM EDT Office Visit [facility] ADULT DENTAL [address] [place] [address] Derek Gomes, DONTRELL 230 [place] [address] 02/11/2025 9:00 AM EDT Clinical Support [facility] MEDICINE [address] [place] [address] Angeline Bond, SALINA 505 [place] [address] 02/25/2025 11:30 AM EST Office Visit [address] [address] Eric Muñoz MD [address] [place] [address] documented as of this encounter Goals Goal Patient Goal Type Associated Problems Recent Progress Patient-Stated? Author Smoking cessation General Dari Bravo, SusieD documented as of this encounter Visit Diagnoses Not on filedocumented in this encounter Additional Health Concerns Assessment Noted Time PHQ-9 Depression Total Score: 3 02/13/20 23 10:59 AM EDT documented as of this encounter Care Teams Teacher Advisor Relationship Specialty Start Date End Date Hazel Hu MD [address] [place] [address] PCP - General Internal Medicine 01/08/23 Leonora Michel, SALINA [address] [place] [address] Registered Nurse Family Medicine 09/08/24 Nelida Serrato 09/08/24 documented as of this encounter
--- OUTSIDE RECORDS SUMMARY | 2025-01-13 09:13 | XMS_ITS | Encounter Summary ---
Author Organization [employer] Address 75 [facility] 7t [place] [address] Care Team Providers Care Exploration Driller Name Role Phone Hazel Hu MD Primary Care Pro vider Leonora Michel RN Unavailable [phone] Nelida Serrato Unavailable Encounter Details Date Type Department Care Team ([facility] Contact Info) Description 12/06/2024 Results Follow-Up [facility] [address] [place] [address] Hazel Hu MD 230 [place], [place] [phone] CT Lung Screening Low dose Social History [...] Office Visit [facility] ADULT DENTAL [address] [place] [address] Derek Gomes, DMD [address] [place] [address] 02/11/2025 9:00 AM EDT Clinical Support [facility] [address] [place] [address] Angeline Bond RN 505 [place] [address] 02/25/2025 11:30 AM EST Office Visit [facility] [address] [place] [address] Eric Muñoz MD 230 [place] [address] documented as of this encounter Goals Goal Patient Goal Type Associated Problems Recent Progress Patient-Stated? Author Smoking cessation General Dari Bravo, PharmD documented as of this encounter Visit Diagnoses Not on filedocumented in this encounter Additional Health Concerns Assessment Noted Time PHQ-9 Depression Total Score: 0 09/04/19 1:01 PM EDT documented as of this encounter Care Teams Exploration Driller Relationship Specialty Start Date End Date Hazel Hu MD [address] [place] [address] PCP - General Internal Medicine 01/08/23 Leonora Michel RN [address] [place] [address] Registered Nurse Family Medicine 09/08/24 Nelida Serrato 09/08/24 documented as of this encounter
--- OUTSIDE RECORDS SUMMARY | 2025-01-13 09:13 | XMS_ITS | Encounter Summary ---
Author Organization [employer] Address 75 [facility] 7t [place] [address] Care Team Providers Care Barrel Builder Name Role Phone Hazel Hu MD Primary Care Pro vider Leonora Michel RN Unavailable [phone] Nelida Serrato Unavailable Encounter Details Date Type Department Care Team ([facility] Contact Info) Description 01/14/2024 Orders Only [facility] 230 [place] [address] Kacie Hutchison MD 230 [place], [place] [phone] Social History Tobacco Use Types Packs/Day Years [...] Description 01/13/2025 10:00 AM EDT Office Visit [facility] [address] [place] [address] Derek Gomes, DMD 230 [place] [address] 02/11/2025 9:00 AM EDT Clinical Support [facility] [address] [place] [address] Angeline Bond RN 505 [place] [address] 02/25/2025 11:30 AM EST Office Visit [facility] [address] [place] [address] Eric Muñoz MD 230 [place] [address] documented as of this encounter Goals Goal Patient Goal Type Associated Problems Recent Progress Patient-Stated? Author Smoking cessation General No Dari Simmons, PharmD documented as of this encounter Visit Diagnoses Not on filedocumented in this encounter Additional Health Concerns Assessment Noted Time PHQ-9 Depression Total Score: 3 02/13/20 23 10:59 AM EDT documented as of this encounter Care Teams Barrel Builder Relationship Specialty Start Date End Date Hazel Hu MD [address] [place] [address] PCP - General Internal Medicine 01/08/23 Leonora Michel, SALINA [address] [place] [address] Registered Nurse Family Medicine 09/08/24 Nelida Serrato 09/08/24 documented as of this encounter
--- OUTSIDE RECORDS SUMMARY | 2025-01-13 09:13 | XMS_ITS | Encounter Summary ---
Author Organization [employer] Address 75 [facility] 7t [place] [address] Care Team Providers Care Communications Lead Name Role Phone Hazel Hu MD Primary Care Pro vider Leonora Michel RN Unavailable [phone] Nelida Serrato Unavailable Reason for Visit * Reason Comments Med Refill Encounter Details Date Type Department Care Team (Late st Contact Info) Description 10/02/2023 Refill [facility] 230 [place] [address] Hazel Hu MD 230 [place], [place] [phone] Lumbago with sciatica, left side Social History [...] Description 01/13/2025 10:00 AM EDT Office Visit [facility] ADULT DENTAL [address] [place] [address] Derek Gomes, DONTRELL 230 [place] [address] 02/11/2025 9:00 AM EDT Clinical Support [facility] [address] [place] [address] 34[address] Angeline Bond RN 505 [place] [address] 02/25/2025 11:30 AM EST Office Visit [facility] [address] [place] [address] Eric Muñoz MD 230 [place] [address] documented as of this encounter Goals Goal Patient Goal Type Associated Problems Recent Progress Patient-Stated? Author Smoking cessation General No Dari Simmons, SusieD documented as of this encounter Visit Diagnoses Diagnosis Lumbago with sciatica, left side documented in this encounter Additional Health Concerns Assessment Noted Time PHQ-9 Depression Total Score: 3 02/13/20 23 10:59 AM EDT documented as of this encounter Care Teams Communications Lead Relationship Specialty Start Date End Date Hazel Hu MD [address] [place] [address] PCP - General Internal Medicine 01/08/23 Leonora Michel RN [address] [place] [address] Registered Nurse Family Medicine 09/08/24 Nelida Serrato 09/08/24 documented as of this encounter
--- OUTSIDE RECORDS SUMMARY | 2025-01-13 09:13 | XMS_ITS | Encounter Summary ---
Author Organization [employer] Address 75 [facility] 7t [place] [address] Care Team Providers Care Molder Apprentice Name Role Phone Hazel Hu MD Primary Care Pro vider Leonora Michel RN Unavailable [phone] Nelida Serrato Unavailable Reason for Visit * Reason Comments Med Refill Encounter Details Date Type Department Care Team (Late st Contact Info) Description 05/25/[address] [facility] 230 [place] [address] Hazel Hu MD 230 [place], [place] [phone] Annual physical exam Social History Tobacco Use [...] the past 12 months, has t he [employer], gas, oil or water company threatened to [...] Description 01/13/2025 10:00 AM EDT Office Visit [facility] ADULT DENT[facility] [address] [place] [address] Derek Gomes, DONTRELL 230 [place] [address] 02/11/2025 9:00 AM EDT Clinical Support [facility] [address] [place] [address] Angeline Bond, SALINA 505 [place] [address] 02/25/2025 11:30 AM EST Office Visit [address] [address] Eric Muñoz MD 230 [place] [address] documented as of this encounter Goals Goal [...] documented as of this encounter Care Teams Molder Apprentice Relationship Specialty Start Date End Date Hazel Hu MD [address] [place] [address] PCP - General Internal Medicine 01/08/23 Leonora Michel RN [address] [place] [address] 16[address] Registered Nurse Family Medicine 09/08/24 Nelida Serrato 09/08/24 documented as of this encounter
--- OUTSIDE RECORDS SUMMARY | 2025-01-13 09:13 | XMS_ITS | Encounter Summary ---
Author Organization [employer] Address 75 [facility] 7t [place] [address] Care Team Providers Care Quality Internship Name Role Phone Hazel Hu MD Primary Care Pro vider Leonora Michel RN Unavailable [phone] Nelida Serrato Unavailable Reason for Visit * Reason Comments Med Refill Encounter Details Date Type Department Care Team (Late st Contact Info) Description 01/11/2025 Refill [facility] 230 [place], [place] [phone] Yahir Hickman MD 230 [place], [place] [phone] Social History Tobacco Use Types Packs/Day Years [...] the past 12 months, has t he [employer], gas, oil or water company threatened to [...] Description 01/13/2025 10:00 AM EDT Office Visit [facility]ULT D[facility] [address] [place] [address] Derek Gomes, DONTRELL 230 [place] [address] 02/11/2025 9:00 AM EDT Clinical Support [facility] [address] [place] [address] Angeline Bond, SALINA 505 [place] [address] 02/25/2025 11:30 AM EST Office Visit [address] [address] Eric Muñoz MD [address] [place] [address] documented as of this encounter Goals Goal Patient Goal Type Associated Problems Recent Progress Patient-Stated? Author Smoking cessation General Dari Bravo, PharmD documented as of this encounter Visit Diagnoses Not on filedocumented in this encounter Additional Health Concerns Assessment Noted Time PHQ-9 Depression Total Score: 0 09/04/19 1:01 PM EDT documented as of this encounter Care Teams Quality Internship Relationship Specialty Start Date End Date Hazel Hu MD [address] [place] [address] PCP - General Internal Medicine 01/08/23 Leonora Michel, SALINA [address] [place] [address] Registered Nurse Family Medicine 09/08/24 Nelida Serrato 09/08/24 documented as of this encounter
--- OUTSIDE RECORDS SUMMARY | 2025-01-13 09:13 | XMS_ITS | Encounter Summary ---
Author Organization [employer] Address 75 [facility] 7t [place] [address] Care Team Providers Care Customer Service Cashier Name Role Phone Hazel Hu MD Primary Care Pro vider Leonora Michel RN Unavailable [phone] Nelida Serrato Unavailable Encounter Details Date Type Department Care Team ([facility] st Contact Info) Description 05/20/[address] [facility] 230 [place], [place] [phone] Jaqueline Davis, ANP 230 [place], [place] [phone] Social History Tobacco Use Types Packs/Day Years [...] 01/13/2025 10:00 AM EDT Office Visit [facility] ADULT DENT[facility] [address] [place] [address] Derek Gomes, DMD 230 [place] [address] 02/11/2025 9:00 AM EDT Clinical Support [facility] [address] [place] [address]793 Angeline Bond RN 505 [place] [address] 02/25/2025 11:30 AM EST Office Visit [facility] [address] [place] [address] Eric Muñoz MD 230 [place] [address] documented as of this encounter Goals Goal Patient Goal Type Associated Problems Recent Progress Patient-Stated? Author Smoking cessation General No Dari Simmons, PharmD documented as of this encounter Visit Diagnoses Not on filedocumented in this encounter Additional Health Concerns Assessment Noted Time PHQ-9 Depression Total Score: 3 02/13/20 23 10:59 AM EDT documented as of this encounter Care Teams Customer Service Cashier Relationship Specialty Start Date End Date Hazel Hu MD [address] [place] [address] PCP - General Internal Medicine 01/08/23 Leonora Michel, SALINA [address] [place] [address] Registered Nurse Family Medicine 09/08/24 Nelida Serrato 09/08/24 documented as of this encounter
--- OUTSIDE RECORDS SUMMARY | 2025-01-13 09:13 | XMS_ITS | Encounter Summary ---
Author Organization [employer] Address 75 [facility] 7t [place] [address] Care Team Providers Care Stock And Station Agent Name Role Phone Hazel Hu MD Primary Care Pro vider Leonora Michel RN Unavailable [phone] Nelida Serrato Unavailable Reason for Visit * Reason Comments Med Refill Encounter Details Date Type Department Care Team (Late st Contact Info) Description 08/19/2024 Refill [facility] 230 [place], [place] [phone] Yahir Hickman MD 230 [place], [place] [phone] Social History Tobacco Use Types Packs/Day Years [...] the past 12 months, has t he [employer], gas, oil or water company threatened to [...] Description 01/13/2025 10:00 AM EDT Office Visit [facility] [address] [place] [address] Derek Gomes, DONTRELL 230 [place] [address] 02/11/2025 9:00 AM EDT Clinical Support [facility] [address] [place] [address] Angeline Bond, SALINA 505 [place] [address] 02/25/2025 11:30 AM EST Office Visit [address] [address] Eric Muñoz MD [address] [place] [address] documented as of this encounter Goals Goal Patient Goal Type Associated Problems Recent Progress Patient-Stated? Author Smoking cessation General Dari Bravo, SusieD documented as of this encounter Visit Diagnoses Not on filedocumented in this encounter Additional Health Concerns Assessment Noted Time PHQ-9 Depression Total Score: 3 02/13/20 23 10:59 AM EDT documented as of this encounter Care Teams Stock And Station Agent Relationship Specialty Start Date End Date Hazel Hu MD [address] [place] [address] PCP - General Internal Medicine 01/08/23 Leonora Michel, SALINA [address] [place] [address] Registered Nurse Family Medicine 09/08/24 Nelida Serrato 09/08/24 documented as of this encounter
--- OUTSIDE RECORDS SUMMARY | 2025-01-13 09:13 | XMS_ITS | Encounter Summary ---
Author Organization [employer] Address 75 [facility] 7t [place] [address] Care Team Providers Care Crime Investigator Special Agent Name Role Phone Hazel Hu MD Primary Care Pro vider Leonora Michel RN Unavailable [phone] Nelida Serrato Unavailable Reason for Visit * Reason Comments Med Refill Encounter Details Date Type Department Care Team (Late st Contact Info) Description 09/20/2024 Refill [facility] 230 [place] [address] Hazel Hu MD 230 [place], [place] [phone] Social History Tobacco Use Types Packs/Day Years [...] the past 12 months, has t he [employer], gas, oil or water company threatened to [...] 10:00 AM EDT Office Visit [facility] ADULT DENT[facility] [address] [place] [address] Derek Gomes, DONTRELL 230 [place] [address] 02/11/2025 9:00 AM EDT Clinical Support [facility] [address] [place] [address] 16163 Angeline Bond RN 505 [place] [address] 02/25/2025 11:30 AM EST Office Visit [address] [address] Eric Muñoz MD 230 [place] [address] documented as of this encounter Goals Goal Patient Goal Type Associated Problems Recent Progress Patient-Stated? Author Smoking cessation General No Simmons, Dari, SusieD documented as of this encounter Visit Diagnoses Not on filedocumented in this encounter Additional Health Concerns Assessment Noted Time PHQ-9 Depression Total Score: 0 09/04/19 25 1:01 PM EDT documented as of this encounter Care Teams Crime Investigator Special Agent Relationship Specialty Start Date End Date Hazel Hu MD [address] [place] [address] [phone] PCP - General Internal Medicine 01/08/23 Leonora Michel, SALINA [address] [place] [address] Registered Nurse Family Medicine 09/08/24 Nelida Serrato 09/08/24 documented as of this encounter
--- OUTSIDE RECORDS SUMMARY | 2025-01-13 09:13 | XMS_ITS | Encounter Summary ---
Author Organization [employer] Address 75 [facility] 7t [place] [address] Care Team Providers Care Global Account Executive Name Role Phone Christa Banegas CHAPLAINCY Primary Care Provider Anna Hazel Hanson MD Primary Care Pro vider Leonora Michel RN Unavailable [phone] Nelida Serrato Unavailable Reason for Visit * Reason Onset Date Comments Appointment Request 06/18/2022 Encounter Details Date Type Department Care Team (Late st Contact Info) Description 06/18/2022 Telephone [facility] 230 [place] [address] Christa Banegas FNP Appointment Request Social History Tobacco Use Types Packs/Day Years Used Date Smoking Tobacco: Every Day Cigarettes 1.5 53.8 Started: 1969 Smokeless Tobacco: Current Alcohol Use [...] no answer. L/M reminding he NCNS for INSIDE SALES ACCOUNT EXECUTIVE initial appt on 04/25/22 and now is cancelling his INSIDE SALES ACCOUNT EXECUTIVE initial appt 06/25/22. Left # for him to call and reschedule. Will update PCP. * Telephone Encounter - Randall Jones - 06/18/2022 12:36 PM EST Tc from pt requesting to r/s appt on 06-25-22 ( Initial INSIDE SALES ACCOUNT EXECUTIVE ) documented in this encounter Plan of Treatment Upcoming Encounters Date Type Department Care Team ([facility] st Contact Info) Description 01/13/2025 10:00 AM EDT Office Visit [facility] ADULT DENTAL [address] [place] [phone] Derek Gomes, DMD [address] [place] [address] 02/11/2025 9:00 AM EDT Clinical Support [facility] [address] [place] [address] Angeline Bond RN 505 [place] [address] 02/25/2025 11:30 AM EST Office Visit [address] [address] Eric Muñoz MD [address] [place] [address] documented as of this encounter Visit Diagnoses Not on filedocumented in this encounter Care Teams Global Account Executive Relationship Specialty Start Date End Date Christa Banegas FNP PCP - General Family Medicine 12/06/21 01/07/23 Hazel Hu MD [address] [place] [address] PCP - General Internal Medicine 01/08/23 Leonora Michel, SALINA [address] [place] [address] [place] [address] Registered Nurse Family Medicine 09/08/24 Nelida Serrato 09/08/24 documented as of this encounter
--- OUTSIDE RECORDS SUMMARY | 2025-01-13 09:13 | XMS_ITS | Encounter Summary ---
Author Organization [employer] Address 75 [facility] 7t [place] [address] Care Team Providers Care Reject Opener And Filler Name Role Phone Hazel Hu MD Primary Care Pro vider Leonora Michel RN Unavailable [phone] Nelida Serrato Unavailable Reason for Visit * Reason Comments Med Refill Encounter Details Date Type Department Care Team (Late st Contact Info) Description 06/04/2024 Refill [facility] 230 [place] [address] Hazel Hu MD 230 [place], [place] [phone] Social History Tobacco Use Types Packs/Day Years [...] the past 12 months, has t he [employer], gas, oil or water company threatened to [...] Description 01/13/2025 10:00 AM EDT Office Visit [facility] ADULT DENTAL [address] [place] [address] Derek Gomes, DONTRELL 230 [place] [address] 02/11/2025 9:00 AM EDT Clinical Support [facility] [address] [place] [address] Angeline Bond RN 505 [place] [address] 02/25/2025 11:30 AM EST Office Visit [address] [address] Eric Muñoz MD 230 [place] [address] documented as of this encounter Goals Goal Patient Goal Type Associated Problems Recent Progress Patient-Stated? Author Smoking cessation General No Simmons, Dari, SusieD documented as of this encounter Visit Diagnoses Not on filedocumented in this encounter Additional Health Concerns Assessment Noted Time PHQ-9 Depression Total Score: 3 02/13/20 23 10:59 AM EDT documented as of this encounter Care Teams Reject Opener And Filler Relationship Specialty Start Date End Date Hazel Hu MD [address] [place] [address] [phone] PCP - General Internal Medicine 01/08/23 Leonora Michel, SALINA [address] [place] [address] Registered Nurse Family Medicine 09/08/24 Nelida Serrato 09/08/24 documented as of this encounter
--- OUTSIDE RECORDS SUMMARY | 2025-01-13 09:13 | XMS_ITS ---
Author Organization [employer] Address 75 [facility] 7t [place] [address] Care Team Providers Care Oil Heater Operator Name Role Phone Hazel Hu MD Primary Care Pro vider Leonora Michel RN Unavailable [phone] Nelida Serrato Unavailable CM Complex Status:Outreach In Progress (Enrolling) Start date:09/08/2024 Enrollment reason:Referred by provider Overview PCP Referral- PT needs help with apts Case Team Name Relationship Phone Leonora Michel RN(Responsible Staff) Registered Nurse [phone] Continued Care and Services Coordination
--- OUTSIDE RECORDS SUMMARY | 2025-01-13 09:13 | XMS_ITS | Encounter Summary ---
Author Organization [employer] Address 75 [facility] 7t [place] [address] Care Team Providers Care Service Order Clerk Name Role Phone Hazel Hu MD Primary Care Pro vider Leonora Michel RN Unavailable [phone] Neldia Serrato Unavailable Reason for Visit * Reason Comments Med Refill Encounter Details Date Type Department Care Team (Late st Contact Info) Description 12/29/2024 Refill [facility] 230 [place] [address] Hazel Hu MD 230 [place], [place] [phone] Social History Tobacco Use Types Packs/Day Years [...] the past 12 months, has t he [employer], gas, oil or water company threatened to [...] Description 01/13/2025 10:00 AM EDT Office Visit [facility] ADULT DENT[facility] [address] [place] [address] Derek Gomes, DONTRELL 230 [place] [address] 02/11/2025 9:00 AM EDT Clinical Support [facility] [address] [place] [address] Angeline Bond, SALINA 505 [place] [address] 02/25/2025 11:30 AM EST Office Visit [facility] [address] [place] [address] Eric Muñoz MD 230 [place] [address] documented as of this encounter Goals Goal Patient Goal Type Associated Problems Recent Progress Patient-Stated? Author Smoking cessation General No Simmons, Dari, SusieD documented as of this encounter Visit Diagnoses Not on filedocumented in this encounter Additional Health Concerns Assessment Noted Time PHQ-9 Depression Total Score: 0 09/04/19 25 1:01 PM EDT documented as of this encounter Care Teams Service Order Clerk Relationship Specialty Start Date End Date Hazel Hu MD [address] [place] [address] [phone] PCP - General Internal Medicine 01/08/23 Leonora Michel, SALINA [address] [place] [address] Registered Nurse Family Medicine 09/08/24 Nelida Serrato 09/08/24 documented as of this encounter
--- OUTSIDE RECORDS SUMMARY | 2025-01-13 09:13 | XMS_ITS | Encounter Summary ---
Author Organization [employer] Address 75 [facility] 7t [place] [address] Care Team Providers Care Criminal Investigator Name Role Phone Hazel Hu MD Primary Care Pro vider Leonora Michel RN Unavailable [phone] Nelida Serrato Unavailable Reason for Visit * Reason Onset Date Comments Med Refill 01/14/2024 Encounter Details Date Type Department Care Team ([facility] st Contact Info) Description 01/14/2024 Telephone [facility] 230 [place] [address] Hazel Hu MD 230 [place] [address] Med Refill Social History Tobacco Use Types [...] 50 MG tablet To be sent to: [facility] - [place], [place] - [address] [facility] documented in this encounter Plan of Treatment Upcoming Encounters Date Type Department Care Team (Late st Contact Info) Description 01/13/2025 10:00 AM EDT Office Visit [facility]ULT [facility] [address] [place] [address] Derek Gomes, DMD 230 [place] [address] 02/11/2025 9:00 AM EDT Clinical Support [facility] [address] [place] [address] Angeline Bond RN 505 [place], [place] [phone] 02/25/2025 11:30 AM EST Office Visit [address] [address] Eric Muñoz MD 230 [place] [address] documented as of this encounter Goals Goal Patient Goal Type Associated Problems Recent Progress Patient-Stated? Author Smoking cessation General Dari Bravo, SusieD documented as of this encounter Visit Diagnoses Not on filedocumented in this encounter Additional Health Concerns Assessment Noted Time PHQ-9 Depression Total Score: 3 02/13/20 23 10:59 AM EDT documented as of this encounter Care Teams Criminal Investigator Relationship Specialty Start Date End Date Hazel Hu MD 230 [place] [address] PCP - General Internal Medicine 01/08/23 Leonora Michel RN 505 [place], [place] [phone] Registered Nurse Family Medicine 09/08/24 Nelida Serrato 09/08/24 documented as of this encounter
--- OUTSIDE RECORDS SUMMARY | 2025-01-13 09:13 | XMS_ITS | Encounter Summary ---
Author Organization [employer] Address 75 [facility] 7t [place] [address] Care Team Providers Care Seat Scooper Machine Name Role Phone Hazel Hu MD Primary Care Pro vider Leonora Michel RN Unavailable [phone] Nelida Serrato Unavailable Reason for Visit * Reason Comments Med Refill Encounter Details Date Type Department Care Team (Late st Contact Info) Description 07/27/2024 Refill [facility] [address] [place], [place] [phone] Kacie Hutchison MD 230 [place] [address] Lumbago with sciatica, left side Social History [...] 01/13/2025 10:00 AM EDT Office Visit [facility] ADULT D[facility] [address] [place] [phone] Derek Gomes, DONTRELL [address] [place] [address] 02/11/2025 9:00 AM EDT Clinical Support [facility] MED[facility]INE [address] [place] [address] Angeline Bond RN 505 [place] [address] 02/25/2025 11:30 AM EST Office Visit [facility] [address] [place] [address] Eric Muñoz MD [address] [place] [address] documented as of this encounter Goals Goal Patient Goal Type Associated Problems Recent Progress Patient-Stated? Author Smoking cessation General Dari Bravo, PharmD documented as of this encounter Visit Diagnoses Diagnosis Lumbago with sciatica, left side documented in this encounter Additional Health Concerns Assessment Noted Time PHQ-9 Depression Total Score: 3 02/13/20 10:59 AM EDT documented as of this encounter Care Teams Seat Scooper Machine Relationship Specialty Start Date End Date Hazel Hu MD [address] [place] [address] PCP - General Internal Medicine 01/08/23 Leonora Michel RN [address] [place] [address] Registered Nurse Family Medicine 09/08/24 Nelida Serrato 09/08/24 documented as of this encounter
--- OUTSIDE RECORDS SUMMARY | 2025-01-13 09:13 | XMS_ITS | Encounter Summary ---
Author Organization [employer] Address 75 [facility] 7t [place] [address] Care Team Providers Care Documentation Lead Name Role Phone Hazel Hu MD Primary Care Pro vider Leonora Michel RN Unavailable [phone] Nelida Serrato Unavailable Reason for Visit * Reason Comments Med Refill Encounter Details Date Type Department Care Team (Late st Contact Info) Description 05/25/2024 Refill [facility] CHC MED & PEDS [address] [place], [place] [phone] Hazel Hu MD [address] [place], [place] [phone] Annual physical exam Social History Tobacco Use [...] 10:00 AM EDT Office Visit [facility] ADULT DENTAL [address] [place] [phone] Derek Gomes, DONTRELL 230 [place] [address] 02/11/2025 9:00 AM EDT Clinical Support [facility] MEDICINE [address] [place] [phone] Angeline Bond, SALINA 505 [place] [address] 02/25/2025 11:30 AM EST Office Visit [address] [address] Eric Muñoz MD 230 [place] [address] documented as of this encounter Goals Goal [...] documented as of this encounter Care Teams Documentation Lead Relationship Specialty Start Date End Date Hazel Hu MD [address] [place] [address] [phone] PCP - General Internal Medicine 01/08/23 Leonora Michel RN [address] [place] [address] Registered Nurse Family Medicine 09/08/24 Nelida Serrato 09/08/24 documented as of this encounter
--- OUTSIDE RECORDS SUMMARY | 2025-01-13 09:13 | XMS_ITS | Encounter Summary ---
Author Organization [employer] Address 75 [facility] 7t [place] [address] Care Team Providers Care Billing Specialist Name Role Phone Hazel Hu MD Primary Care Pro vider Leonora Michel RN Unavailable [phone] Nelida Serrato Unavailable Reason for Visit * Reason Onset Date Comments Appointment Request 07/09/2024 Encounter Details Date Type Department Care Team ([facility] st Contact Info) Description 07/09/2024 Telephone [facility] MEDICINE 230 [place] [address] Hazel Hu MD 230 [place] [address] Appointment Request Social History Tobacco Use Types [...] 10:00 AM EDT Office Visit [facility] ADULT DENTAL 230 [place] [address] Derek Gomes, DONTRELL 230 [place] [address] 02/11/2025 9:00 AM EDT Clinical Support [facility] MEDICINE 230 [place] [address] Angeline Bond, SALINA 505 [place] [address] 02/25/2025 11:30 AM EST Office Visit [facility] MEDICINE 230 [place] [address] Eric Muñoz MD [address] [place] [address] [phone] documented as of this encounter Goals Goal Patient Goal Type Associated Problems Recent Progress Patient-Stated? Author Smoking cessation General Dari Bravo, PharmD documented as of this encounter Visit Diagnoses Not on filedocumented in this encounter Additional Health Concerns Assessment Noted Time PHQ-9 Depression Total Score: 3 02/13/20 10:59 AM EDT documented as of this encounter Care Teams Billing Specialist Relationship Specialty Start Date End Date Hazel Hu MD [address] [place] [address] [phone] PCP - General Internal Medicine 01/08/23 Leonora Michel RN [address] [place] [phone] Registered Nurse Family Medicine 09/08/24 Nelida Serrato 09/08/24 documented as of this encounter
--- OUTSIDE RECORDS SUMMARY | 2025-01-13 09:13 | XMS_ITS | Encounter Summary ---
Author Organization [employer] Address 75 [facility] 7t [place] [address] Care Team Providers Care Chief General Pediatric Clinic Name Role Phone Hazel Hu MD Primary Care Pro vider Leonora Michel RN Unavailable [phone] Nelida Serrato Unavailable Reason for Visit * Reason Onset Date Comments Med Refill 01/14/2024 Encounter Details Date Type Department Care Team ([facility] st Contact Info) Description 01/14/2024 Telephone [facility] MEDICINE 230 [place] [address] Hazel Hu MD 230 [place] [address] Med Refill Social History Tobacco Use Types [...] 50 MG tablet To be sent to: [facility] - [place], [place] - [address] [place] [address] documented in this encounter Plan of Treatment Upcoming Encounters Date Type Department Care Team ([facility] st Contact Info) Description 01/13/2025 10:00 AM EDT Office Visit [facility] ADULT DENTAL 230 [place] [address] Derek Gomes, DONTRELL 230 [place] [address] 02/11/2025 9:00 AM EDT Clinical Support [facility] MEDICINE 230 [place] [address] McMAngeline melgar RN 505 [place] [address] 02/25/2025 11:30 AM EST Office Visit [facility] MEDICINE 230 [place], [place] [phone] Eric Muñoz MD 230 [place], [place] [phone] documented as of this encounter Goals Goal Patient Goal Type Associated Problems Recent Progress Patient-Stated? Author Smoking cessation General Dari Bravo, PharmD documented as of this encounter Visit Diagnoses Not on filedocumented in this encounter Additional Health Concerns Assessment Noted Time PHQ-9 Depression Total Score: 3 02/13/20 10:59 AM EDT documented as of this encounter Care Teams Chief General Pediatric Clinic Relationship Specialty Start Date End Date Hazel Hu MD 230 [place], [place] [phone] PCP - General Internal Medicine 01/08/23 Leonora Michel RN 505 [place] [address] Registered Nurse Family Medicine 09/08/24 Nelida Serrato 09/08/24 documented as of this encounter
--- OUTSIDE RECORDS SUMMARY | 2025-01-13 09:13 | XMS_ITS | Clinical Summary ---
Author Organization [employer] Address 75 [facility] 7t [place] [address] Care Team Providers Care Cage Unloader Name Role Phone Hazel Hu MD Primary Care Pro vider Leonora Michel RN Unavailable [phone] Nelida Serrato Unavailable Allergies Active Allergy [...] Type Department Care Team Description 01/11/2025 Refill [facility] MEDICINE [address] [place] [address] Yahir Hickman MD 01/10/2025 9:00 AM EDT Office Visit [facility] ADULT DENTAL 230 [place] [address] Derek Gomes DMD 12/29/2024 Refill [facility] MEDICINE 230 [place] [address] Hazel Hu MD 12/10/2024 9:30 AM EDT Clinical Support [facility] 230 [place] [address] Angeline Bond RN Low back pain, unspecified back pain laterality, unspecified chronicity, unspecified whether sciatica present (Primary Dx) 12/10/2024 Travel 12/06/2024 Results Follow-Up [address] [address] Lung Screening Low dose 12/06/2024 Orders Only [facility] External Provider, [facility] 12/06/2024 Refill [facility] MEDICINE [address] [place] [address] Yahir Hickman MD 11/30/2024 Patient Outreach [address] [address] Hazel Hu MD Care Coordination (CM/CHW outreach) 11/22/[address] [address] Hazel Hu MD Chronic neck pain; Left shoulder pain, unspecified chronicity 11/08/2024 Telephone [facility] MEDICINE [address] [place] [address] Hazel Hu MD sep recall 11/03/2024 Results Follow-Up [facility] WALK-IN CENTER [address] [place] [address] Hazel Hu MD US Abdomen Complete 11/03/2024 Orders Only [facility] WALK-IN CENTER [address] [place] [address] Hazel Hu MD Abnormal finding on imaging of liver (Primary Dx) 11/01/2024 1:00 PM EDT Office Visit [facility] MEDICINE [address] [place] [address] Hazel Hu MD Transaminitis (Primary Dx); Tobacco use; Mild chronic obstructive pulmonary disease (CMS/HCC); Low back pain, unspecified back pain laterality, unspecified chronicity, unspecified whether sciatica present; Chronic neck pain; Health care maintenance; Essential hypertension 11/01/2024 Results Follow-Up [facility] MEDICINE [address] [place] [address] Hazel Hu MD Comprehensive Metabolic Panel 11/01/2024 Travel 10/29/2024 Telephone [facility] MEDICINE [address] [place] [address] Hazel Hu MD Chart Prep 10/27/2024 Patient Outreach [address] [phone] Hazel Hu MD Care Coordination (CM/CHW outreach) 10/18/2024 Refill [facility] CHC MED & PEDS [address] [place], [place] [phone] Kacie Hutchison MD 10/13/2024 Refill [facility] MEDICINE [address] [place], [place] [phone] Hazel Hu MD Chronic neck pain; Left [...] 10:00 AM EDT Office Visit [facility] ADULT DENTAL [address] [place] [address] Derek Gomes, DONTRELL 230 [place] [address] 02/11/2025 9:00 AM EDT Clinical Support [facility] MED[facility]INE [address] [place] [address] Angeline Bond, RN 505 [place] [address] 02/25/2025 11:30 AM EST Office Visit [facility] MEDICINE [address] [place] [address] Eric Muñoz MD 230 [place] [address] Health Maintenance Due Date Last Done Comments [...] - 12/10/2024 9:18 AM EDT .UTOX cup Lot#[id number] Exp. 01/18/26 Internal Pass Control Hazel Rojas MD POINT OF CARE NATALIE T ENTER/EDIT ORDERABLES Final Result * CT Lung Screening Low dose (12/06/2024 12:52 PM EDT) Anatomical Region Laterality Modality Lung Computed Tomogra phy 12/06/2024 12:5 2 PM EDT Narrative 12/06/2024 1:20 PM EDT [place] [address] CT Scan Report Signed Patient: Jb Rubio MR#: [id number] : 1960 Acct:[id number] Age/Sex: 64 / M ADM Date: 12/06/24 Loc: .CT Attending Dr: Lisbeth Sahni PA-C Ordering Physician: Lisbeth Sahni PA-C Date of Service: 12/06/24 Procedure(s): CT lung screening Accession Number(s): [id number] cc: Lisbeth Shani PA-C; Hazel Hu MD Report Number: [id number]: Total DLP = 49.00 mGy-cm EXAMINATION: CT [...] for CT CHEST LOW DOSE CANCER SCREENING ([id number]) can be placed. Electronically signed by: Chu Haddad MD 12/06/2024 01:17 PM EDT Dictated By: Chu Haddad MD Signed By: <Electronically signed by Chu Haddad MD in OV> 12/06/24 1317 DD/ 1252 TD/TT: 12/06/24 1304 Laser Beam Trim Operator: Procedure Note Donotuseinterpreter, Image - 12/06/[address] [address] [address] Scan Report Signed Patient: Jb Rubio AMR#: [id number] : 1960cct:[id number] Age/Sex: 64 / MADM Date: 12/06/24 Loc: .CT Attending Dr: Lisbeth Sahni PA-C Ordering Physician: Lisbeth Sahni PA-C Date of Service: 12/06/24 Procedure(s): CT lung screening Accession Number(s): [id number] cc: Lisbeth Sahni PA-C; Hazel Hu MD Report Number: [id number]: Total DLP = 49.00 mGy-cm EXAMINATION: CT [...] for CT CHEST LOW DOSE CANCER SCREENING ([id number]) can be placed. Electronically signed by: Chu Haddad MD 12/06/2024 01:17 PM EDT RP Dictated By: Chu Haddad MD Signed By: <Electronically signed by Chu Haddad MD in OV> 12/06/24 1317 DD/ 1252 TD/TT: 12/06/24 1304 Laser Beam Trim Operator: [facility] External Provider IMG CT PROCEDURES Final Result * US Abdomen Complete (11/03/2024 10:36 AM EDT) Anatomical Region Laterality Modality Abdomen Ultrasound 11/03/2024 10:3 6 AM EDT Narrative 11/03/2024 10:38 AM EDT [place] [address] Ultrasound Report Signed with Addenda Patient: Jb Rubio MR#: [id number] : 1960 Acct:[id number] Age/Sex: 64 / M ADM Date: 11/02/24 Loc: HO.US Attending Dr: Hazel Rojas MD Ordering Physician: Hazel Hu MD Date of Service: 11/02/24 Procedure(s): US abdomen complete Accession Number(s): [id number] cc: Hazel Hu MD ADDENDUM This document [...] - XR KUB - 04/23/24 00:39 EST US/LA/SR - US RETROPERITONEUM LIMITED - 06/13/22 16:28 [...] OV> 11/03/24 1037 DD/ 35 TD/TT: 11/03/241035 Laser Beam Trim Operator: Procedure Note Donsavannater, Image - 11/03/2024 [place] [address] Ultrasound Report Signed with Addenda Patient: Jb Rubio [facility]#: [id number] : [id number]:[id number] Age/Sex: 64 / MADM Date: 11/02/24 Loc: HO.US Attending Dr: Hazel Rojas MD Ordering Physician: Hazel Hu MD Date of Service: 11/02/24 Procedure(s): US abdomen complete Accession Number(s): [id number] cc: Hazel Hu MD ADDENDUM This document [...] - XR KUB - 04/23/24 00:39 EST US/LA/SR - US RETROPERITONEUM LIMITED - 06/13/22 16:28 [...] 11/03/24 1037 DD/ 1036 TD/TT: 11/03/24 1036 Laser Beam Trim Operator: us Hazel Rojas MD [facility] US PROCEDURES Edited Result - Final * (ABNORMAL) Comprehensive Metabolic Panel (11/01/2024 1:55 PM EDT) Sodium 139 135 - 145 mmol/L [facility] Potassium 4.5 3.3 - 5.1 mmol/L [facility] Chloride 104 96 - 108 mmol/L [facility] Carbon Dioxide 27 22 - 29 mmol/L [facility] Anion Gap 13 12 - 20 [facility] Urea Nitrogen (BUN) 14 9 - 16 mg/dL [facility] Creatinine, Serum 0.91 0.5 - 1.4 mg/dL [facility] Estimated Glomerular Filt Rate >60 [facility] Comment:Chronic Kidney Disea se: Estimated GFR < 60 mL/min/1.50b2Ysmhod Kidney Disease: Estimated GFR < 15 mL/min/1.73m2 Glucose 94 60 - 115 mg/dL [facility] Calcium 9.7 8.4 - 10.2 mg/dL [facility] Bilirubin, Total 0.4 0.0 - 1.0 mg/dL [facility] Aspartate Amino Transferase 47(H) 5 - 37 U/L [facility] Alanine Aminotransferase 37 0 - 40 U/L [facility] Total Protein 7.6 6.5 - 8.0 g/dL [facility] Albumin Level 4.8 3.5 - 5.0 g/dL [facility] Alkaline Phosphatase 75 39 - 117 U/L [facility] Blood Venous blood specimen / Unknown 11/01/2024 1:55 PM EDT 11/01/2024 4:11 PM EDT us Hazel Rojas MD LAB BLOOD ORDERAB LES Final Result [facility] [address] [place] [phone] [phone] * Lipid Panel, Standard (08/17/2024 9:29 AM EDT) Triglycerides 80 <150 mg/dL [facility] Comment:Desirable Triglyceri de: less than 150 mg/dLBorderline High Triglyceride 150-199 mg/dLHigh Triglyceride: 200-499 mg/dLVery High Triglyceride: greater than or equal to 5OO mg/dL Cholesterol 182 <200 mg/dL [facility] Comment:Desirable Cholestero l: less than 200 mg/dLBorderline High Cholesterol: 200-239 mg/dLHigh Cholesterol: greater than 239 mg/dL LDL Cholesterol Calculated 83 <100 mg/dL [facility] Comment:Desirable LDL: less than 100 mg/dLNear Optimal/Above Optimal LDL: 110- 129 mg/dLBorderline High LDL: 130-159 mg/dLHigh LDL: 160-189 mg/dLVery High LDL: greater than or equal to 190 mg/dL HDL Cholesterol 83 >40 mg/dL [facility] Comment:Desirable HDL: great er than 40 mg/dL Note: This HDL assay may give artificially low results in patients with liver disease. Blood Venous blood specimen / Unknown 08/17/2024 9:29 AM EDT 08/17/2024 11:07 AM EDT us Hazel Rojas MD LAB BLOOD ORDERAB LES Final Result Performing Organization Address [facility] Co de Phone Number [facility] [address] [place] [address] [phone] * Hepatitis C Antibody with Reflex to HCV, RNA, Quantitative, Real-Time PCR (02/13/2023 8:25 AM EDT) Hepatitis C Antibody Nonreactive Nonreactive [facility] Comment:Antibodies to HCV no t detected; does not exclude early acuteHCV infection. Blood Venous blood specimen / Unknown 02/13/2023 8:25 AM EDT 02/13/2023 11:12 AM EDT us Hazel Rojas MD LAB BLOOD ORDERAB LES Final Result Performing Organization Address [facility] Co de Phone Number [facility] [address] [place] [phone] * HIV-1/2 Antigen and Antibodies, Fourth Generation, with Reflexes (02/13/2023 8:25 AM EDT) HIV AB/AG Nonreactive Nonreactive [facility] Comment:HIV-1 p24 Ag and/or HIV-1/HIV-2 Ab not detected.A test result that is nonreactive does not exclude thepossibility of exposure to or infection with HIV-1 and/orHIV-2. Nonreactive results in this assay for individualswith prior exposure to HIV-1 and/or HIV-2 may be due toantigen and antibody levels that are below the limit ofdetection of this assay.The [employer] Wave HIV Ag/Ab Combo assay result andsupplemental assay results should be interpreted inconjunction with the patient's clinical presentation,history and other laboratory results. If the results areinconsistent with clinical evidence, additional testing issuggested to confirm the result. Blood Venous blood specimen / Unknown 02/13/2023 8:25 AM EDT 02/13/2023 11:12 AM EDT us Hazel Rojas MD LAB BLOOD ORDERAB LES Final Result Performing Organization Address City/State/[facility] Co de Phone Number [facility] [address] [place] [address] [phone] from Last 3 Months or Most Recently Relevant to Health Maintenance Insurance [facility] C3 DENTAL-[facility] MEDICAID STAND ADULT Care Teams Cage Unloader Relationship Specialty Start Date End Date Hazel Hu MD [address] [place] [phone] PCP - General Internal Medicine 01/08/23 Leonora Michel RN [address] [place] [address] Registered Nurse Family Medicine 09/08/24 Nelida Serrato 09/08/24
[2025-01-13 11:50] LABS: MANUAL DIFF FLAG NO
[2025-01-13 11:58] LABS: Hematocrit 39.3 % (42.0-52.0); Hemoglobin 13.8 g/dl (14.0-18.0); Imm Gran Abs Auto 0.01 X10*3/uL (0.00-0.03); Imm Gran Pct Auto 0.2 % (0.0-0.4); Lymphocytes Absolute Auto 1.4 X10*3/uL (1.2-4.9); Mean Corpuscular HGB Conc 35.1 g/dl (31.0-36.0); Mean Corpuscular Hemoglobin 32.2 pg (27.0-33.0); Mean Corpuscular Volume 91.6 fL (80.0-98.0); NRBC Abs Auto 0.000 X10*3/uL (0.0-0.012); NRBC Pct Auto 0.0 /100WBC (0.0-0.2); Platelet Count 190 X10*3/uL (160-400); Red Blood Count 4.29 X10*6/uL (4.60-5.80); White Blood Count 5.0 X10*3/uL (4.8-10.8)
[2025-01-13 12:06] LABS: INTERNATIONAL NORM RATIO 0.9 (0.9-1.1); Prothrombin Time 9.9 SEC (10.9-12.4)
[2025-01-13 12:16] LABS: Alanine Aminotransferase 36 U/L (0-40); Albumin Level 4.8 g/dL (3.5-5.0); Alkaline Phosphatase 77 U/L (39-117); Anion Gap 13 (12-20); Aspartate Amino Transferase 56 U/L (5-37); Blood Urea Nitrogen 15 mg/dL (9-16); Calcium 9.8 mg/dL (8.4-10.2); Carbon Dioxide 27 mmol/L (22-29); Chloride 103 mmol/L (96-108); Estimated Glomerular Filt Rate > 60; Lipase 18 U/L (8-78); Potassium 3.7 mmol/L (3.3-5.1); Sodium 139 mmol/L (135-145); Total Protein 7.6 g/dL (6.5-8.0)
[2025-01-13 12:35] LABS: Ferritin 183 ng/mL (20-250)
[2025-01-13 12:36] LABS: HBc Num1 0.06 S/CO (0.00-0.79); HBsAGNum1 0.33 S/CO (0.00-0.99); Hepatitis A Antibody IgM 0.19 Index (0-0.79); Hepatitis B Surface Antigen Negative (Negative); ~HepC Num1 0.09 S/CO (0.00-0.79); ~Hepatitis A Antibody IgM Nonreactive (Nonreactive); ~Hepatitis B Surface Antibody REACTIVE (Nonreactive); ~Hepatitis C Antibody Nonreactive (Nonreactive)
[2025-01-13 14:32] LABS: Leukocytes Stool Qualitative NEGATIVE (NEGATIVE)
[2025-01-13 14:46] LABS: CDiff Gene PCR NEGATIVE (Negative)
[2025-01-13 15:12] LABS: E. coli EAEC Not Detected (Not Detect.); E. coli EPEC Not Detected (Not Detect.); E. coli ETEC Not Detected (Not Detect.); E. coli STEC Not Detected (Not Detect.); Shigella sp./EIEC Not Detected (Not Detect.)
[2025-01-17 12:04] LABS: Anti Nuclear Antibody Screen NEGATIVE (NEGATIVE)
[2025-01-19 20:34] LABS: Calprotectin, Fecal 284 mcg/g
== END 2025-01-13 08:44 | disposition home or self-care (01) ==
LOC: HO.HHCL 08:43
PROVIDERS: PCP Student in an Organized Health Care Education/Training Program; Visit Provider Nurse Practitioner Family
DX: R79.89 Other specified abnormal findings of blood chemistry (principal); R19.7 Diarrhea, unspecified; Z11.59 Encounter for screening for other viral diseases
CPT/HCPCS: 36415; 80053; 82705; 82728; 83690; 83993; 84443; 85025; 85610; 86015; 86038; 86140; 86364; 86381; 86704; 86706; 86709; 86803; 87177; 87209; 87338; 87340; 87493; 87507; 89055

== ENCOUNTER → 2025-02-01 10:43 | Outpatient (BNV) | payer MEDICAID, SELFPAY | PROVIDERS: PCP Student in an Organized Health Care Education/Training Program; Visit Provider Radiology Diagnostic Radiology | DX: R94.5 Abnormal results of liver function studies (principal); N28.1 Cyst of kidney, acquired | CPT/HCPCS: 74183 ==

== ENCOUNTER 2025-02-01 10:45 | Outpatient (REF) | payer MEDICAID, SELFPAY ==
--- NOTE | ~2025-02-01 | MR_ITS ---
EXAMINATION: MR ABDOMEN WITHOUT AND WITH CONTRAST CLINICAL INFORMATION: R 94.5. Concerning liver mass. Abnormal liver function studies. COMPARISON: Correlated to ultrasound dated November 02, [address] abdomen pelvis dated March 31, 2020. TECHNIQUE: MR abdomen was performed without and with use of 7.0 mL intravenous [(Gadavist) gadolinium contrast. Postcontrast images are performed in multiphase dynamic sequences. Imaging was performed in 3 planes. No reported immediate complications FINDINGS: LUNG BASES: No enhancing mass. 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 LIVER, GALLBLADDER, AND BILIARY TREE: Liver measures 15 cm. No focal enhancing mass. Mild decreased/drop-off signal from the in to the out of phase sequence. Main portal veins and hepatic veins and intrahepatic portion of the knee are patent. Fluid-filled gallbladder without pericholecystic fluid collection or gallbladder wall thickening. Common bile duct measures 5 m. PANCREAS: No focal mass. No peripancreatic fluid collection. No main pancreatic ductal dilatation. SPLEEN: Subcentimeter. No focal mass. ADRENAL GLANDS: No nodular lesions. KIDNEYS AND URETERS: No renal mass. No hydronephrosis. Multifocal different sizes nonenhancing fluid signal characteristic lesions throughout the kidneys measuring less than 1.5 cm in normal enhancement pattern of the renal parenchyma. GASTROINTESTINAL TRACT: Abundant stool. No intestinal obstruction pattern. No ascites. No intestinal wall thickening. ABDOMINAL WALL: No umbilical hernia. LYMPH NODES: No mesenteric or retroperitoneal lymphadenopathy. VASCULAR: No aneurysm or dissection, abdominal aorta. OSSEOUS STRUCTURES: Multilevel thoracolumbar spondylosis pronounced at L1 to, L2-3 and L5-S1 level. Grade 1 retrolisthesis L2-3 on a degenerative basis. MR/MR abdomen wo/w con IMPRESSION: No liver mass. Bilateral renal cysts. Electronically signed by: Bran Bush MD 02/01/2025 12:37 PM EDT
--- OUTSIDE RECORDS SUMMARY | 2025-02-01 13:01 | XMS_ITS | Encounter Summary ---
Author Organization [employer] Address 75 [facility] 7t [place] [address] Care Team Providers Care Window Trimmer Apprentice Name Role Phone Hazel Hu MD Primary Care Pro vider Leonora Michel RN Unavailable Nelida Serrato Unavailable Encounter Details Date Type Department Care Team ([facility] Contact Info) Description 12/06/2024 Results Follow-Up [facility] MEDICINE [address] [place] [address] Hazel Hu MD 230 [place] [address] CT Lung Screening Low dose Social History [...] Care Team (Late st Contact Info) Description 02/11/2025 9:00 AM EDT Clinical Support [facility] MEDICINE [address] [place] [phone] Angeline Bond RN 505 [place] [address] 02/25/2025 11:30 AM EST Office Visit [address] [address] Eric Muñoz MD [address] [place] [address] documented as of this encounter Goals Goal Patient Goal Type Associated Problems Recent Progress Patient-Stated? Author Smoking cessation General Dari Bravo, SusieD documented as of this encounter Visit Diagnoses Not on filedocumented in this encounter Additional Health Concerns Assessment Noted Time PHQ-9 Depression Total Score: 0 09/04/19 1:01 PM EDT documented as of this encounter Care Teams Window Trimmer Apprentice Relationship Specialty Start Date End Date Hazel Hu MD [address] [place] [phone] PCP - General Internal Medicine 01/08/23 Leonora Michel RN [address] [place] [address] Registered Nurse Family Medicine 09/08/24 Nelida Serrato 09/08/24 documented as of this encounter
--- OUTSIDE RECORDS SUMMARY | 2025-02-01 13:01 | XMS_ITS | Encounter Summary ---
Author Organization [employer] Address 75 [facility] 7t [place] [address] Care Team Providers Care Java Oracle Developer Name Role Phone Hazel Hu MD Primary Care Pro vider Leonora Michel RN Unavailable [phone] Nelida Serrato Unavailable Reason for Visit * Reason Onset Date Comments Appointment Request 07/09/2024 Encounter Details Date Type Department Care Team ([facility] st Contact Info) Description 07/09/2024 Telephone [facility] MEDICINE [address] [place] [address] Hazel Hu MD [address] [place] [address] Appointment Request Social History Tobacco Use Types [...] Description 02/11/2025 9:00 AM EDT Clinical Support [facility] MEDICINE [address] [place] [phone] Angeline Bond RN 505 [place] [address] 02/25/2025 11:30 AM EST Office Visit [facility] MEDICINE [address] [place] [phone] Eric Muñoz MD [address] [place] [phone] documented as of this encounter Goals Goal Patient Goal Type Associated Problems Recent Progress Patient-Stated? Author Smoking cessation General Dari Bravo, PharmD documented as of this encounter Visit Diagnoses Not on filedocumented in this encounter Additional Health Concerns Assessment Noted Time PHQ-9 Depression Total Score: 3 02/13/20 23 10:59 AM EDT documented as of this encounter Care Teams Java Oracle Developer Relationship Specialty Start Date End Date Hazel Hu MD [address] [place] [phone] PCP - General Internal Medicine 01/08/23 Leonora Michel RN [address] [place] [address] Registered Nurse Family Medicine 09/08/24 Nelida Serrato 09/08/24 documented as of this encounter
--- OUTSIDE RECORDS SUMMARY | 2025-02-01 13:01 | XMS_ITS | Encounter Summary ---
Author Organization [employer] Address 75 [facility] 7t [place] [address] Care Team Providers Care Montessori Program Director Name Role Phone Hazel Hu MD Primary Care Pro vider Leonora Michel RN Unavailable [phone] Nelida Serrato Unavailable Reason for Visit * Reason Comments Med Refill Encounter Details Date Type Department Care Team (Late st Contact Info) Description 05/25/2024 Refill [facility] CHC MED & PEDS 505 [place], [place] [phone] Hazel Hu MD [address] [place], [place] [phone] Annual physical exam Social History Tobacco Use [...] Description 02/11/2025 9:00 AM EDT Clinical Support [facility] MEDICINE [address] [place] [address] Angeline Bond RN 505 [place] [address] 02/25/2025 11:30 AM EST Office Visit [facility] MEDICINE [address] [place] [address] Eric Muñoz MD [address] [place] [phone] documented as of this encounter Goals Goal [...] documented as of this encounter Care Teams Montessori Program Director Relationship Specialty Start Date End Date Hazel Hu MD [address] [place] [address] PCP - General Internal Medicine 01/08/23 Leonora Michel RN [address] [place] [address] Registered Nurse Family Medicine 09/08/24 Nelida Serrato 09/08/24 documented as of this encounter
--- OUTSIDE RECORDS SUMMARY | 2025-02-01 13:01 | XMS_ITS | Encounter Summary ---
Author Organization [email or web address] Address [address] [facility] 7t [place] [address] Care Team Providers Care Cleaner Housekeeping Name Role Phone Hazel Hu MD Primary Care Pro vider Leonora Michel RN Unavailable [phone] Nelida Serrato Unavailable Reason for Visit * Reason Comments Med Refill Encounter Details Date Type Department Care Team (Late st Contact Info) Description 12/29/2024 Refill [facility] [address] [place] [address] Hazel Hu MD 230 [place], [place] [phone] Social History Tobacco Use Types Packs/Day Years [...] the past 12 months, has t he [employer], gas, oil or water company threatened to [...] Description 02/11/2025 9:00 AM EDT Clinical Support [facility] [address] [place] [phone] Angeline Bond RN [address] [place] [address] 02/25/2025 11:30 AM EST Office Visit [facility] [address] [place] [phone] Eric Muñoz MD [address] [place] [phone] documented as of this encounter Goals Goal Patient Goal Type Associated Problems Recent Progress Patient-Stated? Author Smoking cessation General No Dari Simmons, PharmD documented as of this encounter Visit Diagnoses Not on filedocumented in this encounter Additional Health Concerns Assessment Noted Time PHQ-9 Depression Total Score: 0 09/04/19 25 1:01 PM EDT documented as of this encounter Care Teams Cleaner Housekeeping Relationship Specialty Start Date End Date Hazel Hu MD [address] [place] [phone] PCP - General Internal Medicine 01/08/23 Leonora Michel RN [address] [place] [phone] Registered Nurse Family Medicine 09/08/24 Nelida Serrato 09/08/24 documented as of this encounter
--- OUTSIDE RECORDS SUMMARY | 2025-02-01 13:01 | XMS_ITS | Encounter Summary ---
Author Organization [employer] Address [address] [facility] 7t [place] [address] Care Team Providers Care Remote Sensing Advisor Name Role Phone Hazel Hu MD Primary Care Pro vider Leonora Michel RN Unavailable [phone] Nelida Serrato Unavailable Reason for Visit * Reason Comments Med Refill Encounter Details Date Type Department Care Team (Late st Contact Info) Description 06/04/[address] [facility] [address] [place] [address] Hazel Hu MD 230 [place], [place] [phone] Social History Tobacco Use Types Packs/Day Years [...] the past 12 months, has t he [employer], gas, oil or water company threatened to [...] Description 02/11/2025 9:00 AM EDT Clinical Support [facility] [address] [place] [phone] Angeline Bond RN [address] [place] [address] 02/25/2025 11:30 AM EST Office Visit [facility] [address] [place] [phone] Eric Muñoz MD [address] [place] [phone] documented as of this encounter Goals Goal Patient Goal Type Associated Problems Recent Progress Patient-Stated? Author Smoking cessation General Dari Bravo, PharmD documented as of this encounter Visit Diagnoses Not on filedocumented in this encounter Additional Health Concerns Assessment Noted Time PHQ-9 Depression Total Score: 3 02/13/20 23 10:59 AM EDT documented as of this encounter Care Teams Remote Sensing Advisor Relationship Specialty Start Date End Date Hazel Hu MD [address] [place] [phone] PCP - General Internal Medicine 01/08/23 Leonora Michel RN [address] [place] [phone] Registered Nurse Family Medicine 09/08/24 Nelida Serrato 09/08/24 documented as of this encounter
--- OUTSIDE RECORDS SUMMARY | 2025-02-01 13:01 | XMS_ITS | Encounter Summary ---
Author Organization [employer] Address 75 [facility] 7t [place] [address] Care Team Providers Care Flexo Operator Name Role Phone Hazel Hu MD Primary Care Pro vider Leonora Michel RN Unavailable [phone] Nelida Serrato Unavailable Reason for Visit * Reason Comments Med Refill Encounter Details Date Type Department Care Team (Late st Contact Info) Description 09/20/2024 Refill [facility] [address] [place] [address] Hazel Hu MD 230 [place], [place] [phone] Social History Tobacco Use Types Packs/Day Years [...] the past 12 months, has t he [employer], gas, oil or water company threatened to [...] Description 02/11/2025 9:00 AM EDT Clinical Support [facility] [address] [place] [phone] Angeline Bond RN 505 [place] [address] 02/25/2025 11:30 AM EST Office Visit [facility] [address] [place] [phone] Eric Muñoz MD [address] [place] [phone] documented as of this encounter Goals Goal Patient Goal Type Associated Problems Recent Progress Patient-Stated? Author Smoking cessation General No Dari Simmons, PharmD documented as of this encounter Visit Diagnoses Not on filedocumented in this encounter Additional Health Concerns Assessment Noted Time PHQ-9 Depression Total Score: 0 09/04/19 25 1:01 PM EDT documented as of this encounter Care Teams Flexo Operator Relationship Specialty Start Date End Date Hazel Hu MD [address] [place] [phone] PCP - General Internal Medicine 01/08/23 Leonora Michel RN [address] [place] [phone] Registered Nurse Family Medicine 09/08/24 Nelida Serrato 09/08/24 documented as of this encounter
--- OUTSIDE RECORDS SUMMARY | 2025-02-01 13:01 | XMS_ITS | Encounter Summary ---
Author Organization [employer] Address [address] [facility] 7t [place] [address] Care Team Providers Care Computer Aided Design Designer Name Role Phone Hazel Hu MD Primary Care Pro vider Leonora Michel RN Unavailable [phone] Nelida Serrato Unavailable Encounter Details Date Type Department Care Team ([facility] st Contact Info) Description 05/20/2024 Orders Only [facility] [address] [place], [place] [phone] Jaqueline Davis, ANP [address] [place], [place] [phone] Social History Tobacco Use Types Packs/Day Years [...] Description 02/11/2025 9:00 AM EDT Clinical Support [facility] [address] [place] [phone] Angeline Bond RN [address] [place] [address] 02/25/2025 11:30 AM EST Office Visit [facility] [address] [place] [phone] Eric Muñoz MD [address] [place] [phone] documented as of this encounter Goals Goal Patient Goal Type Associated Problems Recent Progress Patient-Stated? Author Smoking cessation General Dari Bravo, SusieD documented as of this encounter Visit Diagnoses Not on filedocumented in this encounter Additional Health Concerns Assessment Noted Time PHQ-9 Depression Total Score: 3 02/13/20 23 10:59 AM EDT documented as of this encounter Care Teams Computer Aided Design Designer Relationship Specialty Start Date End Date Hazel Hu MD [address] [place] [phone] PCP - General Internal Medicine 01/08/23 Leonora Michel RN [address] [place] [phone] Registered Nurse Family Medicine 09/08/24 Nelida Serrato 09/08/24 documented as of this encounter
--- OUTSIDE RECORDS SUMMARY | 2025-02-01 13:01 | XMS_ITS | Clinical Summary ---
Author Organization [facility] Address [address] [place] [address] Care Team Providers Care Order Planner Name Role Phone Hazel Hu MD Primary Care Pro vider Leonora Michel RN Unavailable [phone] Nelida Serrato Unavailable Allergies Active Allergy [...] erectile dysfunction. 10 tablet 01/14/20 24 Active cyclobenzaprin e (Flexeril) 10 MG tablet TAKE 1 TABLET BY MOUTH EVERY 8 HOURS NEEDED 40 tablet 06/08/19 25 Active ciclopirox (Penlac) 8 % solutionIndica tions:Onychomy cosis Apply topically at bedtime. 10 mL 07/27/19 25 Active Acetaminophen Extra Strength 500 MG tabletIndicati ons:Lumbago with sciatica, left side TAKE 1 TO 2 TABLETS BY MOUTH EVERY 6 TO 8 HOURS NEEDED 30 tablet 08/17/19 25 Active albuterol (Ventolin HFA) 108 (90 Base) MCG/ACT inhaler INHALE 2 PUFFS BY MOUTH EVERY 4 HOURS NEEDED FOR WHEEZING OR FOR SHORTNESS OF BREATH 18 g 3 09/04/19 25 Active nicotine (Nicoderm, Step 1) 21 MG/24HR patchIndicatio ns:Nicotine Dependence Place 1 patch on the skin 1 (one) time each day at the same time. 30 patch 2 09/04/19 25 Active naloxone (Narcan) 4 mg/0.1 mL nasal spray Administer 1 spray (4 mg) into affected nostril(s) if needed for opioid reversal. May repeat every 2-3 minutes if needed, alternating nostrils, until medical assistance becomes available. 2 each 09/04/19 25 026 Active hydroCHLOROthi azide 12.5 MG tablet TAKE 1 TABLET BY [...] smoking cessation. 100 each 11/02/19 25 Active atorvastatin (Lipitor) 20 MG tablet TAKE 1 TABLET BY MOUTH EVERY MORNING 90 tablet 1 12/08/19 25 Active cholecalcifero l VITAMIN D (Vitamin D-3) 50 MCG (2000 UT) tablet TAKE 1 TABLET BY MOUTH EVERY MORNING 90 tablet 1 12/08/19 25 Active verapamil SR (Calan SR) 240 MG ER tablet TAKE 1 TABLET BY MOUTH AT BEDTIME DO NOT BREAK, CRUSH, DISSOLVE OR CHEW 90 tablet 1 01/12/20 25 Active topiramate (Topamax) 25 MG tablet Take 1 tablet (25 mg) by mouth Once per day. 30 tablet 2 01/19/20 25 026 Active traMADol (Ultram) 50 MG tabletIndicati ons:Chronic neck pain,Left shoulder pain, unspecified chronicity TAKE 2 TABLETS BY MOUTH EVERY TWELVE HOURS NEEDED FOR SEVERE PAIN 112 tablet 01/28/20 25 Active verapamil SR (Calan SR) 240 MG ER tablet TAKE 1 TABLET BY MOUTH AT BEDTIME DO NOT BREAK, CRUSH, DISSOLVE OR CHEW 90 tablet 1 05/13/19 25 025 Discontinued topiramate (Topamax) 25 MG tablet Take 1 tablet (25 mg) by mouth Once per day. 30 tablet 2 11/02/19 25 025 Discontinued(R eorder (will not trigger notification to Pharmacy)) traMADol (Ultram) 50 MG tabletIndicati ons:Chronic neck pain,Left shoulder pain, unspecified chronicity TAKE 2 TABLETS BY MOUTH EVERY 12 HOURS NEEDED FOR SEVERE PAIN 112 tablet 11/23/19 25 025 Discontinued Active Problems Problem Noted [...] Encounters Date Type Department Care Team Description 01/27/2025 Refill [facility] [address], [place] [address] Hazel Hu MD Chronic neck pain; Left shoulder pain, unspecified chronicity 01/21/2025 8:00 AM EDT Office Visit [facility] [address], [place] [address] Derek Gomes DMD 01/18/2025 Refill [facility] [address], [place] [address] Hazel Hu MD 01/14/2025 Refill [facility] [address], [place] [address] Hazel Hu MD 01/13/2025 10:00 AM EDT Office Visit [facility] [address], [place] [address] Derek Gomes DMD 01/13/2025 Orders Only GENERIC EXTERNAL DATA DEPARTMENT Provider, Generic External Data 01/11/2025 Refill [facility] [address], [place] [address] Yahir Hickman MD 01/10/2025 9:00 AM EDT Office Visit [facility] [address], [place] [address] Derek Gomes DMD 12/29/2024 Refill [facility] [address], [place] [address] Hazel Hu MD 12/10/2024 9:30 AM EDT Clinical Support [facility] [address], [place] [address] Angeline Bond RN Low back pain, unspecified back pain laterality, unspecified chronicity, unspecified whether sciatica present (Primary Dx) 12/10/2024 Travel 12/06/2024 Results Follow-Up [address] [address] [address] Lung Screening Low dose 12/06/2024 Orders Only [facility] External Provider, [facility] 12/06/[address] [address] Yahir Hickman MD 11/30/2024 Patient Outreach [address] [address] Hazel Hu MD Care Coordination (CM/CHW outreach) 11/22/[address] [address] Hazel Hu MD Chronic neck pain; Left shoulder pain, unspecified chronicity 11/08/[address] [address] Hazel Hu MD sep recall 11/03/2024 Results Follow-Up [facility] [address] [place] [address] Hazel Hu MD US Abdomen Complete 11/03/2024 Orders Only [facility] [address] [place] [address] Hazel Hu MD Abnormal finding on imaging of liver (Primary Dx) 11/01/2024 1:00 PM EDT Office Visit [address] [address] Hazel Hu MD Transaminitis (Primary Dx); Tobacco use; Mild chronic obstructive pulmonary disease (CMS/HCC); Low back pain, unspecified back pain laterality, unspecified chronicity, unspecified whether sciatica present; Chronic neck pain; Health care maintenance; Essential hypertension 11/01/2024 Results Follow-Up [address] [address] Hazel Hu MD Comprehensive Metabolic Panel 11/01/2024 Travel from Last 3 Months Immunizations Immunization Administration [...] Sign Reading Time Taken Comments Blood Pressure 124/80 01/21/2025 8:02 AM EDT Pulse 64 11/01/2024 1:02 PM [...] 02/11/2025 9:00 AM EDT Clinical Support [facility] [address] [place] [address] Angeline Bond RN [address] [place] [address] 02/25/2025 11:30 AM EST Office Visit [facility] [address] [place] [address] Eric Muñoz MD [address] [place] [address] Health Maintenance Due Date Last Done Comments [...] 09/03/2025 09/03/2024 Depression Screening 09/03/2025 09/03/2024, 09/04/19 25 Disability Screening 09/03/2025 09/03/2024 SDOH Screening 11/01/2025 11/01/2024 Lung Cancer Screening 12/06/2025 12/06/2024 Tobacco Screening 01/21/2026 01/21/2025 Lipid Panel 08/17/2029 08/17/2024, 02/13/2023 DTaP/Tdap/Td Vaccines (2 - Td or Tdap) 06/13/2032 06/13/2022 Zoster Vaccines Completed 11/30/2021, 09/13/2021 Pneumococcal Vaccine: 50+ Years Completed 06/13/2022 HIV Screening Completed 02/13/2023 Hepatitis B Vaccines Completed 06/03/2023, 07/11/2022, 08/17/2021 RSV Patients and Patients Aged 60 years or older Completed 06/03/2023 Hepatitis C Screening Completed 01/13/2025 , 02/13/2023, 07/20/2021 HIB Vaccines Aged Out No longer eligi [...] Procedure Name Priority Date/Time Associated Diagnosis Comments MR ABDOMEN W AND WO CONTRAST Routine 02/01/2025 11:17 AM EDT CASE PRESENTATION, DETAILED AND EXTENSIVE TREATMENT PLANNING Routine 01/21/2025 8:00 AM EDT REPAIR BROKEN COMPLETE DENTURE BASE, MAX Routine 01/21/2025 8:00 AM EDT NO CHARGE VISIT Routine 01/13/2025 10:00 AM EDT ACTIN (SMOOTH MUSCLE) ANTIBODY (IGG) Routine 01/13/2025 9:01 AM EDT MITOCHONDRIAL ANTIBODY WITH REFLEX TO TITER Routine 01/13/2025 9:01 AM EDT JUAN SCREEN, IFA, W/REFL TITER AND PATTERN Routine 01/13/2025 9:01 AM EDT TISSUE TRANSGLUTAMINASE AB, IGA Routine 01/13/2025 9:01 AM EDT HEPATITIS PANEL, GENERAL Routine 01/13/2025 9:01 AM EDT TSH W/REFLEX TO FT4 Routine 01/13/2025 9 :01 AM EDT FERRITIN Routine 01/13/2025 9:01 AM EDT LIPASE Routine 01/13/2025 9:01 AM EDT C-REACTIVE PROTEIN Routine 01/13/2025 9: 01 AM EDT COMPREHENSIVE METABOLIC PANEL, FASTING Routine 01/13/2025 9:01 AM EDT PROTHROMBIN TIME-INR Routine 01/13/2025 9:01 AM EDT CBC WITH AUTO DIFFERENTIAL Routine 01/13/2025 9:01 AM EDT CALPROTECTIN, STOOL Routine 01/13/2025 8:00 AM EDT FECAL FAT, QUALITATIVE Routine 8:00 AM EDT HELICOBACTER PYLORI AG, EIA, STOOL Routine 01/13/2025 8:00 AM EDT CDIFF GENE PCR Routine 01/13/2025 8:00 AM EDT LEUKOCYTES STOOL QUALITATIVE Routine 01/13/2025 8:00 AM EDT OVA AND PARASITES, CONC AND PERM SMEAR Routine 01/13/2025 8:00 AM EDT GASTROINTESTINAL PANEL Routine 8:00 AM EDT NO CHARGE VISIT Routine 01/10/2025 9:00 AM [...] 9:29 AM EDT Hyperlipidemia, unspecified hyperlipidemia type HIV 1/2 ANTIGEN/ANTIBODY, FOURTH GENERATION W/RFL Routine 02/13/2023 8:25 AM EDT Annual physical exam from Last 3 Months or Most Recently Relevant to Health Maintenance Results * MR Abdomen w/ and w/o Contrast (02/01/2025 11:17 AM EDT) Anatomical Region Laterality Modality Abdomen Magnetic Resonan ce 02/01/2025 11:1 7 AM EDT Narrative 02/01/2025 12:40 PM EDT [place] [address] Magnetic Resonance Report Signed Patient: Jb Rubio MR#: [id number] : 1960 Acct:[id number] Age/Sex: 65 / M ADM Date: 02/01/25 Loc: HO.MRI Attending Dr: Yamileth Keen CNP Ordering Physician: Yamileth Keen CNP Date of Service: 02/01/25 Procedure(s): MR abdomen wo/w con Accession Number(s): [id number] cc: Hazel Hu MD; Yamileth Keen CNP Reason for Exam: R94.5 - Abnormal results of liver function studies EXAMINATION: MR ABDOMEN WITHOUT AND WITH CONTRAST CLINICAL INFORMATION: R 94.5. Concerning liver mass. Abnormal liver function studies. COMPARISON: Correlated to ultrasound dated November 02, [address] abdomen pelvis dated March 31, 2020. TECHNIQUE: MR abdomen was performed without and with use of 7.0 mL intravenous [(Gadavist) gadolinium contrast. Postcontrast images are performed in multiphase dynamic sequences. Imaging was performed in 3 planes. No reported immediate complications FINDINGS: LUNG BASES: No enhancing mass. 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 LIVER, GALLBLADDER, AND BILIARY TREE: Liver measures 15 cm. No focal enhancing mass. Mild decreased/drop-off signal from the in to the out of phase sequence. Main portal veins and hepatic veins and intrahepatic portion of the knee are patent. Fluid-filled gallbladder without pericholecystic fluid collection or gallbladder wall thickening. Common bile duct measures 5 m. PANCREAS: No focal mass. No peripancreatic fluid collection. No main pancreatic ductal dilatation. SPLEEN: Subcentimeter. No focal mass. ADRENAL GLANDS: No nodular lesions. KIDNEYS AND URETERS: No renal mass. No hydronephrosis. Multifocal different sizes nonenhancing fluid signal characteristic lesions throughout the kidneys measuring less than 1.5 cm in normal enhancement pattern of the renal parenchyma. GASTROINTESTINAL TRACT: Abundant stool. No intestinal obstruction pattern. No ascites. No intestinal wall thickening. ABDOMINAL WALL: No umbilical hernia. LYMPH NODES: No mesenteric or retroperitoneal lymphadenopathy. VASCULAR: No aneurysm or dissection, abdominal aorta. OSSEOUS STRUCTURES: Multilevel thoracolumbar spondylosis pronounced at L1 to, L2-3 and L5-S1 level. Grade 1 retrolisthesis L2-3 on a degenerative basis. MR/MR abdomen wo/w con IMPRESSION: No liver mass. Bilateral renal cysts. Electronically signed by: Bran Bush MD 02/01/2025 12:37 PM EDT RP Dictated By: Bran Zimmerman MD Signed By: <Electronically signed by Bran Ocasio MD in OV> 02/01/25 1237 DD/ 1117 TD/TT: 02/01/25 1150 Mathematics Academic Chair: Procedure Note Donotuseinterpreter, Image - 02/01/2025 [place] [address] Magnetic Resonance Report Signed Patient: Jb Rubio AMR#: [id number] : 1960cct:[id number] Age/Sex: 65 / MADM Date: 02/01/25 Loc: HO.MRI Attending Dr: Yamileth Keen CNP Ordering Physician: Yamileth Keen CNP Date of Service: 02/01/25 Procedure(s): MR abdomen wo/w con Accession Number(s): [id number] cc: Hazel Hu MD; Yamileth Keen CNP Reason for Exam: R94.5 - Abnormal results of liver function studies EXAMINATION: MR ABDOMEN WITHOUT AND WITH CONTRAST CLINICAL INFORMATION: R 94.5. Concerning liver mass. Abnormal liver function studies. COMPARISON: Correlated to ultrasound dated November 02, [address] abdomen pelvis dated March 31, 2020. TECHNIQUE: MR abdomen was performed without and with use of 7.0 mL intravenous [(Gadavist) gadolinium contrast. Postcontrast images are performed in multiphase dynamic sequences. Imaging was performed in 3 planes. No reported immediate complications FINDINGS: LUNG BASES: No enhancing mass. 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 LIVER, GALLBLADDER, AND BILIARY TREE: Liver measures 15 cm. No focal enhancing mass. Mild decreased/drop-off signal from the in to the out of phase sequence. Main portal veins and hepatic veins and intrahepatic portion of the knee are patent. Fluid-filled gallbladder without pericholecystic fluid collection or gallbladder wall thickening. Common bile duct measures 5 m. PANCREAS: No focal mass. No peripancreatic fluid collection. No main pancreatic ductal dilatation. SPLEEN: Subcentimeter. No focal mass. ADRENAL GLANDS: No nodular lesions. KIDNEYS AND URETERS: No renal mass. No hydronephrosis. Multifocal different sizes nonenhancing fluid signal characteristic lesions throughout the kidneys measuring less than 1.5 cm in normal enhancement pattern of the renal parenchyma. GASTROINTESTINAL TRACT: Abundant stool. No intestinal obstruction pattern. No ascites. No intestinal wall thickening. ABDOMINAL WALL: No umbilical hernia. LYMPH NODES: No mesenteric or retroperitoneal lymphadenopathy. VASCULAR: No aneurysm or dissection, abdominal aorta. OSSEOUS STRUCTURES: Multilevel thoracolumbar spondylosis pronounced at L1 to, L2-3 and L5-S1 level. Grade 1 retrolisthesis L2-3 on a degenerative basis. MR/MR abdomen wo/w con IMPRESSION: No liver mass. Bilateral renal cysts. Electronically signed by: Bran Bush MD 02/01/2025 12:37 PM EDT Dictated By: Bran Zimmerman MD Signed By: <Electronically signed by Bran Ocasio MDin OV> 02/01/25 1237 DD/ 1117 TD/TT: 02/01/25 1150 Mathematics Academic Chair: [facility] External Provider IMG MRI PROCEDURES Edited Result - Final * (ABNORMAL) Comprehensive Metabolic Panel, Fasting (01/13/2025 9:01 AM EDT) Sodium 139 135 - 145 mmol/L [facility] Potassium 3.7 3.3 - 5.1 mmol/L [facility] Chloride 103 96 - 108 mmol/L [facility] Carbon Dioxide 27 22 - 29 mmol/L [facility] Anion Gap 13 12 - 20 [facility] Urea Nitrogen (BUN) 15 9 - 16 mg/dL [facility] Creatinine, Serum 0.87 0.5 - 1.4 mg/dL [facility] Estimated Glomerular Filt Rate >60 [facility] Comment:Chronic Kidney Disea se: Estimated GFR < 60 mL/min/[id number] Kidney Disease: Estimated GFR < 15 mL/min/1.73m2 Glucose Fasting 94 60 - 99 mg/dL [facility] Calcium 9.8 8.4 - 10.2 mg/dL [facility] Bilirubin, Total 0.9 0.0 - 1.0 mg/dL [facility] Aspartate Amino Transferase 56(H) 5 - 37 U/L [facility] Alanine Aminotransferase 36 0 - 40 U/L [facility] Total Protein 7.6 6.5 - 8.0 g/dL [facility] Albumin Level 4.8 3.5 - 5.0 g/dL [facility] Alkaline Phosphatase 77 39 - 117 U/L [facility] 01/13/2025 9:01 AM EDT 01/13/2025 11:45 AM EDT us Generic External Data Provider LAB BLOOD ORDERAB LES Final Result [facility] [address] [place] [address] [phone] * TSH with Reflex to Free T4 (01/13/2025 9:01 AM EDT) TSH reflex Free T4 0.32 0.32 - 4.0 uIU/mL [facility] 01/13/2025 9:01 AM EDT 01/13/2025 11:45 AM EDT us Generic External Data Provider LAB BLOOD ORDERAB LES Final Result Performing Organization Address City/[facility]/ZIP Co de Phone Number [facility] [address] [place] [phone] * Hepatitis Panel, General (01/13/2025 9:01 AM EDT) Pathologist [facility] Hepatitis A IgM Nonreactive Nonreactive [facility] Comment:IgM antibodies to PATEL V not detected; does not exclude earlyacute or recovered HAV infection. ~Hepatitis B Surface Antibody REACTIVE Nonreactive [facility] Comment:REACTIVE: > 11.99 mI U/mL Hepatitis B Core Antibody Nonreactive Nonreactive [facility] Hepatitis C Antibody Nonreactive Nonreactive [facility] Comment:Antibodies to HCV no t detected; does not exclude early acuteHCV infection. Hepatitis B Surface Ag Negative Negative [facility] 01/13/2025 9:01 AM EDT 01/13/2025 11:40 AM EDT us Generic External Data Provider LAB BLOOD ORDERAB LES Final Result Performing Organization Address City/[facility]/ZIP Co de Phone Number [facility] [address] [place] [phone] * (ABNORMAL) CBC auto differential (01/13/2025 9:01 AM EDT) [facility] White Blood Count 5.0 4.8 - 10.8 X10*3/uL [facility] Red Blood Count 4.29(L) 4.60 - 5.80 X10*6/uL [facility] Hemoglobin 13.8(L) 14.0 - 18.0 g/dl [facility] Hematocrit 39.3(L) 42.0 - 52.0 % [facility] Mean Corpuscular Volume 91.6 80.0 - 98.0 fL [facility] Mean Corpuscular Hemoglobin 32.2 27.0 - 33.0 pg [facility] Mean Corpuscular HGB Conc 35.1 31.0 - 36.0 g/dl [facility] Red Cell Distribution Width 12.3 11.0 - 16.0 % [facility] Platelet Count 190 160 - 400 X10*3/uL [facility] Mean Platelet Volume 10.9 9.4 - 12.4 fL [facility] Neutrophils Percent Auto 59.1 45 - 73 % [facility] Imm Gran Pct Auto 0.2 0.0 - 0.4 % [facility] Lymphocytes Percent Auto 27.8 20 - 40 % [facility] Monocytes Percent Auto 8.7 2 - 11 % [facility] Eosinophils Percent Auto 3.6 0 - 4 % [facility] Basophils Percent Auto 0.6 0 - 2 % [facility] NRBC Pct Auto 0.0 0.0 - 0.2 /100WBC [facility] Neutrophils Absolute Auto 2.9 2.0 - 8.3 x10*3/uL [facility] Imm Gran Abs Auto 0.01 0.00 - 0.03 X10*3/uL [facility] Lymphocytes Absolute Auto 1.4 1.2 - 4.9 X10*3/uL [facility] Monocytes Absolute Auto 0.4 0.1 - 1.2 X10*3/uL [facility] Eosinophils Absolute Auto 0.2 0.0 - 0.4 X10*3/uL [facility] Basophils Absolute Auto 0.0 0.0 - 0.2 X10*3/uL [facility] NRBC Abs Auto 0.000 0.0 - 0.012 X10*3/uL [facility] 01/13/2025 9:01 AM EDT 01/13/2025 11:45 AM EDT us Generic External Data Provider LAB BLOOD ORDERAB LES Final Result [facility] [address] [place] [phone] [phone] * Actin (Smooth Muscle) Antibody (IgG) (01/13/2025 9:01 AM EDT) Smooth Muscle Antibody <20 <20 U [facility] Comment:Reference Range: <20 U: Negative>or=20 U: PositiveAntibodies recognizing actin are the main componentof smooth muscle antibodies associated with auto- immune liver disease. Actin antibodies are found inapproximately 75% of patients with autoimmunehepatitis (AIH) type 1, approximately 65% of patientswith autoimmune cholangitis, approximately 30% ofpatients with primary biliary cirrhosis andapproximately 2% of healthy controls. High values areclosely correlated with AIH type 1.THIS TEST WAS PERFORMED AT:[id number] [place] [address]CYBRRSUYRIS PONCE MD,PHD 01/13/2025 9:01 AM EDT 01/13/2025 11:40 AM EDT Generic External Data Provider LAB BLOOD ORDERAB LES Final Result Performing Organization Address [facility] Co de Phone Number [facility] [address] [place] [phone] * Tissue Transglutaminase Antibody, IgA (01/13/2025 9:01 AM EDT) Transglutaminase IgA <1.0 U/mL [facility] Comment:Value Interpretation ----- <15.0 Antibody not detected> or = 15.0 Antibody detectedTHIS TEST WAS PERFORMED AT:[facility] [address] [phone] VELASCO MD 01/13/2025 9:01 AM EDT 01/13/2025 11:40 AM EDT us Generic External Data Provider LAB BLOOD ORDERAB LES Final Result Performing Organization Address [facility] de Phone Number [facility] [address] [place] [phone] * Mitochondrial Antibody with Reflex to Titer (01/13/2025 9:01 AM EDT) Mitochondrial Antibodies NEGATIVE NEGATIVE [facility] Comment:THIS TEST WAS PERFOR MED AT:[facility] [place] [phone] VELASCO MD Mitochondrial Ab Titer TNP [facility] 01/13/2025 9:01 AM EDT 01/13/2025 11:40 AM EDT Generic External Data Provider LAB BLOOD ORDERAB LES Final Result [facility] [address] [place] [phone] * (ABNORMAL) Prothrombin Time-INR (01/13/2025 9:01 AM EDT) Pathologist [facility] Prothrombin Time 9.9(L) 10.9 - 12.4 SEC [facility] INTERNATIONAL NORM RATIO 0.9 0.9 - 1.1 [facility] Comment:INTERNATIONAL NORMAL IZED RATIO (INR) REFERENCE RANGES Reference RangeFor patients not on anticoagulant therapy: 0.9 - 1.1INR ranges for oral anticoagulanttherapy:For prevention and treatment of venous thrombosis and pulmonary embolism: 2.0 - 3.0For acute myocardial infarction with aspirin therapy: 2.0 - 3.0For acute myocardial infarction without aspirin therapy: 3.0 - 4.0For patients with mechanical prosthetic heart valves: 2.5 - 3.5 01/13/2025 9:01 AM EDT 01/13/2025 11:45 AM EDT [facility] External Data Provider LAB BLOOD ORDERAB LES Final Result Performing Organization Address [facility]/ZIP Co de Phone Number [facility] [address] [place] [phone] * C-reactive Protein (01/13/2025 9:01 AM EDT) C Reactive Protein <0.10 < or = 0.50 mg/dL [facility] 01/13/2025 9:01 AM EDT 01/13/2025 11:45 AM EDT us Generic External Data Provider LAB BLOOD ORDERAB LES Final Result Performing Organization Address [facility]/ZIP Co de Phone Number [facility] [address] [place] [phone] * JUAN Screen,IFA, with Reflex to Titer and Pattern (01/13/2025 9:01 AM EDT) Anti Nuclear Antibody Screen NEGATIVE NEGATIVE [facility] Comment:JUAN IFA is a first l ine screen for detecting thepresence of up to approximately 150 autoantibodies invarious autoimmune diseases. A negative JUAN IFA resultsuggests an JUAN-associated autoimmune disease is notpresent at this time, but is not definitive. If thereis high clinical suspicion for Sjogren's syndrome,testing for anti-SS-A/Ro antibody should be considered.Anti-Sherie-1 antibody should be considered for clinicallysuspected inflammatory myopathies.AC-0: NegativeInternational Consensus on JUAN Patterns(https://doi.org/10.1515/cltv-8881-0142)For additional information, please refer tohttp://education.[employer]/faq/XHO414(This link is being provided for informational/educational purposes only.)THIS TEST WAS PERFORMED AT:[facility] [place] [phone] VELASCO MD JUAN Titer TNP [facility] JUAN Pattern TNP [facility] JUAN TITER 2 (REF LAB) TNP [facility] JUAN Pattern 2 [facility] JUAN TITER 3 [facility] JUAN PATTERN 3 [facility] 01/13/2025 9:0 1 AM EDT 01/13/2025 11:40 AM EDT us Generic External Data Provider LAB BLOOD ORDERAB LES Final Result [facility] [address] [place] [phone] * Lipase (01/13/2025 9:01 AM EDT) Lipase 18 8 - 78 U/L [facility] 01/13/2025 9:01 AM EDT 01/13/2025 11:45 AM EDT us Generic External Data Provider LAB BLOOD ORDERAB LES Final Result Performing Organization Address [facility] Co de Phone Number [facility] [address] [place] [phone] * Ferritin (01/13/2025 9:01 AM EDT) Ferritin 183 20 - 250 ng/mL [facility] 01/13/2025 9:01 AM EDT 01/13/2025 11:45 AM EDT us Generic External Data Provider LAB BLOOD ORDERAB LES Final Result Performing Organization Address [facility] de Phone Number [facility] [address] [place] [phone] * Leukocytes Stool Qualitative (01/13/2025 8:00 AM EDT) Leukocytes Stool Qualitative NEGATIVE NEGATIVE [facility] 01/13/2025 8:00 AM EDT 01/13/2025 12:15 PM EDT us Generic External Data Provider LAB BODY FLUIDS A ND STOOLS ORDERABLES Final Result Performing Organization Address [facility] de Phone Number [facility] [address] [place] [phone] * CDiff Gene PCR (01/13/2025 8:00 AM EDT) CDiff Gene PCR NEGATIVE Negative [facility] Comment:If C. difficile stro ngly suspected despite one negativetest, a second test may be sent vs. empiric treatment forC. difficile infection. 01/13/2025 8:00 AM EDT 01/13/2025 12:15 PM EDT us Generic External Data Provider LAB BODY FLUIDS A ND STOOLS ORDERABLES Final Result [facility] [address] [place] [phone] * Gastrointestinal panel (01/13/2025 8:00 AM EDT) Campylobacter Not Detected Not Detect. [facility] Plesiomonas shigelloides Not Detected Not Detect. [facility] Salmonella Not Detected Not Detect. [facility] Vibrio Not Detected Not Detect. [facility] Vibrio cholerae Not Detected Not Detect. [facility] YERSINIA ENTEROCOLITICA Not Detected Not Detect. [facility] Enteroaggregative E. coli (EAEC) Not Detected Not Detect. [facility] Enteropathogenic E. coli (EPEC) Not Detected Not Detect. [facility] Enterotoxigenic E. coli (ETEC) lt/st Not Detected Not Detect. [facility] Shiga-like toxin-producing E. coli (STEC) stx1/stx2 Not Detected Not Detect. [facility] E coli O157 Not applicable Not Detect. [facility] Comment:E. coli containing t he O157 antigen are a subset ofShiga-like toxin- producing E. coli (STEC). Shigella/Enteroinvasive E. coli (EIEC) Not Detected Not Detect. [facility] Cryptosporidium Not Detected Not Detect. [facility] Cyclospora cayetanensis Not Detected Not Detect. [facility] Entamoeba histolytica Not Detected Not Detect. [facility] Giardia lamblia Not Detected Not Detect. [facility] Adenovirus F 40/41 Not Detected Not Detect. [facility] Astrovirus Not Detected Not Detect. [facility] Norovirus GI/GII Not Detected Not Detect. [facility] Rotavirus A Not Detected Not Detect. [facility] Sapovirus Not Detected Not Detect. [facility] Comment: All results must be correlated with clinical findings.Negative results do not exclude the possibility ofgastrointestinal infection and should not be used as thesole basis for diagnosis, treatment, or other managementdecisions. Virus, bacteria, and parasite nucleic acid maypersist in vivo independently of organism viability.Additionally, some organisms may be carriedasymptomatically.Detection of organism targets does not imply that thecorresponding organisms are infectious or are the causativeagents for clinical symptoms. There is a risk of falsenegative values due to the presence of sequence variants inthe gene targets of the assay, amplification inhibitors inspecimens, or inadequate numbers of organisms foramplification.The identification of several diarrheagenic E. colipathotypes has historically relied upon phenotypiccharacteristics. This panel targets genetic determinantscharacteristic of most pathogenic strains, but may notdetect all strains having phenotypic characteristics of apathotype.The performance of this test has not been established formonitoring treatment of infection with any of the panelorganisms.This assay is performed by Multiplexed PCR, utilizing [employer] Array. 01/13/2025 8:00 AM EDT 01/13/2025 12:15 PM EDT us Generic External Data Provider LAB MICROBIOLOGY - GENERAL ORDERABLES Final Result [facility] [address] [place] [phone] * (ABNORMAL) Calprotectin, Stool (01/13/2025 8:00 AM EDT) Calprotectin,Fecal 284(A) mcg/g [facility] Comment:Reference Range: <5 0 Normal 50-120 Borderline >120 ElevatedCalprotectin in Crohn's disease and ulcerative colitis canbe five to several thousand times above the referencepopulation (50 mcg/g or less). Levels are usually 50 mcg/gor less in healthy patients and with irritable bowelsyndrome. Repeat testing in 4-6 weeks is suggested forborderline values.THIS TEST WAS PERFORMED AT:[facility] [id number] [place] [address]YTECKTONO KENNEDY MD,PHD,JEWEL 01/13/2025 8:00 AM EDT 01/13/2025 12:15 PM EDT Generic External Data Provider LAB BODY FLUIDS A ND STOOLS ORDERABLES Final Result Performing Organization Address [facility] Co de Phone Number [facility] [address] [place] [phone] * Ova and Parasites,??Concentrate and Permanent Smear (01/13/2025 8:00 AM EDT) Ova and Parasite Trichrome SEE NOTE [facility] Comment: OVA AND PARASITES, CONC AND PERM SMEAR Micro Number: [id number] Test Status: Final Specimen Source: Stool Specimen Quality: Adequate CONCENTRATION 1: No ova or parasites seen TRICHROME 1: No ova or parasites seen Routine Ova and Parasite exam may not detect some parasites that occasionally cause diarrheal illness. Cryptosporidium Antigen and/or Cyclospora and Isospora Exam may be ordered to detect these parasites. One negative sample does not necessarily rule out the presence of a parasitic infection. For additional information, please refer to https://education.LoopNet/faq/BCB432 (This link is being provided for informational/ educational purposes only.)THIS TEST WAS PERFORMED AT:[facility] [address] [place] [address]IPNB JUDSON,MD 01/13/2025 8:00 AM EDT 01/13/2025 12:15 PM EDT Generic External Data Provider LAB MICROBIOLOGY - GENERAL ORDERABLES Final Result Performing Organization Address [facility]/ZIP Co de Phone Number [facility] [address] [place] [phone] * Helicobacter pylori??Antigen, EIA, Stool (01/13/2025 8:00 AM EDT) H pylori Ag Stool SEE NOTE [facility] Comment:HELICOBACTER PYLORI AG, EIA, STOOL Micro Number: [id number] Test Status: Final Specimen Source: Stool Specimen Quality: Adequate H.pylori Ag: Not Detected Antimicrobials, proton pump inhibitors, and bismuth preparations inhibit H. pylori and ingestion up to two weeks prior to testing may cause false negative results. If clinically indicated the test should be repeated on a new specimen obtained two weeks after discontinuing treatment. Reference Range: Not DetectedTHIS TEST WAS PERFORMED AT:[facility] [address] [address]ORMNUMALIK VELASCO MD 01/13/2025 8:00 AM EDT 01/13/2025 12:15 PM EDT Generic External Data Provider LAB BODY FLUIDS A ND STOOLS ORDERABLES Final Result Performing Organization Address City/[facility]/ZIP Co de Phone Number [facility] [address] [place] [phone] * Fecal Fat, Qualitative (01/13/2025 8:00 AM EDT) Fecal Fat, Qualitative Normal Normal [facility] Comment:THIS TEST WAS PERFOR MED AT:[id number] [place] [address]ETZLJTOYRIS PONCE MD,PHD 01/13/2025 8:00 AM EDT 01/13/2025 12:15 PM EDT us Generic External Data Provider LAB BLOOD ORDERAB LES Final Result Performing Organization Address [facility] Co de Phone Number [facility] [address] [place] [phone] * POCT FRED-14 Urine Drug Screen (12/10/2024 [...] - 12/10/2024 9:18 AM EDT .UTOX cup Lot#[id number] Exp. 01/18/26 Internal Pass Control Hazel Rojas MD POINT OF CARE NATALIE T ENTER/EDIT ORDERABLES Final Result * CT Lung Screening Low dose (12/06/2024 12:52 PM EDT) Anatomical Region Laterality Modality Lung Computed Tomogra phy 12/06/2024 12:5 2 PM EDT Narrative 12/06/2024 1:20 PM EDT [place] [address] CT Scan Report Signed Patient: Jb Rubio MR#: [id number] : 1960 Acct:[id number] Age/Sex: 64 / M ADM Date: 12/06/24 Loc: HO.CT Attending Dr: Lisbeth Sahni PA-C Ordering Physician: Lisbeth Sahni PA-C Date of Service: 12/06/24 Procedure(s): CT lung screening Accession Number(s): [id number] cc: Lisbeth Sahni PA-C; Hazel Hu MD Report Number: [id number]: Total DLP = 49.00 mGy-cm EXAMINATION: CT [...] for CT CHEST LOW DOSE CANCER SCREENING ([id number]) can be placed. Electronically signed by: Chu Haddad MD 12/06/2024 01:17 PM EDT Dictated By: Chu Haddad MD Signed By: <Electronically signed by Chu Haddad MD in OV> 12/06/24 1317 DD/ 1252 TD/TT: 12/06/24 1304 Mathematics Academic Chair: Procedure Note Donotuseinterpreter, Image - 12/06/[address] [place] [address] [address] Scan Report Signed Patient: Jb Rubio [facility]#: [id number] : 1960cct:[id number] Age/Sex: 64 / MADM Date: 12/06/24 Loc: HO.CT Attending Dr: Lisbeth Sahni PA-C Ordering Physician: Lisbeth Sahni PA-C Date of Service: 12/06/24 Procedure(s): CT lung screening Accession Number(s): [id number] cc: Lisbeth Sahni PA-C; Hazel Hu MD Report Number: [id number]: Total DLP = 49.00 mGy-cm EXAMINATION: CT [...] for CT CHEST LOW DOSE CANCER SCREENING ([id number]) can be placed. Electronically signed by: Chu Haddad MD 12/06/2024 01:17 PM EDT Dictated By: Chu Haddad MD Signed By: <Electronically signed by Chu Haddad MD in OV> 12/06/24 1317 DD/ 1252 TD/TT: 12/06/24 1304 Mathematics Academic Chair: [facility] External Provider IMG CT PROCEDURES Final Result * US Abdomen Complete (11/03/2024 10:36 AM EDT) Anatomical Region Laterality Modality Abdomen Ultrasound 11/03/2024 10:3 6 AM EDT Narrative 11/03/2024 10:38 AM EDT [address] [address] Ultrasound Report Signed with Antonio Patient: Jb Rubio MR#: [id number] : 1960 Acct:[id number] Age/Sex: 64 / M ADM Date: 11/02/24 Loc: HO.US Attending Dr: Hazel Rojas MD Ordering Physician: Hazel Hu MD Date of Service: 11/02/24 Procedure(s): US abdomen complete Accession Number(s): [id number] cc: Hazel Hu MD ADDENDUM This document [...] by Nathaniel Estevez DO in OV> 11/03/24 1124 Addendum Cosigned By: DD/ TD/TT: 11/03/24 CLINICAL HISTORY: pt w ongoing transaminitis to eval liver US abdomen complete Comparison: CR - XR KUB - 04/23/24 00:39 EST US/NM/SR - US RETROPERITONEUM LIMITED - 06/13/22 16:28 [...] 11/03/24 1037 DD/ 1036 TD/TT: 11/03/24 1036 Mathematics Academic Chair: Procedure Note Donotuseinterpreter, Image - 11/03/2024 [place] [address] Ultrasound Report Signed with Addenda Patient: Jb Rubio [facility]#: [id number] : 1960cct:[id number] Age/Sex: 64 / MADM Date: 11/02/24 Loc: HO.US Attending Dr: Hazel Rojas MD Ordering Physician: Hazel Hu MD Date of Service: 11/02/24 Procedure(s): US abdomen complete Accession Number(s): [id number] cc: Hazel Hu MD ADDENDUM This document [...] by Nathaniel Estevez DO in OV> 11/03/24 1124 Addendum Cosigned By: DD/ TD/TT: 11/03/24 CLINICAL HISTORY: pt w ongoing transaminitis to eval liver US abdomen complete Comparison: CR - XR KUB - 04/23/24 00:39 EST US/NM/SR - US RETROPERITONEUM LIMITED - 06/13/22 16:28 [...] Estevez DO in OV> 11/03/24 1037 DD/ TD/TT: 11/03/24 103 Mathematics Academic Chair: us Hazel Rojas MD IM US PROCEDURES Edited Result - Final * (ABNORMAL) Comprehensive Metabolic Panel (11/01/2024 1:55 PM EDT) Sodium 139 135 - 145 mmol/L [facility] Potassium 4.5 3.3 - 5.1 mmol/L [facility] Chloride 104 96 - 108 mmol/L [facility] Carbon Dioxide 27 22 - 29 mmol/L [facility] Anion Gap 13 12 - 20 [facility] Urea Nitrogen (BUN) 14 9 - 16 mg/dL [facility] Creatinine, Serum 0.91 0.5 - 1.4 mg/dL [facility] Estimated Glomerular Filt Rate >60 [facility] Comment:Chronic Kidney Disea se: Estimated GFR < 60 mL/min/1.18c1Ryqmbl Kidney Disease: Estimated GFR < 15 mL/min/1.73m2 Glucose 94 60 - 115 mg/dL [facility] Calcium 9.7 8.4 - 10.2 mg/dL [facility] Bilirubin, Total 0.4 0.0 - 1.0 mg/dL [facility] Aspartate Amino Transferase 47(H) 5 - 37 U/L [facility] Alanine Aminotransferase 37 0 - 40 U/L [facility] Total Protein 7.6 6.5 - 8.0 g/dL [facility] Albumin Level 4.8 3.5 - 5.0 g/dL [facility] Alkaline Phosphatase 75 39 - 117 U/L [facility] Blood Venous blood specimen / Unknown 11/01/2024 1:55 PM EDT 11/01/2024 4:11 PM EDT us Hazel Rojas MD LAB BLOOD ORDERAB LES Final Result [facility] [address] [place] [phone] * Lipid Panel, Standard (08/17/2024 9:29 AM EDT) Triglycerides 80 <150 mg/dL [facility] Comment:Desirable Triglyceri de: less than 150 mg/dLBorderline High Triglyceride 150-199 mg/dLHigh Triglyceride: 200-499 mg/dLVery High Triglyceride: greater than or equal to 5OO mg/dL Cholesterol 182 <200 mg/dL [facility] Comment:Desirable Cholestero l: less than 200 mg/dLBorderline High Cholesterol: 200-239 mg/dLHigh Cholesterol: greater than 239 mg/dL LDL Cholesterol Calculated 83 <100 mg/dL [facility] Comment:Desirable LDL: less than 100 mg/dLNear Optimal/Above Optimal LDL: 110- 129 mg/dLBorderline High LDL: 130-159 mg/dLHigh LDL: 160-189 mg/dLVery High LDL: greater than or equal to 190 mg/dL HDL Cholesterol 83 >40 mg/dL [facility] Comment:Desirable HDL: great er than 40 mg/dL Note: This HDL assay may give artificially low results in patients with liver disease. Blood Venous blood specimen / Unknown 08/17/2024 9:29 AM EDT 08/17/2024 11:07 AM EDT us Hazel Rojas MD LAB BLOOD ORDERAB LES Final Result [facility] [address] [place] [phone] * HIV-1/2 Antigen and Antibodies, Fourth Generation, with Reflexes (02/13/2023 8:25 AM EDT) HIV AB/AG Nonreactive Nonreactive [facility] Comment:HIV-1 p24 Ag and/or HIV-1/HIV-2 Ab not detected.A test result that is nonreactive does not exclude thepossibility of exposure to or infection with HIV-1 and/orHIV-2. Nonreactive results in this assay for individualswith prior exposure to HIV-1 and/or HIV-2 may be due toantigen and antibody levels that are below the limit ofdetection of this assay.The [employer]ice[employer]M HIV Ag/Ab Combo assay result andsupplemental assay results should be interpreted inconjunction with the patient's clinical presentation,history and other laboratory results. If the results areinconsistent with clinical evidence, additional testing issuggested to confirm the result. Blood Venous blood specimen / Unknown 02/13/2023 8:25 AM EDT 02/13/2023 11:12 AM EDT Hazel Rojas MD LAB BLOOD ORDERAB LES Final Result [facility] [address] [place] [phone] from Last 3 Months or Most Recently Relevant to Health Maintenance Insurance [facility] C3 DENTAL-[facility] MEDICAID STAND ADULT Care Teams Order Planner Relationship Specialty Start Date End Date Hazel Hu MD [address] [place] [phone] PCP - General Internal Medicine 01/08/23 Leonora Michel, SALINA [address] [place] [phone] Registered Nurse Family Medicine 09/08/24 Nelida Serrato 09/08/24
--- OUTSIDE RECORDS SUMMARY | 2025-02-01 13:01 | XMS_ITS | Encounter Summary ---
Author Organization [employer] Address [address] [facility] 7[address] [place] [address] Care Team Providers Care Shucker Name Role Phone Hazel Hu MD Primary Care Pro vider Leonora Michel RN Unavailable [phone] Nelida Serrato Unavailable Reason for Visit * Reason Comments Med Refill Encounter Details Date Type Department Care Team (Late st Contact Info) Description 05/25/2024 Refill [facility] [address] [place] [address] Hazel Hu MD [address] [place], [place] [phone] Annual physical exam Social History Tobacco Use [...] Description 02/11/2025 9:00 AM EDT Clinical Support [facility] [address] [place] [phone] Angeline Bond RN [address] [place] [address] 02/25/2025 11:30 AM EST Office Visit [facility] [address] [place] [phone] Eric Muñoz MD [address] [place] [phone] documented as of this encounter Goals Goal [...] documented as of this encounter Care Teams Shucker Relationship Specialty Start Date End Date Hazel Hu MD [address] [place] [address] PCP - General Internal Medicine 01/08/23 Leonora Michel RN [address] [place] [phone] Registered Nurse Family Medicine 09/08/24 Nelida Serrato 09/08/24 documented as of this encounter
--- OUTSIDE RECORDS SUMMARY | 2025-02-01 13:02 | XMS_ITS | Encounter Summary ---
Author Organization [employer] Address [address] [facility] 7t [place] [address] Care Team Providers Care Maintenance Supervisor Mechanical Name Role Phone Hazel uH MD Primary Care Pro vider Leonora Michel RN Unavailable [phone] Nelida Serrato Unavailable Reason for Visit * Reason Comments Med Refill Encounter Details Date Type Department Care Team (Late st Contact Info) Description 08/09/2024 Refill [facility] [address] [place], [place] [phone] Yahir Hickman MD [address] [place], [place] [phone] Social History Tobacco Use Types Packs/Day Years [...] the past 12 months, has t he [employer], gas, oil or water company threatened to [...] Description 02/11/2025 9:00 AM EDT Clinical Support [facility] [address] [place] [phone] Angeline Bond RN [address] [place] [address] 02/25/2025 11:30 AM EST Office Visit [facility] [address] [place] [phone] Eric Muñoz MD [address] [place] [phone] documented as of this encounter Goals Goal Patient Goal Type Associated Problems Recent Progress Patient-Stated? Author Smoking cessation General No Dari Simmons, PharmD documented as of this encounter Visit Diagnoses Not on filedocumented in this encounter Additional Health Concerns Assessment Noted Time PHQ-9 Depression Total Score: 3 02/13/20 23 10:59 AM EDT documented as of this encounter Care Teams Maintenance Supervisor Mechanical Relationship Specialty Start Date End Date Hazel Hu MD [address] [place] [address] [phone] PCP - General Internal Medicine 01/08/23 Leonora Michel, SALINA [address] [place] [phone] Registered Nurse Family Medicine 09/08/24 Nelida Serrato 09/08/24 documented as of this encounter
--- OUTSIDE RECORDS SUMMARY | 2025-02-01 13:02 | XMS_ITS | Encounter Summary ---
Author Organization [employer] Address [address] [facility] 7t [place] [address] Care Team Providers Care Advertising Editor Name Role Phone Hazel Hu MD Primary Care Pro vider Leonora Michel RN Unavailable [phone] Nelida Serrato Unavailable Reason for Visit * Reason Onset Date Comments Med Refill 01/14/2024 Encounter Details Date Type Department Care Team ([facility] st Contact Info) Description 01/14/2024 Telephone [facility] [address] [place] [address] Hazel Hu MD [address] [place] [address] Med Refill Social History Tobacco Use Types [...] 50 MG tablet To be sent to: [facility] [place], [place] - [address] [facility] documented in this encounter Plan of Treatment Upcoming Encounters Date Type Department Care Team (Late st Contact Info) Description 02/11/2025 9:00 AM EDT Clinical Support [address] [address] Angeline Bond RN [address] [place], [place] [phone] 02/25/2025 11:30 AM EST Office Visit [address] [address] Eric Muñoz MD [address] [place], [place] [phone] documented as of this encounter Goals Goal Patient Goal Type Associated Problems Recent Progress Patient-Stated? Author Smoking cessation General Dari Bravo, PharmD documented as of this encounter Visit Diagnoses Not on filedocumented in this encounter Additional Health Concerns Assessment Noted Time PHQ-9 Depression Total Score: 3 02/13/20 23 10:59 AM EDT documented as of this encounter Care Teams Advertising Editor Relationship Specialty Start Date End Date Hazel Hu MD [address] [place] [address] PCP - General Internal Medicine 01/08/23 Leonora Michel RN [address] [place] [address] Registered Nurse Family Medicine 09/08/24 Nelida Serrato 09/08/24 documented as of this encounter
--- OUTSIDE RECORDS SUMMARY | 2025-02-01 13:02 | XMS_ITS | Encounter Summary ---
Author Organization [employer] Address [address] [facility] 7t [place] [address] Care Team Providers Care Rn Recovery Name Role Phone Hazel Hu MD Primary Care Pro vider Leonora Michel RN Unavailable [phone] Nelida Serrato Unavailable Reason for Visit * Reason Onset Date Comments Med Refill 01/14/2024 Encounter Details Date Type Department Care Team ([facility] st Contact Info) Description 01/14/2024 Telephone [facility] [address] [place] [address] Hazel Hu MD [address] [place] [address] Med Refill Social History Tobacco Use Types [...] 50 MG tablet To be sent to: [facility] - [place], [place] - [address] [place] [address] documented in this encounter Plan of Treatment Upcoming Encounters Date Type Department Care Team (Late st Contact Info) Description 02/11/2025 9:00 AM EDT Clinical Support [facility] [address] [place] [phone] Angeline Bond RN [address] [place] [address] 02/25/2025 11:30 AM EST Office Visit [facility] [address] [place] [phone] Eric Muñoz MD [address] [place], [place] [phone] documented as of this encounter Goals Goal Patient Goal Type Associated Problems Recent Progress Patient-Stated? Author Smoking cessation General Dari Bravo, PharmD documented as of this encounter Visit Diagnoses Not on filedocumented in this encounter Additional Health Concerns Assessment Noted Time PHQ-9 Depression Total Score: 3 02/13/20 10:59 AM EDT documented as of this encounter Care Teams Rn Recovery Relationship Specialty Start Date End Date Hazel Hu MD [address] [place] [address] PCP - General Internal Medicine 01/08/23 Leonora Michel, SALINA [address] [place] [phone] Registered Nurse Family Medicine 09/08/24 Nelida Serrato 09/08/24 documented as of this encounter
--- OUTSIDE RECORDS SUMMARY | 2025-02-01 13:02 | XMS_ITS | Encounter Summary ---
Author Organization [employer] Address [address] [facility] 7t [place] [address] Care Team Providers Care Clinical Haematologist Name Role Phone Hazel Hu MD Primary Care Pro vider Leonora Michel RN Unavailable [phone] Nelida Serrato Unavailable Reason for Visit * Reason Comments Med Refill Encounter Details Date Type Department Care Team (Late st Contact Info) Description 10/02/2023 Refill [facility] [address] [place] [address] Hazel Hu MD 230 [place], [place] [phone] Lumbago with sciatica, left side Social History [...] Clinical Support [facility] [address] [place] [address] Angeline Bond RN 505 [place] [address] 02/25/2025 11:30 AM EST Office Visit [facility] [address] [place] [address] Eric Muñoz MD [address] [place] [address] documented as of this encounter Goals Goal Patient Goal Type Associated Problems Recent Progress Patient-Stated? Author Smoking cessation General Dari Bravo, SusieD documented as of this encounter Visit Diagnoses Diagnosis Lumbago with sciatica, left side documented in this encounter Additional Health Concerns Assessment Noted Time PHQ-9 Depression Total Score: 3 02/13/20 23 10:59 AM EDT documented as of this encounter Care Teams Clinical Haematologist Relationship Specialty Start Date End Date Hazel Hu MD [address] [place] [address] PCP - General Internal Medicine 01/08/23 Leonora Michel RN [address] [place] [address] Registered Nurse Family Medicine 09/08/24 Nelida Serrato 09/08/24 documented as of this encounter
--- OUTSIDE RECORDS SUMMARY | 2025-02-01 13:02 | XMS_ITS | Encounter Summary ---
Author Organization [employer] Address 75 [facility] 7t [place] [address] Care Team Providers Care Content Management Consultant Name Role Phone Hazel Hu MD Primary Care Pro vider Leonora Michel RN Unavailable [phone] Nelida Serrato Unavailable Reason for Visit * Reason Comments Med Refill Encounter Details Date Type Department Care Team (Late st Contact Info) Description 08/19/2024 Refill [facility] 230 [place], [place] [phone] Yahir Hickman MD 230 [place], [place] [phone] Social History Tobacco Use Types Packs/Day Years [...] the past 12 months, has t he [employer], gas, oil or water company threatened to [...] Clinical Support [facility] [address] [place] [address] Angeline Bond RN 505 [place] [address] 02/25/2025 11:30 AM EST Office Visit [facility] [address] [place] [address] Eric Muñoz MD [address] [place] [address] documented as of this encounter Goals Goal Patient Goal Type Associated Problems Recent Progress Patient-Stated? Author Smoking cessation General No Dari Simmons, PharmD documented as of this encounter Visit Diagnoses Not on filedocumented in this encounter Additional Health Concerns Assessment Noted Time PHQ-9 Depression Total Score: 3 02/13/20 23 10:59 AM EDT documented as of this encounter Care Teams Content Management Consultant Relationship Specialty Start Date End Date Hazel Hu MD [address] [place] [address] [phone] PCP - General Internal Medicine 01/08/23 Leonora Michel, SALINA [address] [place] [address] Registered Nurse Family Medicine 09/08/24 Nelida Serrato 09/08/24 documented as of this encounter
--- OUTSIDE RECORDS SUMMARY | 2025-02-01 13:02 | XMS_ITS ---
Author Organization [employer] Address 75 [facility] 7t [place] [address] Care Team Providers Care Coal Pulverizer Operator Name Role Phone Hazel Hu MD Primary Care Pro vider Leonora Michel RN Unavailable Nelida Serrato Unavailable CM Complex Status:Outreach In Progress (Enrolling) Start date:09/08/2024 Enrollment reason:Referred by provider Overview PCP Referral- PT needs help with apts Case Team Name Relationship Phone Leonora Michel RN(Responsible Staff) Registered Nurse [phone] Continued Care and Services Coordination
--- OUTSIDE RECORDS SUMMARY | 2025-02-01 13:02 | XMS_ITS | Encounter Summary ---
Author Organization [employer] Address 75 [facility] 7t [place] [address] Care Team Providers Care Director Of Event Sales Name Role Phone Hazel Hu MD Primary Care Pro vider Leonora Michel RN Unavailable [phone] Nelida Serrato Unavailable Reason for Visit * Reason Comments Med Refill Encounter Details Date Type Department Care Team (Late st Contact Info) Description 01/27/2025 Refill [facility] 230 [place] [address] Hazel Hu MD 230 [place] [address] Chronic neck pain; Left shoulder pain, unspecified chronicity Social History Tobacco Use Types Packs/Day Years [...] Telephone Encounter - Marysol Ocasio RN - 01/27/2025 1:12 PM EDT TRANSMITTER ENGINEER reviewed. Pt last picked up 28 day supply of tramadol 12/23/24. Earliest fill date of 01/20/25. Upcoming SADDLE AND HARNESS MAKER appointment scheduled for 02/11/25. Refill appropriate. Queued documented in this encounter Plan of Treatment Upcoming Encounters Date Type Department Care Team (Late st Contact Info) Description 02/11/2025 9:00 AM EDT Clinical Support [facility] [address] [place] [address] Angeline Bond RN [address] [place] [address] 02/25/2025 11:30 AM EST Office Visit [address] [address] Eric Muñoz MD 230 [place] [address] documented as of this encounter Goals Goal Patient Goal Type Associated Problems Recent Progress Patient-Stated? Author Smoking cessation General Dari Bravo, PharmD documented as of this encounter Visit Diagnoses Diagnosis Chronic neck pain Cervicalgia Left shoulder pain, unspecified chronicity documented in this encounter Additional Health Concerns Assessment Noted Time PHQ-9 Depression Total Score: 0 09/04/19 25 1:01 PM EDT documented as of this encounter Care Teams Director Of Event Sales Relationship Specialty Start Date End Date Hazel Hu MD 230 [place], [place] [phone] PCP - General Internal Medicine 01/08/23 Leonora Michel, SALINA [address] [place] [address] Registered Nurse Family Medicine 09/08/24 Nelida Serrato 09/08/24 documented as of this encounter
--- OUTSIDE RECORDS SUMMARY | 2025-02-01 13:02 | XMS_ITS | Encounter Summary ---
Author Organization [employer] Address 75 [facility] 7t [place] [address] Care Team Providers Care Scanning Coordinator Name Role Phone Hazel Hu MD Primary Care Pro vider Leonora Michel RN Unavailable [phone] Nelida Serrato Unavailable Reason for Visit * Reason Comments Med Refill Encounter Details Date Type Department Care Team ([facility] st Contact Info) Description 09/01/2024 Refill [facility] 230 [place] [address] Hazel Hu MD 230 [place], [place] [phone] Social History Tobacco Use Types Packs/Day Years [...] 9:00 AM EDT Clinical Support [facility] [address] [place] [address] Angeline Bond RN 505 [place] [address] 02/25/2025 11:30 AM EST Office Visit [address] [phone] Eric Muñoz MD 230 [place] [address] documented as of this encounter Goals Goal Patient Goal Type Associated Problems Recent Progress Patient-Stated? Author Smoking cessation General Dari Bravo, PharmD documented as of this encounter Visit Diagnoses Not on filedocumented in this encounter Additional Health Concerns Assessment Noted Time PHQ-9 Depression Total Score: 3 02/13/20 23 10:59 AM EDT documented as of this encounter Care Teams Scanning Coordinator Relationship Specialty Start Date End Date Hazel Hu MD 230 [place] [address] PCP - General Internal Medicine 01/08/23 Leonora Michel RN 505 [place] [address] Registered Nurse Family Medicine 09/08/24 Nelida Serrato 09/08/24 documented as of this encounter
--- OUTSIDE RECORDS SUMMARY | 2025-02-01 13:02 | XMS_ITS ---
Author Organization [employer] Address 75 [facility] 7t [place] [address] Care Team Providers Care Hydrometeorologist Name Role Phone Hazel Hu MD Primary Care Pro vider Leonora Michel RN Unavailable [phone] Nelida Serrato Unavailable CHW Complex Status:Outreach In Progress (Enrolling) Start date:09/08/2024 Enrollment reason:Referred by provider Overview PCP Referral- PT needs help with apts. Please outreach for enrollment. Case Team Name Relationship Phone Nelida Serrato(Responsible Staff) [phone] Continued Care and Services Coordination
--- OUTSIDE RECORDS SUMMARY | 2025-02-01 13:02 | XMS_ITS | Encounter Summary ---
Author Organization [employer] Address 75 [facility] 7t [place] [address] Care Team Providers Care Educational Technology Coordinator Name Role Phone Hazel Hu MD Primary Care Pro vider Leonora Michel RN Unavailable Nelida Serrato Unavailable Encounter Details Date Type Department Care Team ([facility] Contact Info) Description 01/14/2024 Orders Only [facility] 230 [place] [address] Kacie Hutchison MD 230 [place] [address] Social History Tobacco Use Types Packs/Day Years [...] Description 02/11/2025 9:00 AM EDT Clinical Support [address] [address] Angeline Bond RN 505 [place] [address] 02/25/2025 11:30 AM EST Office Visit [facility] [address] [place] [address] Eric Muñoz MD [address] [place] [address] documented as of this encounter Goals Goal Patient Goal Type Associated Problems Recent Progress Patient-Stated? Author Smoking cessation General Dari Bravo, Moustapha documented as of this encounter Visit Diagnoses Not on filedocumented in this encounter Additional Health Concerns Assessment Noted Time PHQ-9 Depression Total Score: 3 02/13/20 23 10:59 AM EDT documented as of this encounter Care Teams Educational Technology Coordinator Relationship Specialty Start Date End Date Hazel Hu MD [address] [place] [address] PCP - General Internal Medicine 01/08/23 Leonora Michel RN [address] [place] [address] Registered Nurse Family Medicine 09/08/24 Nelida Serrato 09/08/24 documented as of this encounter
--- OUTSIDE RECORDS SUMMARY | 2025-02-01 13:02 | XMS_ITS | Encounter Summary ---
Author Organization [employer] Address 75 [facility] 7t [place] [address] Care Team Providers Care Cook Helper Name Role Phone Hazel Hu MD Primary Care Pro vider Leonora Michel RN Unavailable [phone] Nelida Serrato Unavailable Reason for Visit * Reason Comments Med Refill Encounter Details Date Type Department Care Team (Late st Contact Info) Description 07/27/2024 Refill [facility] [address] [place], [place] [phone] Kacie Hutchison MD 230 [place] [address] Lumbago with sciatica, left side Social History [...] Description 02/11/2025 9:00 AM EDT Clinical Support [address] [address] Angeline Bond RN 505 [place] [address] 02/25/2025 11:30 AM EST Office Visit [address] [address] Eric Muñoz MD [address] [place] [address] documented as of this encounter Goals Goal Patient Goal Type Associated Problems Recent Progress Patient-Stated? Author Smoking cessation General Dari Bravo, SusieD documented as of this encounter Visit Diagnoses Diagnosis Lumbago with sciatica, left side documented in this encounter Additional Health Concerns Assessment Noted Time PHQ-9 Depression Total Score: 3 02/13/20 23 10:59 AM EDT documented as of this encounter Care Teams Cook Helper Relationship Specialty Start Date End Date Hazel Hu MD [address] [place] [address] PCP - General Internal Medicine 01/08/23 Leonora Michel RN [address] [place] [address] Registered Nurse Family Medicine 09/08/24 Nelida Serrato 09/08/24 documented as of this encounter
--- OUTSIDE RECORDS SUMMARY | 2025-02-01 13:02 | XMS_ITS | Encounter Summary ---
Author Organization [employer] Address 75 [facility] 7t [place] [address] Care Team Providers Care Oncology Navigator Name Role Phone Hazel Hu MD Primary Care Pro vider Leonora Michel RN Unavailable [phone] Nelida Serrato Unavailable Reason for Visit * Reason Comments Med Refill Encounter Details Date Type Department Care Team ([facility] st Contact Info) Description 01/14/2025 Refill [facility] 230 [place] [address] Hazel Hu MD 230 [place], [place] [phone] Social History Tobacco Use Types Packs/Day Years [...] the past 12 months, has t he [employer], gas, oil or water company threatened to [...] Description 02/11/2025 9:00 AM EDT Clinical Support [facility] [address] [place] [address] Angeline Bond RN 505 [place] [address] 02/25/2025 11:30 AM EST Office Visit [facility] [address] [place] [address] Eric Muñoz MD [address] [place] [address] documented as of this encounter Goals Goal Patient Goal Type Associated Problems Recent Progress Patient-Stated? Author Smoking cessation General No Dari Simmons, PharmD documented as of this encounter Visit Diagnoses Not on filedocumented in this encounter Additional Health Concerns Assessment Noted Time PHQ-9 Depression Total Score: 0 09/04/19 25 1:01 PM EDT documented as of this encounter Care Teams Oncology Navigator Relationship Specialty Start Date End Date Hazel Hu MD [address] [place] [address] PCP - General Internal Medicine 01/08/23 Leonora Michel RN [address] [place] [address] Registered Nurse Family Medicine 09/08/24 Nelida Serrato 09/08/24 documented as of this encounter
--- OUTSIDE RECORDS SUMMARY | 2025-02-01 13:02 | XMS_ITS | Encounter Summary ---
Author Organization [employer] Address 75 [facility] 7t [place] [address] Care Team Providers Care Concrete Pavement Installer Name Role Phone Christa Banegas ROTARY ENGRAVER Primary Care Provider Anna Hazel Hanson MD Primary Care Pro vider Leonora Michel RN Unavailable [phone] Nelida Serrato Unavailable Reason for Visit * Reason Onset Date Comments Appointment Request 06/18/2022 Encounter Details Date Type Department Care Team (Late st Contact Info) Description 06/18/2022 Telephone [facility] [address] [place] [address] Christa Banegas FNP Appointment Request Social History [...] no answer. L/M reminding he [facility] for OUTSIDE [employer]S SALES initial appt on 04/25/22 and now is cancelling his [employer] SALES initial appt 06/25/22. Left # for him to call and reschedule. Will update PCP. * Telephone Encounter - Randall Jones - 06/18/2022 12:36 PM EST Tc from pt requesting to r/s appt on 06-25-22 ( Initial OUTSIDE [employer]S SALES ) documented in this encounter Plan of Treatment Upcoming Encounters Date Type Department Care Team (Late st Contact Info) Description 02/11/2025 9:00 AM EDT Clinical Support [address] [address] Angeline Bond RN 505 [place], [place] [phone] 02/25/2025 11:30 AM EST Office Visit [address] [address] Eric Muñoz MD [address] [place] [address] documented as of this encounter Visit Diagnoses Not on filedocumented in this encounter Care Teams Concrete Pavement Installer Relationship Specialty Start Date End Date Christa Banegas FNP PCP - General Family Medicine 12/06/21 01/07/23 Hazel Hu MD [address] [place] [address] PCP - General Internal Medicine 01/08/23 Leonora Michel, SALINA [address] [place] [address] Registered Nurse Family Medicine 09/08/24 Nelida Serrato 09/08/24 documented as of this encounter
== END 2025-02-01 10:46 | disposition home or self-care (01) ==
LOC: HO.MRI 10:45
PROVIDERS: PCP Student in an Organized Health Care Education/Training Program; Visit Provider Nurse Practitioner Family
DX: R94.5 Abnormal results of liver function studies (principal); R79.89 Other specified abnormal findings of blood chemistry; F10.10 Alcohol abuse, uncomplicated
CPT/HCPCS: 74183; A9585